=== PATIENT | female | born 1995 | race Caucasian/White ===

== ENCOUNTER 2016-06-08 20:56 | Inpatient (IN) | payer MEDICAID ==
[2016-06-08] MEDS ORDERED: Nalbuphine 20 MG/1 ML Amp IVPUSH PRN (22:03)
[2016-06-08] MEDS ORDERED: Lidocaine 1% 50 ML MDV INJECT ONE (22:03)
[2016-06-08] MEDS ORDERED: Sodium Chloride 0.9% 10 ML Syringe FLUSH PRN (22:03)
[2016-06-08] MEDS ORDERED: Oxytocin/Lactated Ringers 10 UNIT/1,000 ML BAG IV SCH (22:15)
--- NOTE | 2016-06-08 23:19 | PCM.LDHP ---
L&D History of Present Illness - General Date of Service: 06/08/16 Admit Problem/Dx: Patient Status Order with Admit Dx/Problem 06/08/16 22:11 Patient Status [ADT] Routine Admission Diagnosis/Problem Admission Diagnosis/Problem Source of Information: Patient History Limitations: Reports: No limitations - History of Present Illness Introduction:: 21 y/o at 38 0/7 wks who presents with SROM. Occurred around 1999. Has been having some mild cramping, but no balwinder contractions. - Related Data Allergies/Adverse Reactions: Allergies Allergy/AdvReac Type Severity Reaction Status Date / Time red dye AdvReac Headache Verified 01/02/15 16:15 cigarette smoke Allergy Bronchospas Uncoded 07/09/13 19:45 ms mosquitos Allergy Rash Uncoded 07/09/13 19:45 red dye 40 AdvReac Headache Uncoded 05/13/14 13:04 Home Medications: Home Meds Albuterol Inhaler. 1 puff INH ASDIRECTED PRN 07/09/13 [History] Past Medical History [employer] History: Reports: Polycystic Ovaries, , Spontaneous : 2 Para: 0 LMP (Approximate): Neurological History: Reports: Migraines Psychiatric History: Reports: Depression Endocrine/Metabolic History: Reports: Hypothyroidism Hematologic History: Reports: Other (see below) (Factor V Leiden - Heterozygote , no personal history of clot) - Past Surgical History HEENT Surgical History: Reports: Tonsillectomy Musculoskeletal Surgical History: Reports: Arthroscopic knee Social & Family History - Tobacco Use Smoking Status *Q: Never Smoker Second Hand Smoke Exposure: No - Alcohol Use Alcohol Use History: No Days Per Week of Alcohol Use: 0 - Recreational Drug Use Recreational Drug Use: No Drug Use in Last 12 Months: No H&P Review of Systems - Review of Systems: Review Of Systems: See Below General: Reports: no symptoms Pulmonary: Reports: No Symptoms Cardiovascular: Reports: no symptoms Gastrointestinal: Reports: No symptoms Genitourinary: Reports: no symptoms Musculoskeletal: Reports: no symptoms Psychiatric: Reports: no symptoms L&D Exam - Exam Exam: See Below - Vital Signs Weight: 80.739 kg - OB Specific Contraction Intensity: Mild movement: active heart tones: present heart tones per min: 135 Heart Rate (FHR) Variability: Moderate (6-25 bmp) Presentation: Vertex - Velázquez Score Velázquez Score Cervix Position: Midposition Velázquez Score Consistency: Soft Velázquez Score Effacement: 51-70% Velázquez Score Dilation: 3-4 cm Velázquez Score 's Station: -2 Velázquez Score Total: 8 - Exam General: alert, oriented, cooperative Lungs: Clear to auscultation, Normal respiratory effort Cardiovascular: regular rate, regular rhythm Abdomen: soft Genitourinary: Normal external exam Extremities: normal inspection Skin: warm, dry, intact - Patient Data Lab Results last 24 hrs: Laboratory Results - last 24 hr 06/08/16 Range/Units 22:25 WBC 14.75 H (3.98-10.04) K/mm3 RBC 4.31 (3.98-5.22) M/mm3 Hgb 12.7 (11.2-15.7) gm/L Hct 37.4 (34.1-44.9) % MCV 86.8 (79.4-94.8) fl MCH 29.5 (25.6-32.2) pg MCHC 34.0 (32.2-35.5) g/dl RDW Std Deviation 41.0 (36.4-46.3) fL Plt Count 267 (182-369) K/mm3 MPV 9.9 (9.4-12.3) fl Result Diagrams: 06/08/16 22:25 - Problem List (1) 38 weeks gestation of SNOMED Code(s): 46965612 ICD Code: Z3A.38 - 38 WEEKS GESTATION OF Status: Acute Current Visit: Yes (2) Spontaneous rupture of membranes SNOMED Code(s): 892747459 ICD Code: CTI0644 - Status: Acute Current Visit: Yes (3) Heterozygous factor V Leiden affecting in third trimester, antepartum SNOMED Code(s): 840781970 ICD Code: O99.113 - OTH DIS OF BLD/BLD-FORM ORG/IMMUN MECHNSM COMP PREG, 3RD TRI; D68.51 - ACTIVATED PROTEIN C RESISTANCE Status: Acute Current Visit: Yes (4) Hypothyroid SNOMED Code(s): 37517958 ICD Code: E03.9 - HYPOTHYROIDISM, UNSPECIFIED Status: Acute Current Visit : Yes Qualifiers: Hypothyroidism type: acquired Qualified Code(s): E03.9 - Hypothyroidism, unspecified Problem List Initiated/Reviewed/Updated: Yes Orders Last 24hrs: Active Orders 24 hr Category Date Time Status Patient Status [ADT] Routine ADT 06/08/16 22:11 Active Activity as Tolerated [RC] PFP Care 06/08/16 22:11 Active Communication Order [RC] ASDIRECTED Care 06/08/16 22:11 Active Heart Tones [RC] ASDIRECTED Care 06/08/16 22:12 Active Notify Provider [RC] PFP Care 06/08/16 22:11 Active Notify Provider [RC] PRN Care 06/08/16 22:11 Active Peripheral IV Care [RC] . DIRECTED Care 06/08/16 22:12 Active Vital Signs [RC] PER UNIT ROUTINE Care 06/08/16 22:11 Active Clear Liquid Diet [DIET] Diet 06/08/16 Breakfast Active TYPE AND SCREEN [BBK] Stat Lab 06/08/16 22:25 Received Lactated Ringers [Ringers, Lactated] 1,000 ml Med 06/08/16 22:15 Active IV ASDIRECTED Nalbuphine [Nubain] Med 06/08/16 22:03 Active 10 mg IVPUSH Q2H PRN Oxytocin/Lactated Ringers [Pitocin in LR 10 Units/1,000 Med 06/08/16 22:15 Active ML] 10 unit in 1,000 ml IV TITRATE Sodium Chloride 0.9% [Saline Flush] Med 06/08/16 22:03 Active 10 ml FLUSH ASDIRECTED PRN Electronic Heart Tones Ext w TOCO [WOMSER] Oth 06/08/16 22:11 Ordered Routine Electronic Heart Tones Internal [WOMSER] Per Unit Oth 06/08/16 22:11 Ordered Routine Peripheral IV Insertion Adult [OM.PC] Routine Oth 06/08/16 22:11 Ordered Resuscitation Status Routine Resus Stat 06/08/16 22:03 Ordered Medication Orders Lactated Ringer's (Ringers, Lactated) 1,000 mls @ 100 mls/hr IV ASDIRECTED LUCAS Oxytocin/Lactated Ringer's (Pitocin In Lr 10 Units/1,000 Ml) 10 unit in 1,000 mls @ 500 mls/hr IV TITRATE LUCAS PRN Reason: Protocol Nalbuphine HCl (Nubain) 10 mg IVPUSH Q2H PRN PRN Reason: Pain (moderate 4-6) Sodium Chloride (Saline Flush) 10 ml FLUSH ASDIRECTED PRN PRN Reason: Keep Vein Open Assessment/Plan Comment:: 21 y/o at 38 0/7 wks who presents with SROM * CBC and T&S * GBS negative, no need for antibiotics * Start pitocin in ~2 hours if no increase in contractions * Pain management per patient preference * Continue home Synthroid * Heterozygote Factor V - Not on anti-coagulation. May need to start depending upon method/circumstances of delivery.
[2016-06-09] MEDS ORDERED: fentaNYL 100 MCG/2 ML SDV EPIDUR PRN (00:49)
[2016-06-09] MEDS ORDERED: Ondansetron 4 MG/2 ML SDV IVPUSH PRN (00:49)
--- NOTE | 2016-06-09 00:55 | PCM.PREANE ---
Preanesthetic Assessment - Anesthesia/Transfusion/Family Hx Anesthesia History: Prior Anesthesia Without Reaction Family History of Anesthesia Reaction: No Transfusion History: No Prior Transfusion(s) Intubation History: Unknown - Review of Systems General: No Symptoms Pulmonary: No Symptoms (exercise induced asthma- last used rescue inhaler 1 year ago.) Cardiovascular: No Symptoms Gastrointestinal: No symptoms Neurological: No Symptoms Other: Reports: Thyroid Problems (hypothyroid) - Physical Assessment NPO Status Date: 06/08/16 NPO Status Time: 19:30 Pulse: 105 O2 Sat by Pulse Oximetry: 97 Respiratory Rate: 16 Blood Pressure: 115/72 Temperature: 37.1 C Height: 1.6 m Weight: 80.739 kg ASA Class: 2 Mental Status: Alert & Oriented x3 Airway Class: Mallampati = 2 Dentition: Reports: Normal Dentition, Caries Thyro-Mental Finger Breadths: 3 Mouth Opening Finger Breadths: 3 ROM/Head Extension: Full Lungs: Clear to auscultation, Normal respiratory effort Cardiovascular: Regular Rate, Regular Rhythm - Lab Values: Laboratory Last Values WBC 14.75 K/mm3 (3.98-10.04) H 06/08/16 22:25 RBC 4.31 M/mm3 (3.98-5.22) 06/08/16 22:25 Hgb 12.7 gm/L (11.2-15.7) 06/08/16 22:25 Hct 37.4 % (34.1-44.9) 06/08/16 22:25 MCV 86.8 fl (79.4-94.8) 06/08/16 22:25 MCH 29.5 pg (25.6-32.2) 06/08/16 22:25 MCHC 34.0 g/dl (32.2-35.5) 06/08/16 22:25 RDW Std Deviation 41.0 fL (36.4-46.3) 06/08/16 22:25 Plt Count 267 K/mm3 (182-369) 06/08/16 22:25 MPV 9.9 fl (9.4-12.3) 06/08/16 22:25 Blood Type AB POSITIVE 06/08/16 22:25 Gel Antibody Screen Negative 06/08/16 22:25 Above lab values reviewed and noted. - Allergies Allergies/Adverse Reactions: Allergies Allergy/AdvReac Type Severity Reaction Status Date / Time red dye AdvReac Headache Verified 01/02/15 16:15 cigarette smoke Allergy Bronchospas Uncoded 07/09/13 19:45 ms mosquitos Allergy Rash Uncoded 07/09/13 19:45 red dye 40 AdvReac Headache Uncoded 05/13/14 13:04 - Anesthesia Plan Pre-Op Medication Ordered: None - Acknowledgements Anesthesia Type Planned: Epidural Pt an Appropriate Candidate for the Planned Anesthesia: Yes Alternatives and Risks of Anesthesia Discussed w Pt/Guardian: Yes Pt/Guardian Understands and Agrees with Anesthesia Plan: Yes PreAnesthesia Questionnaire - SUBSTANCE USE Smoking Status *Q: Never Smoker Second Hand Smoke Exposure: No Days Per Week of Alcohol Use: 0 Recreational Drug Use History: No - HOME MEDS Home Medications: Home Meds Albuterol Inhaler. 1 puff INH ASDIRECTED PRN 07/09/13 [History] Topiramate [Topamax] 100 mg PO BEDTIME 01/02/15 [History] Hydrocodone/Acetaminophen [[place] 5-325] 1 - 2 tab PO Q4H PRN #30 tablet [Rx] - CURRENT (IN HOUSE) MEDS Current Meds: Current Medications Ephedrine Sulfate (Ephedrine Sulfate) 5 mg IVPUSH ASDIRECTED PRN PRN Reason: Hypotension Fentanyl (Sublimaze) 100 mcg EPIDUR Q3H PRN PRN Reason: Pain Fentanyl/Bupivacaine HCl (Fentanyl/Bupivacaine/Ns 2 Mcg-0.125% 100 Ml) 100 ml EPIDUR ASDIRECTED LUCAS Lactated Ringer's (Ringers, Lactated) 1,000 mls @ 100 mls/hr IV ASDIRECTED LUCAS Oxytocin/Lactated Ringer's (Pitocin In Lr 10 Units/1,000 Ml) 10 unit in 1,000 mls @ 500 mls/hr IV TITRATE LUCAS PRN Reason: Protocol Nalbuphine HCl (Nubain) 10 mg IVPUSH Q2H PRN PRN Reason: Pain (moderate 4-6) Ondansetron HCl (Zofran) 4 mg IVPUSH ONETIME PRN PRN Reason: Nausea/Vomiting Sodium Chloride (Saline Flush) 10 ml FLUSH ASDIRECTED PRN PRN Reason: Keep Vein Open Discontinued Medications Lidocaine HCl (Xylocaine 1%) 50 ml INJECT ONETIME ONE Stop: 06/08/16 22:04
[2016-06-09] MEDS ORDERED: Bupivacaine/fentaNYL/NS 100 ML Bag EPIDUR SCH (01:00)
[2016-06-09] MEDS ORDERED: Oxytocin/Lactated Ringers 10 UNIT/1,000 ML BAG IV SCH (02:00)
[2016-06-09] MEDS: Lactated Ringers 1,000 ML IV SCH ×3 (02:52→06:10)
[2016-06-09] MEDS: ePHEDrine 50 MG/ML SDV IVPUSH PRN ×2 (04:24→04:36)
--- NOTE | 2016-06-09 08:03 | PCM.DEL ---
L & D Note - Delivery Note Labor: augmented by oxytocin Delivery Outcome: Livebirth Delivery Method: Spontaneous Vaginal Delivery Delivery Mode: Spontaneous Presentation: Right Occiput Anterior (JENNY) Nuchal cord: none Anesthesia Type: Epidural Amniotic Fluid Description: Clear Episiotomy Type: None Laceration: 2nd degree, labial, perineal Suture type: vicryl Suture size: 2-0 Placenta: intact, spontaneous Cord: 3 vessels Estimated blood loss: 300 Resuscitation needed: Yes : bulb syringe, stimulated, warmed, blanket used, warmer used Score 1 min: 8 Score 5 min: 9 Delivery Comments (Free Text/Narrative):: Patient found to be complete and began pushing. With maternal pushing effort head delivered from an JENNY presentation. No nuchal cord present. With gentle downward traction the shoulders and body delivered. placed on maternal abdomen. Cord clamped and cut. Cord blood obtained. Placenta allowed time to separate and spontaneously expelled. Inspection of the perineum showed a second-degree laceration which did extend up to the left labia. This was repaired with a running 2-0 Vicryl in the typical fashion. - Patient Data Vitals - most recent: Last Vital Signs Temp 37.1 C 06/09/16 01:05 Pulse 105 H 06/09/16 01:05 Resp 16 06/09/16 01:05 BP 115/72 06/09/16 01:05 Pulse Ox 97 06/09/16 01:05 Weight - most recent: 80.739 kg I&O - last 24 hours: Intake & Output 06/08/16 06/09/16 06/09/16 22:59 06:59 14:59 Intake Total 1999 Balance 1999 Lab Results last 24 hrs: Laboratory Results - last 24 hr 06/08/16 06/08/16 Range/Units 22:25 22:25 WBC 14.75 H (3.98-10.04) K/mm3 RBC 4.31 (3.98-5.22) M/mm3 Hgb 12.7 (11.2-15.7) gm/L Hct 37.4 (34.1-44.9) % MCV 86.8 (79.4-94.8) fl MCH 29.5 (25.6-32.2) pg MCHC 34.0 (32.2-35.5) g/dl RDW Std Deviation 41.0 (36.4-46.3) fL Plt Count 267 (182-369) K/mm3 MPV 9.9 (9.4-12.3) fl Blood Type AB POSITIVE Gel Antibody Screen Negative Med Orders - Current: Current Medications Ephedrine Sulfate (Ephedrine Sulfate) 5 mg IVPUSH ASDIRECTED PRN PRN Reason: Hypotension Last Admin: 06/09/16 04:36 Dose: 5 mg Fentanyl (Sublimaze) 100 mcg EPIDUR Q3H PRN PRN Reason: Pain Last Admin: 06/09/16 03:20 Dose: 100 mcg Fentanyl/Bupivacaine HCl (Fentanyl/Bupivacaine/Ns 2 Mcg-0.125% 100 Ml) 100 ml EPIDUR ASDIRECTED LUCAS Last Admin: 06/09/16 03:20 Dose: 100 ml Lactated Ringer's (Ringers, Lactated) 1,000 mls @ 100 mls/hr IV ASDIRECTED LUCAS Last Admin: 06/09/16 06:10 Dose: 100 mls/hr Oxytocin/Lactated Ringer's (Pitocin In Lr 10 Units/1,000 Ml) 10 unit in 1,000 mls @ 500 mls/hr IV TITRATE LUCAS PRN Reason: Protocol Oxytocin/Lactated Ringer's (Pitocin In Lr 10 Units/1,000 Ml) 10 unit in 1,000 mls @ 12 mls/hr IV TITRATE LUCAS; 2 MUNITS/MIN PRN Reason: Protocol Last Admin: 06/09/16 03:50 Dose: 2 munits/min, 12 mls/hr Nalbuphine HCl (Nubain) 10 mg IVPUSH Q2H PRN PRN Reason: Pain (moderate 4-6) Last Admin: 06/09/16 02:21 Dose: 10 mg Ondansetron HCl (Zofran) 4 mg IVPUSH ONETIME PRN PRN Reason: Nausea/Vomiting Stop: 06/10/16 00:50 Sodium Chloride (Saline Flush) 10 ml FLUSH ASDIRECTED PRN PRN Reason: Keep Vein Open Discontinued Medications Lidocaine HCl (Xylocaine 1%) 50 ml INJECT ONETIME ONE Stop: 06/08/16 22:04 - Problem List & Annotations (1) 38 weeks gestation of SNOMED Code(s): 47322483 Code(s): Z3A.38 - 38 WEEKS GESTATION OF Status: Acute Current Visit: Yes (2) Spontaneous rupture of membranes SNOMED Code(s): 549857383 Code(s): TTC6811 - Status: Acute Current Visit: Yes (3) Heterozygous factor V Leiden affecting in third trimester, antepartum SNOMED Code(s): 817308158 Code(s): O99.113 - OTH DIS OF BLD/BLD-FORM ORG/IMMUN MECHNSM COMP PREG, 3RD TRI; D68.51 - ACTIVATED PROTEIN C RESISTANCE Status: Acute Current Visit: Yes (4) Hypothyroid SNOMED Code(s): 42666516 Code(s): E03.9 - HYPOTHYROIDISM, UNSPECIFIED Status: Acute Current Visit : Yes Qualifiers: Hypothyroidism type: acquired Qualified Code(s): E03.9 - Hypothyroidism, unspecified (5) Vaginal delivery SNOMED Code(s): 907359918 Code(s): O80 - ENCOUNTER FOR FULL-TERM UNCOMPLICATED DELIVERY Status: Acute Current Visit: Yes - Problem List Review Problem List Initiated/Reviewed/Updated: Yes - My Orders Last 24 Hours: My Active Orders 06/08/16 22:03 Nalbuphine [Nubain] 10 mg IVPUSH Q2H PRN Sodium Chloride 0.9% [Saline Flush] 10 ml FLUSH ASDIRECTED PRN Resuscitation Status Routine 06/08/16 22:11 Patient Status [ADT] Routine Activity as Tolerated [RC] PFP Communication Order [RC] ASDIRECTED Notify Provider [RC] PFP Notify Provider [RC] PRN Vital Signs [RC] PER UNIT ROUTINE Electronic Heart Tones Ext w TOCO [WOMSER] Routine Electronic Heart Tones Internal [WOMSER] Per Unit Routine Peripheral IV Insertion Adult [OM.PC] Routine 06/08/16 22:12 Heart Tones [RC] ASDIRECTED Peripheral IV Care [RC] . DIRECTED 06/08/16 22:15 Lactated Ringers [Ringers, Lactated] 1,000 ml IV ASDIRECTED Oxytocin/Lactated Ringers [Pitocin in LR 10 Units/1,000 ML] 10 unit in 1,000 ml IV TITRATE 06/08/16 22:25 PATIENT RETYPE [BBK] Stat TYPE AND SCREEN [BBK] Stat 04/19/17 02:00 Oxytocin/Lactated Ringers [Pitocin in LR 10 Units/1,000 ML] 10 unit in 1,000 ml IV TITRATE - Assessment Assessment:: 21 y/o G2 now P1011 PPD#0 from at 38 0/7 wks - Plan Plan:: * Routine cares * Encourage breast-feeding * Discharged home in 1-2 days pending patient preference Hypothyroidism * Continue home Synthroid * TSH at check Heterozygote Factor V * No personal history of clot. Has not been on anticoagulation this . Given delivery was uncomplicated and she was only with an epidural for about 6 hours I do think it's reasonable to continue without anticoagulation. Will monitor, however, closely for any signs of DVT
[2016-06-09] MEDS ORDERED: Docusate Sodium 100 MG Cap PO PRN (08:30)
[2016-06-09] MEDS ORDERED: Benzocaine/Menthol 20%-0.5% Spray 56 GM Canister TOP PRN (08:30)
[2016-06-09] MEDS ORDERED: Witch Hazel Medicated Pads 100/Jar TOP PRN (08:30)
[2016-06-09] MEDS ORDERED: Bupivacaine 0.25% 10 ML SDV ONE (08:30)
[2016-06-09] MEDS ORDERED: Acetaminophen 325 MG Tab PO PRN (08:30)
[2016-06-09] MEDS ORDERED: Lanolin 100% Cream 7 GM Tube TOP PRN (08:30)
[2016-06-09] MEDS: Ibuprofen 600 MG Tab PO PRN ×3 (09:57→23:16)
--- NOTE | 2016-06-09 15:16 | PCM48HPAN ---
Post Anesthesia Note - EVALUATION WITHIN 48HRS OF ANESTHETIC Vital Signs in Normal Range: Yes Patient Participated in Evaluation: Yes Respiratory Function Stable: Yes Airway Patent: Yes Cardiovascular Function Stable: Yes Hydration Status Stable: Yes Pain Control Satisfactory: Yes Nausea and Vomiting Control Satisfactory: Yes Mental Status Recovered: Yes
[2016-06-10] MEDS ORDERED: Levothyroxine 25 MCG Tab PO SCH (06:00)
--- NOTE | 2016-06-10 07:02 | PCM.DCSUM1 ---
Discharge Summary - Discharge Data Discharge Date: 06/10/16 Discharge Disposition: Home, Self-Care 01 Condition: Good - Discharge Diagnosis/Problem(s) (1) 38 weeks gestation of SNOMED Code(s): 63998541 ICD Code: Z3A.38 - 38 WEEKS GESTATION OF Status: Acute (2) Spontaneous rupture of membranes SNOMED Code(s): 292949541 ICD Code: MXG7641 - Status: Acute (3) Heterozygous factor V Leiden affecting in third trimester, antepartum SNOMED Code(s): 994267687 ICD Code: O99.113 - OTH DIS OF BLD/BLD-FORM ORG/IMMUN MECHNSM COMP PREG, 3RD TRI; D68.51 - ACTIVATED PROTEIN C RESISTANCE Status: Acute (4) Hypothyroid SNOMED Code(s): 02765992 ICD Code: E03.9 - HYPOTHYROIDISM, UNSPECIFIED Status: Acute Qualifiers: Hypothyroidism type: acquired Qualified Code(s): E03.9 - Hypothyroidism, unspecified (5) Vaginal delivery SNOMED Code(s): 736255181 ICD Code: O80 - ENCOUNTER FOR FULL-TERM UNCOMPLICATED DELIVERY Status: Acute - Patient Summary/Data Complications: None Consults: None Recommended Follow-up Testing/Procedures: Follow up in 5-6 weeks for check Hospital Course: 21 y/o admitted at 37 6/7 wks with SROM. Pitocin was eventually started for augmentation. She progressed well and underwent an uncomplicated . See delivery note. she did well and was discharged home on PPD #1. - Patient Instructions Diet: Regular Diet as Tolerated Activity: As Tolerated Activity, Other: Pelvic Rest for 6 weeks Driving: May Drive Today Showering/Bathing: May Shower Showering/Bathing, Other: May Bathe Notify Provider of: Fever, Increased Pain, Swelling and Redness, Drainage, Nausea and/or Vomiting - Discharge Plan Home Medications: Home Meds Albuterol Inhaler. 1 puff INH ASDIRECTED PRN 07/09/13 [History] Docusate Sodium [Colace] 100 mg PO BID PRN #0 cap 06/09/16 [Rx] Ibuprofen [IJD: Ibuprofen] 600 mg PO Q6H PRN #0 tablet 06/09/16 [Rx] Levothyroxine 25 mcg PO ACBREAKFAST tablet 06/09/16 [Rx] Patient Handouts: , Home Care Instructions for Mom Referrals: Amina Mustafa MD [Physician] - (5-6 weeks for check ) - Discharge Summary/Plan Comment DC Time >30 min.: No - Patient Data Vitals - Most Recent: Last Vital Signs Temp 36.8 C 06/10/16 04:11 Pulse 64 06/10/16 04:11 Resp 17 06/10/16 04:11 BP 110/65 06/10/16 04:11 Pulse Ox 97 06/10/16 04:11 Weight - Most Recent: 80.739 kg I&O - Last 24 hours: Intake & Output 06/09/16 06/10/16 06/10/16 22:59 06:59 14:59 Intake Total 240 Balance 240 Lab Results - Last 24 hrs: Laboratory Results - last 24 hr 06/08/16 Range/Units 22:25 Blood Type AB POSITIVE Gel Antibody Screen Negative Med Orders - Current: Current Medications Acetaminophen (Tylenol) 650 mg PO Q4H PRN PRN Reason: mild pain or fever Benzocaine/Menthol (Dermoplast Pain Relief [place]) 0 gm TOP ASDIRECTED PRN PRN Reason: Perineal Comfort Measure Last Admin: 06/09/16 09:19 Dose: 1 spray Docusate Sodium (Colace) 100 mg PO BID PRN PRN Reason: Constipation Emollient Ointment (Lansinoh Hpa) 0 gm TOP ASDIRECTED PRN PRN Reason: Sore Nipples Ibuprofen (Motrin) 600 mg PO Q6H PRN PRN Reason: Mild pain or fever Last Admin: 06/09/16 23:16 Dose: 600 mg Levothyroxine Sodium (Levothyroxine) 25 mcg PO ACBREAKFAST [facility] (Tucks) 1 pad TOP ASDIRECTED PRN PRN Reason: Hemorrhoid pain Last Admin: 06/09/16 09:19 Dose: 1 pad Discontinued Medications Ephedrine Sulfate (Ephedrine Sulfate) 5 mg IVPUSH ASDIRECTED PRN PRN Reason: Hypotension Last Admin: 06/09/16 04:36 Dose: 5 mg Fentanyl (Sublimaze) 100 mcg EPIDUR Q3H PRN PRN Reason: Pain Last Admin: 06/09/16 03:20 Dose: 100 mcg Fentanyl/Bupivacaine HCl (Fentanyl/Bupivacaine/Ns 2 Mcg-0.125% 100 Ml) 100 ml EPIDUR ASDIRECTED LUCAS Last Admin: 06/09/16 03:20 Dose: 100 ml Lactated Ringer's (Ringers, Lactated) 1,000 mls @ 100 mls/hr IV ASDIRECTED LUCAS Last Admin: 06/09/16 06:10 Dose: 100 mls/hr Oxytocin/Lactated Ringer's (Pitocin In Lr 10 Units/1,000 Ml) 10 unit in 1,000 mls @ 500 mls/hr IV TITRATE LUCAS PRN Reason: Protocol Oxytocin/Lactated Ringer's (Pitocin In Lr 10 Units/1,000 Ml) 10 unit in 1,000 mls @ 12 mls/hr IV TITRATE LUCAS; 2 MUNITS/MIN PRN Reason: Protocol Last Admin: 06/09/16 03:50 Dose: 2 munits/min, 12 mls/hr Lidocaine HCl (Xylocaine 1%) 50 ml INJECT ONETIME ONE Stop: 06/08/16 22:04 Nalbuphine HCl (Nubain) 10 mg IVPUSH Q2H PRN PRN Reason: Pain (moderate 4-6) Last Admin: 06/09/16 02:21 Dose: 10 mg Ondansetron HCl (Zofran) 4 mg IVPUSH ONETIME PRN PRN Reason: Nausea/Vomiting Stop: 06/10/16 00:50 Sodium Chloride (Saline Flush) 10 ml FLUSH ASDIRECTED PRN PRN Reason: Keep Vein Open *Q Meaningful Use (DIS) - VTE *Q VTE Criteria *Q: - Stroke *Q Stroke Criteria *Q: - AMI *Q AMI Criteria *Q:
--- NOTE | 2016-06-10 07:02 | PCM.PNPP ---
- General Info Date of Service: 06/10/16 Functional Status: Reports: pain controlled, tolerating diet, ambulating, urinating - Review of Systems General: Reports: No Symptoms Pulmonary: Reports: no symptoms Cardiovascular: Reports: No Symptoms Gastrointestinal: Reports: No symptoms Genitourinary: Reports: no symptoms Musculoskeletal: Reports: no symptoms - Patient Data Vital Signs - most recent: Last Vital Signs Temp 36.8 C 06/10/16 04:11 Pulse 64 06/10/16 04:11 Resp 17 06/10/16 04:11 BP 110/65 06/10/16 04:11 Pulse Ox 97 06/10/16 04:11 Weight - most recent: 80.739 kg I&O - last 24 hours: Intake & Output 06/09/16 06/10/16 06/10/16 22:59 06:59 14:59 Intake Total 240 Balance 240 Lab Results - last 24 hrs: Laboratory Results - last 24 hr 06/08/16 Range/Units 22:25 Blood Type AB POSITIVE Gel Antibody Screen Negative Med Orders - Current: Current Medications Acetaminophen (Tylenol) 650 mg PO Q4H PRN PRN Reason: mild pain or fever Benzocaine/Menthol (Dermoplast Pain Relief [place]) 0 gm TOP ASDIRECTED PRN PRN Reason: Perineal Comfort Measure Last Admin: 06/09/16 09:19 Dose: 1 spray Docusate Sodium (Colace) 100 mg PO BID PRN PRN Reason: Constipation Emollient Ointment (Lansinoh Hpa) 0 gm TOP ASDIRECTED PRN PRN Reason: Sore Nipples Ibuprofen (Motrin) 600 mg PO Q6H PRN PRN Reason: Mild pain or fever Last Admin: 06/09/16 23:16 Dose: 600 mg Levothyroxine Sodium (Levothyroxine) 25 mcg PO ACBREAKFAST [facility] (Tucks) 1 pad TOP ASDIRECTED PRN PRN Reason: Hemorrhoid pain Last Admin: 06/09/16 09:19 Dose: 1 pad Discontinued Medications Ephedrine Sulfate (Ephedrine Sulfate) 5 mg IVPUSH ASDIRECTED PRN PRN Reason: Hypotension Last Admin: 06/09/16 04:36 Dose: 5 mg Fentanyl (Sublimaze) 100 mcg EPIDUR Q3H PRN PRN Reason: Pain Last Admin: 06/09/16 03:20 Dose: 100 mcg Fentanyl/Bupivacaine HCl (Fentanyl/Bupivacaine/Ns 2 Mcg-0.125% 100 Ml) 100 ml EPIDUR ASDIRECTED LUCAS Last Admin: 06/09/16 03:20 Dose: 100 ml Lactated Ringer's (Ringers, Lactated) 1,000 mls @ 100 mls/hr IV ASDIRECTED LUCAS Last Admin: 06/09/16 06:10 Dose: 100 mls/hr Oxytocin/Lactated Ringer's (Pitocin In Lr 10 Units/1,000 Ml) 10 unit in 1,000 mls @ 500 mls/hr IV TITRATE LUCAS PRN Reason: Protocol Oxytocin/Lactated Ringer's (Pitocin In Lr 10 Units/1,000 Ml) 10 unit in 1,000 mls @ 12 mls/hr IV TITRATE LUCAS; 2 MUNITS/MIN PRN Reason: Protocol Last Admin: 06/09/16 03:50 Dose: 2 munits/min, 12 mls/hr Lidocaine HCl (Xylocaine 1%) 50 ml INJECT ONETIME ONE Stop: 06/08/16 22:04 Nalbuphine HCl (Nubain) 10 mg IVPUSH Q2H PRN PRN Reason: Pain (moderate 4-6) Last Admin: 06/09/16 02:21 Dose: 10 mg Ondansetron HCl (Zofran) 4 mg IVPUSH ONETIME PRN PRN Reason: Nausea/Vomiting Stop: 06/10/16 00:50 Sodium Chloride (Saline Flush) 10 ml FLUSH ASDIRECTED PRN PRN Reason: Keep Vein Open - Interaction Infant Disposition, : [place] in Room with Family Infant Interaction: Holding Infant Feeding: Breastfed Infant; Nursed Well Support Person: Mother, Sister, Significant Other - Recovery Exam Fundal Tone: Firm Fundal Level: 1 Fingerbreadths Below Umbilicus Fundal Placement: Midline Lochia Amount: Scant Lochia Color: Serosa/Auberry Episiotomy/Laceration: Approximated Bladder Status: Voiding - Exam General: alert, oriented, cooperative Abdomen: soft, no tenderness Extremities: no edema Skin: warm, dry, intact - Problem List & Annotations (1) 38 weeks gestation of SNOMED Code(s): 64732784 Code(s): Z3A.38 - 38 WEEKS GESTATION OF Status: Acute Current Visit: Yes (2) Spontaneous rupture of membranes SNOMED Code(s): 701979996 Code(s): FTM9769 - Status: Acute Current Visit: Yes (3) Heterozygous factor V Leiden affecting in third trimester, antepartum SNOMED Code(s): 031904943 Code(s): O99.113 - OTH DIS OF BLD/BLD-FORM ORG/IMMUN MECHNSM COMP PREG, 3RD TRI; D68.51 - ACTIVATED PROTEIN C RESISTANCE Status: Acute Current Visit: Yes (4) Hypothyroid SNOMED Code(s): 95830049 Code(s): E03.9 - HYPOTHYROIDISM, UNSPECIFIED Status: Acute Current Visit : Yes Qualifiers: Hypothyroidism type: acquired Qualified Code(s): E03.9 - Hypothyroidism, unspecified (5) Vaginal delivery SNOMED Code(s): 862118789 Code(s): O80 - ENCOUNTER FOR FULL-TERM UNCOMPLICATED DELIVERY Status: Acute Current Visit: Yes - Problem List Review Problem List Initiated/Reviewed/Updated: Yes - My Orders Last 24 Hours: My Active Orders 06/09/16 08:30 Activity as Tolerated [RC] PER UNIT ROUTINE Vital Signs [RC] 04,12,20 Acetaminophen [Tylenol] 650 mg PO Q4H PRN Benzocaine/Menthol [Dermoplast Pain Relief [place]] See Dose Instructions TOP ASDIRECTED PRN Docusate Sodium [Colace] 100 mg PO BID PRN Ibuprofen [Motrin] 600 mg PO Q6H PRN Lanolin [Lansinoh HPA] See Dose Instructions TOP ASDIRECTED PRN [place] [Tucks] 1 pad TOP ASDIRECTED PRN Assess Lochia [WOMSER] Per Unit Routine Assess Uterine Involution [WOMSER] Per Unit Routine Breast Pump [WOMSER] Per Unit Routine Heat Therapy [OM.PC] PRN Ice Therapy [OM.PC] Per Unit Routine Perineal Care [OM.PC] Per Unit Routine Peripheral IV Discontinue [OM.PC] Routine Sitz Bath [OM.PC] Per Unit Routine 06/10/16 06:00 Levothyroxine 25 mcg PO ACBREAKFAST - Assessment Assessment:: 21 y/o G2 now P1011 PPD#1 from at 38 0/7 wks - Plan Plan:: * Routine cares * Encourage breast-feeding * Discharged home likely later today Hypothyroidism * Continue home Synthroid * TSH at check Heterozygote Factor V * No personal history of clot. Has not been on anticoagulation this . Given delivery was uncomplicated it's reasonable to continue without anticoagulation. Will monitor, however, closely for any signs of DVT
[2016-06-10 12:30] VITALS: BP 127/80
== END 2016-06-10 17:30 | disposition home or self-care (01) | DRG 775 ==
LOC: JD.OBCHECK 20:56 → JD.OB 20:57 → JD.OBCHECK 22:11 → OBSVTOIN 06-09 07:34 → JD.OB 06-09 07:34 → UNDODISIN 06-09 16:15
PROVIDERS: ADMIT Obstetrics & Gynecology; ATTEND Obstetrics & Gynecology
PROC: 10E0XZZ Delivery of Products of Conception, External Approach (ICD-10-PCS; principal; 2016-06-09)
PROC: 0KQM0ZZ Repair Perineum Muscle, Open Approach (ICD-10-PCS; 2016-06-09)
PROC: 00HU33Z Insertion of Infusion Device into Spinal Canal, Percutaneous Approach (ICD-10-PCS; 2016-06-09)
PROC: 3E0R3CZ (ICD-10-PCS; 2016-06-09)
DX: O42.92 Full-term premature rupture of membranes, unspecified as to length of time between rupture and onset of labor (principal); O99.113 Other diseases of the blood and blood-forming organs and certain disorders involving the immune mechanism complicating pregnancy, third trimester; O99.284 Endocrine, nutritional and metabolic diseases complicating childbirth; E03.9 Hypothyroidism, unspecified; O70.1 Second degree perineal laceration during delivery; Z3A.38 38 weeks gestation of pregnancy; Z37.0 Single live birth; Z79.899 Other long term (current) drug therapy; Z91.038 Other insect allergy status; Z91.02 Food additives allergy status; Z91.048 Other nonmedicinal substance allergy status
CPT/HCPCS: 36415; 85027; 86850; 86900; 86901; A9270-GY; J2300; J2590; J3010; J7120

== ENCOUNTER 2017-04-09 20:09 | Emergency (ER) | payer MEDICAID, OTHER ==
[2017-04-09 20:21] VITALS: BP 133/82
[2017-04-09] MEDS ORDERED: HYDROmorphone 0.5 MG/0.5 ML SYRINGE IVPUSH ONE (20:43)
[2017-04-09] MEDS ORDERED: Ondansetron 4 MG/2 ML SDV IVPUSH ONE (20:43)
[2017-04-09] MEDS ORDERED: Sodium Chloride 0.9% 1,000 ML IV SCH ×2 (20:45→22:30)
--- NOTE | 2017-04-09 20:49 | EDM.PDOC ---
ED HPI GENERAL MEDICAL PROBLEM - General Chief Complaint: Abdominal Pain Stated Complaint: ABDOMINAL AND BACK PAIN Time Seen by Provider: 04/09/17 20:24 Source of Information: Reports: Patient, Family (Sister) History Limitations: Reports: No Limitations - History of Present Illness INITIAL COMMENTS - FREE TEXT/NARRATIVE: The patient states that she developed crampy right lower quadrant abdominal pain and stabbing low back pain around 14:00 this afternoon. The pain has been constant and progressively getting worse. She finds that it is worse if she walks. She has had nausea, but no emesis. She had watery diarrhea this morning. She states that she had a fever up to 101 at 18:00 this evening, as measured by an electronic ear thermometer. She reports that she had dysuria since this morning, but no frequency or urgency. She states that she took Aleve around 17: 00 this afternoon, without relief. The patient reports that she had low back pain about 2 weeks ago, and was diagnosed with influenza (?). The patient's PCP is Miriam Gill. Back Pain Score (Numeric/FACES): 9 - Related Data Allergies Allergy/AdvReac Type Severity Reaction Status Date / Time red dye AdvReac Headache Verified 01/02/15 16:15 cigarette smoke Allergy Bronchospas Uncoded 07/09/13 19:45 ms mosquitos Allergy Rash Uncoded 07/09/13 19:45 red dye 40 AdvReac Headache Uncoded 05/13/14 13:04 Home Meds: Home Meds Albuterol Inhaler. 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: Reports: Polycystic Ovaries, , Spontaneous Psychiatric History: Reports: Depression Endocrine/Metabolic History: Reports: Hypothyroidism, Obesity/BMI 30+ Hematologic History: 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 (Factor V Leiden) - Past Surgical History HEENT Surgical History: Reports: Oral Surgery ([place] teeth extraction), Tonsillectomy Musculoskeletal Surgical History: Reports: Arthroscopic Knee (left) Social & Family History - Tobacco Use Smoking Status *Q: Never Smoker Second Hand Smoke Exposure: No - Caffeine Use Caffeine Use: Reports: Coffee, Energy Drinks, Soda Caffeine Use Comment: once per week - Alcohol Use Alcohol Use History: Yes Days Per Week of Alcohol Use: 0 Alcohol Use Frequency: Rarely - Recreational Drug Use Recreational Drug Use: No - Living Situation & Occupation Living situation: Reports: , with Spouse, with Family (1 son) Occupation: Unemployed ED ROS GENERAL - Review of Systems Review Of Systems: ROS reveals no pertinent complaints other than HPI. ED EXAM, RENAL/ - Physical Exam Exam: See Below Exam Limited By: No Limitations General Appearance: Alert, WD/WN, Mild Distress (Appears uncomfortable. Arches her back frequently.) Eye Exam: Bilateral Eye: Normal Inspection Ears: Normal External Exam, Hearing Grossly Normal Nose: Normal Inspection, No Blood Throat/Mouth: Normal Inspection, Normal Lips, Normal Voice, No Airway Compromise Head: Atraumatic, Normocephalic Neck: Normal Inspection, Full Range of Motion Respiratory/Chest: No Respiratory Distress, Lungs Clear, Normal Breath Sounds, No Accessory Muscle Use Cardiovascular: Normal Peripheral Pulses, Regular Rate, Rhythm, No Gallop, No JVD, No Murmur, No Rub GI/Abdominal: Normal Bowel Sounds, Soft, No Organomegaly, No Distention, No Abnormal Bruit, No Mass, Tender (Right lower quadrant only. Nontender elsewhere. Rovsing sign absent. Obtutator sign negative. Psoas sign positive. Heel drop sign positive.), Other (Obese) (Female) Exam: Deferred Rectal (Female) Exam: Deferred Back Exam: Normal Inspection, Full Range of Motion, CVA Tenderness (R) (but the tenderness also to palpation of the right flank, without percussion). No: CVA Tenderness (L) Extremities: Normal Inspection, Normal Range of Motion, No Pedal Edema, Normal Capillary Refill Neurological: Alert, Oriented, Normal Cognition, No Motor/Sensory Deficits Psychiatric: Normal Affect Skin Exam: Warm, Dry, Intact, Normal Color, No Rash, Other (Numerous trans- axial scars to the left forearm) Course - Vital Signs Last Recorded V/S: Last Vital Signs Temp 36.8 C 04/09/17 20:20 Pulse 109 H 04/09/17 20:20 Resp 20 04/09/17 20:20 BP 133/82 04/09/17 20:20 Pulse Ox 97 04/09/17 20:20 - Orders/Labs/Meds Orders: Active Orders 24 hr Category Date Time Status Abdomen Pelvis w Cont [CT] Stat Exams 02/17/18 22:25 Taken Labs: Laboratory Tests 04/09/17 04/09/17 04/09/17 Range/Units 21:05 21:05 21:05 WBC 9.36 (3.98-10.04) K/mm3 RBC 5.35 H (3.98-5.22) M/mm3 Hgb 15.1 (11.2-15.7) gm/L Hct 43.8 (34.1-44.9) % MCV 81.9 (79.4-94.8) fl MCH 28.2 (25.6-32.2) pg MCHC 34.5 (32.2-35.5) g/dl RDW Std Deviation 37.8 (36.4-46.3) fL Plt Count 294 (182-369) K/mm3 MPV 9.7 (9.4-12.3) fl Neutrophils % (Manual) 81 H (40-60) % Band Neutrophils % 0 (0-10) % Lymphocytes % (Manual) 15 L (20-40) % Atypical Lymphs % 0 % Monocytes % (Manual) 2 (2-10) % Eosinophils % (Manual) 2 (0.7-5.8) % Basophils % (Manual) 0 L (0.1-1.2) Platelet Estimate Adequate RBC Morph Comment Normal Sodium (136-145) mEq/L Potassium (3.5-5.1) mEq/L Chloride (98-107) mEq/L Carbon Dioxide (21-32) mEq/L Anion Gap (5-15) BUN (7-18) mg/dL Creatinine (0.55-1.02) mg/dL Est Cr Clr Drug Dosing mL/min Estimated GFR (MDRD) (>60) mL/min BUN/Creatinine Ratio (14-18) Glucose (74-106) mg/dL Calcium (8.5-10.1) mg/dL Total Bilirubin (0.2-1.0) mg/dL AST (15-37) U/L ALT (14-59) U/L Alkaline Phosphatase (46-116) U/L Total Protein (6.4-8.2) g/dl Albumin (3.4-5.0) g/dl Globulin gm/dL Albumin/Globulin Ratio (1-2) Lipase (73-393) U/L Urine Color Yellow (Yellow) Urine Appearance Clear (Clear) Urine pH 7.5 (5.0-8.0) Ur Specific [place] 1.025 (1.005-1.030) Urine Protein 1+ H (Negative) Urine Glucose (UA) Negative (Negative) Urine Ketones Negative (Negative) Urine Occult Blood Trace-intact H (Negative) Urine Nitrite Negative (Negative) Urine Bilirubin Negative (Negative) Urine Urobilinogen 1.0 (0.2-1.0) Ur Leukocyte Esterase Negative (Negative) Urine RBC 0-5 (0-5) /hpf Urine WBC 0-5 (0-5) /hpf Ur Epithelial Cells 5-10 H (0-5) /hpf Urine Bacteria Few (FEW) /hpf Urine Mucus Not seen (FEW) /hpf Urine HCG, Qual Negative (NEGATIVE) 04/09/17 Range/Units 21:05 WBC (3.98-10.04) K/mm3 RBC (3.98-5.22) M/mm3 Hgb (11.2-15.7) gm/L Hct (34.1-44.9) % MCV (79.4-94.8) fl MCH (25.6-32.2) pg MCHC (32.2-35.5) g/dl RDW Std Deviation (36.4-46.3) fL Plt Count (182-369) K/mm3 MPV (9.4-12.3) fl Neutrophils % (Manual) (40-60) % Band Neutrophils % (0-10) % Lymphocytes % (Manual) (20-40) % Atypical Lymphs % % Monocytes % (Manual) (2-10) % Eosinophils % (Manual) (0.7-5.8) % Basophils % (Manual) (0.1-1.2) Platelet Estimate RBC Morph Comment Sodium 141 (136-145) mEq/L Potassium 3.7 (3.5-5.1) mEq/L Chloride 106 (98-107) mEq/L Carbon Dioxide 25 (21-32) mEq/L Anion Gap 13.7 (5-15) BUN 13 (7-18) mg/dL Creatinine 0.9 (0.55-1.02) mg/dL Est Cr Clr Drug Dosing 85.38 mL/min Estimated GFR (MDRD) > 60 (>60) mL/min BUN/Creatinine Ratio 14.4 (14-18) Glucose 99 (74-106) mg/dL Calcium 8.3 L (8.5-10.1) mg/dL Total Bilirubin 1.4 H (0.2-1.0) mg/dL AST 18 (15-37) U/L ALT 25 (14-59) U/L Alkaline Phosphatase 75 (46-116) U/L Total Protein 6.9 (6.4-8.2) g/dl Albumin 4.0 (3.4-5.0) g/dl Globulin 2.9 gm/dL Albumin/Globulin Ratio 1.4 (1-2) Lipase 103 (73-393) U/L Urine Color (Yellow) Urine Appearance (Clear) Urine pH (5.0-8.0) Ur Specific [place] (1.005-1.030) Urine Protein (Negative) Urine Glucose (UA) (Negative) Urine Ketones (Negative) Urine Occult Blood (Negative) Urine Nitrite (Negative) Urine Bilirubin (Negative) Urine Urobilinogen (0.2-1.0) Ur Leukocyte Esterase (Negative) Urine RBC (0-5) /hpf Urine WBC (0-5) /hpf Ur Epithelial Cells (0-5) /hpf Urine Bacteria (FEW) /hpf Urine Mucus (FEW) /hpf Urine HCG, Qual (NEGATIVE) Meds: Medications Discontinued Medications Generic Name Dose Route Start Last Admin Trade Name Freq PRN Reason Stop Dose Admin Diatrizoate Meglum/Diatrizoate Sod 90 ml 04/09/17 23:26 04/09/17 23:56 Gastrografin 37% PO 04/09/17 23:27 90 ml ONETIME ONE Administration Hydromorphone HCl 0.5 mg 04/09/17 20:43 04/09/17 21:05 Dilaudid IVPUSH 04/09/17 20:44 0.5 mg ONETIME ONE Administration Hydromorphone HCl 0.5 mg 04/09/17 23:23 04/09/17 23:27 Dilaudid IVPUSH 04/09/17 23:24 0.5 mg ONETIME STA Administration Sodium Chloride 1,000 mls @ 150 mls/hr 04/09/17 20:45 04/09/17 21:02 Normal Saline IV 150 mls/hr ASDIRECTED LUCAS Administration Sodium Chloride 1,000 mls @ 150 mls/hr 04/09/17 22:30 Normal Saline IV ASDIRECTED LUCAS Iopamidol 125 ml 04/09/17 23:26 04/09/17 23:56 Isovue-300 (61%) IVPUSH 04/09/17 23:27 125 ml ONETIME ONE Administration Ondansetron HCl 4 mg 04/09/17 20:43 04/09/17 21:03 Zofran IVPUSH 04/09/17 20:44 4 mg ONETIME ONE Administration Ondansetron HCl 4 mg 04/10/17 01:40 04/10/17 01:43 Zofran IVPUSH 04/10/17 01:41 4 mg ONETIME ONE Administration Sodium Chloride 10 ml 04/09/17 23:26 04/09/17 23:56 Saline Flush FLUSH 10 ml ONETIME PRN Administration IV FLUSH - Re-Assessments/Exams Free Text/Narrative Re-Assessment/Exam: 04/09/17 20:46 Clinically, the patient is suffering from a UTI. She believes she can provide us an adequate clean catch urine sample, the results of which will direct our workup. In the meantime, I have ordered Dilaudid, Zofran, and IV fluid. 04/10/17 01:32 CT of the abdomen and pelvis with oral and IV contrast is read by virtual radiology as: 1. No acute finding. 2. No CT findings of acute appendicitis. 3. Possible mesenteric adenitis. 04/10/17 02:07 Test results discussed with the patient and her . Yobani's workup is unremarkable and does not swing the cause of her pain, although with the possibility of mesenteric adenitis as seen on the CT scan, the patient may have a viral intestinal illness. I'm recommending [id number] ibuprofen as needed. I offered a prescription for Zofran, which the patient declined. I recommended that if her symptoms persist, that she follow-up with her PCP, Miriam Gill, this coming week. 04/10/17 02:44 As Yumi JUAREZ was discharging the patient, the patient told her that she changed her mind, and would like an [facility] prescription for Zofran. Departure - Departure Time of Disposition: 02:08 Disposition: Home, Self-Care 01 Condition: Good Clinical Impression: Viral enteritis - Discharge Information Instructions: Abdominal Pain, Adult, [id number] Referrals: Kristina Gill, [employer] [facility] [Primary Care Provider] - Forms: ED Department Discharge Additional Instructions: You were seen in the emergency room for lower right abdominal pain and low back pain, with nausea and diarrhea. Workup in the ER included blood work, a urinalysis, a urine test, and a CT scan of your abdomen and pelvis. Your entire workup was unremarkable, although the CT scan suggested that you may have a viral illness of your intestines. This may be the cause of your nausea and diarrhea. Unfortunately, there are no medicines to get rid of an intestinal virus - it will have to run its course. A prescription for antinausea medicine was offered, but declined. We recommend you take [id number] ibuprofen as needed for discomfort. If your symptoms persist, please follow-up with your PCP, Miriam Gill, this coming week. If any other problems, please do not hesitate to return to the ER. - My Orders Last 24 Hours: My Active Orders 04/09/17 22:25 Abdomen Pelvis w Cont [CT] Stat - Assessment/Plan Last 24 Hours: My Active Orders 04/09/17 22:25 Abdomen Pelvis w Cont [CT] Stat
[2017-04-09] MEDS ORDERED: HYDROmorphone 0.5 MG/0.5 ML SYRINGE IVPUSH STA (23:23)
[2017-04-09] MEDS ORDERED: Iopamidol 612 MG/ML 150 ML Bottle IVPUSH ONE (23:26)
[2017-04-09] MEDS ORDERED: Diatrizoate Meglumine/Diatrizoate Sodium 37% 120 ML Bottle PO ONE (23:26)
[2017-04-09] MEDS ORDERED: Sodium Chloride 0.9% 10 ML Syringe FLUSH PRN (23:26)
[2017-04-10] MEDS ORDERED: Ondansetron 4 MG/2 ML SDV IVPUSH ONE (01:40)
--- NOTE | 2017-04-10 13:01 | CT ---
CT abdomen and pelvis Technique: Multiple axial sections were obtained from above the dome of the diaphragm inferiorly through the pubic symphysis. Intravenous and oral contrast was utilized. Comparison: Prior CT abdomen and pelvis exam of 08/17/13. Findings: Visualized lung bases shows nothing acute. Liver shows no focal parenchymal abnormality. Spleen appears within normal limits. Calcification is noted within both adrenal glands. This is stable from previous exam. Pancreas is within normal limits. Kidneys show symmetric contrast enhancement without hydronephrosis or mass. Gallbladder contains no calcified gallstones. Aorta shows no aneurysmal dilatation. No retroperitoneal adenopathy or mesenteric abnormalities are seen. No pelvic mass or adenopathy is identified. Appendix is not well identified. Scattered small mesenteric lymph nodes are seen believed to be within normal limits. No free fluid or inflammatory change is seen. No pelvic abnormalities are identified. Bone window settings were reviewed which appear within normal limits for the patient's age. Impression: 1. Stable calcification within both adrenal glands. 2. Nothing acute is appreciated on CT study of the abdomen and pelvis. No appreciable change is seen from previous CT exam. Diagnostic code #2 I agree with preliminary report issued by [employer] ([employer] preliminary report dictated on 04/10/17, 2:03 AM Central Time)
== END 2017-04-10 02:47 | disposition home or self-care (01) ==
LOC: JD.ED 20:09
DX: A08.4 Viral intestinal infection, unspecified (principal); E03.9 Hypothyroidism, unspecified; J45.909 Unspecified asthma, uncomplicated; D68.2 Hereditary deficiency of other clotting factors; Z91.02 Food additives allergy status; Z79.899 Other long term (current) drug therapy
CPT/HCPCS: 36415; 74177; 80053; 81001; 81025; 83690; 85025; 96361; 96374; 96375; 96376; 99284; J1170; J2405; J7040; J7050; Q9963; Q9967

== ENCOUNTER 2017-08-31 16:33 | Emergency (ER) | payer OTHER ==
[2017-08-31 16:49] VITALS: BP 122/66
[2017-08-31] MEDS ORDERED: Sodium Chloride 0.9% 10 ML Syringe FLUSH PRN (17:22)
[2017-08-31] MEDS ORDERED: diphenhydrAMINE 50 MG/ML SDV IVPUSH ONE (17:25)
[2017-08-31] MEDS ORDERED: Ketorolac 30 MG/ML SDV IVPUSH ONE (17:25)
[2017-08-31] MEDS ORDERED: Metoclopramide 10 MG/2 ML SDV IVPUSH ONE (17:25)
[2017-08-31] MEDS ORDERED: Sodium Chloride 0.9% 1,000 ML IV SCH (17:30)
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
== END 2017-08-31 19:38 | disposition home or self-care (01) ==
LOC: JD.ED 16:33
DX: O99.281 Endocrine, nutritional and metabolic diseases complicating pregnancy, first trimester (principal); E86.0 Dehydration; O99.351 Diseases of the nervous system complicating pregnancy, first trimester; G43.809 Other migraine, not intractable, without status migrainosus; Z3A.11 11 weeks gestation of pregnancy; Z91.09 Other allergy status, other than to drugs and biological substances; Z91.041 Radiographic dye allergy status
CPT/HCPCS: 36415; 80053; 85025; 96361; 96374; 96375; 99284; J1200; J1885; J2765; J7040; J7050

== ENCOUNTER 2018-03-09 16:54 | Inpatient (IN) | payer OTHER ==
[2018-03-09] MEDS ORDERED: Sodium Chloride 0.9% 10 ML Syringe FLUSH PRN (19:24)
[2018-03-09] MEDS ORDERED: Ondansetron 4 MG/2 ML SDV IVPUSH PRN ×2 (19:24→20:17)
[2018-03-09] MEDS ORDERED: Nalbuphine 20 MG/ML 1 ML Syringe IVPUSH PRN (19:24)
--- NOTE | 2018-03-09 19:25 | PCM.LDHP ---
L&D History of Present Illness - General Date of Service: 03/09/18 Admit Problem/Dx: Patient Status Order with Admit Dx/Problem 03/09/18 17:00 Patient Status [ADT] Routine Admission Diagnosis/Problem Admission Diagnosis/Problem Source of Information: Patient History Limitations: Reports: No Limitations - History of Present Illness Introduction:: Patient is a 23 y/o at 37 5/7 wks who presents for concerns of labor / contractions. These started this afternoon. No bleeding or LOF. - Related Data Allergies/Adverse Reactions: Allergies Allergy/AdvReac Type Severity Reaction Status Date / Time red dye AdvReac Headache Verified 08/31/17 16:45 cigarette smoke Allergy Bronchospas Uncoded 08/31/17 16:45 ms mosquitos Allergy Rash Uncoded 08/31/17 16:45 red dye 40 AdvReac Headache Uncoded 08/31/17 16:45 Home Medications: Home Meds Albuterol Inhaler. 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 : 4 Para: 1 LMP (Approximate): Neurological History: Reports: Migraines Psychiatric History: Reports: Depression Endocrine/Metabolic History: Reports: Hypothyroidism, Obesity/BMI 30+ Hematologic History: 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 Other Hematologic History: Factor V Leiden heterozygote - Past Surgical History HEENT Surgical History: Reports: Oral Surgery, Tonsillectomy Female Surgical History: Reports: D&C Musculoskeletal Surgical History: Reports: Arthroscopic Knee Social & Family History - Tobacco Use Smoking Status *Q: Never Smoker - Caffeine Use Caffeine Use: Reports: Coffee, Energy Drinks, Soda Caffeine Use Comment: once per week - Alcohol Use Alcohol Use History: No - Recreational Drug Use Recreational Drug Use: No - Living Situation & Occupation Living situation: Reports: , with Spouse, with Family (1 son) Occupation: Unemployed H&P Review of Systems - Review of Systems: Review Of Systems: See Below General: Reports: No Symptoms Pulmonary: Reports: No Symptoms Cardiovascular: Reports: No Symptoms Gastrointestinal: Reports: Abdominal Pain (contractions) Genitourinary: Reports: No Symptoms Musculoskeletal: Reports: No Symptoms Psychiatric: Reports: No Symptoms Neurological: Reports: No Symptoms L&D Exam - Exam Exam: See Below - Vital Signs Vital Signs: Last Vital Signs Temp 36.8 C 03/09/18 17:30 Pulse 97 03/09/18 17:30 Resp 16 03/09/18 17:30 BP 110/64 03/09/18 17:30 Pulse Ox Weight: 93.44 kg - OB Specific Contraction Intensity: Moderate Movement: Active Heart Tones: Present Heart Tones per Min: 135 Heart Rate (FHR) Variability: Moderate (6-25 bmp) Presentation: Vertex - Velázquez Score Velázquez Score Cervix Position: Posterior Velázquez Score Consistency: Soft Velázquez Score Effacement: >80% Velázquez Score Dilation: > 5 cm Velázquez Score 's Station: -1 ,0 Velázquez Score Total: 10 - Exam General: Alert, Oriented, Cooperative Lungs: Clear to Auscultation, Normal Respiratory Effort Cardiovascular: Regular Rate, Regular Rhythm GI/Abdominal Exam: Soft, Non-Tender Genitourinary: Normal external exam Extremities: Normal Inspection Skin: Warm, Dry, Intact - Problem List (1) 37 weeks gestation of SNOMED Code(s): 54171715 ICD Code: Z3A.37 - 37 WEEKS GESTATION OF Status: Acute Current Visit: Yes (2) Pyelectasis of fetus on ultrasound SNOMED Code(s): 122493230 ICD Code: O35.8XX0 - MATERNAL CARE FOR OTH ABNORMALITY AND DAMAGE, UNSP Status: Acute Current Visit: Yes (3) Heterozygous factor V Leiden affecting in third trimester, antepartum SNOMED Code(s): 900785682 ICD Code: O99.113 - OTH DIS OF BLD/BLD-FORM ORG/IMMUN MECHNSM COMP PREG, 3RD TRI; D68.51 - ACTIVATED PROTEIN C RESISTANCE Status: Acute Current Visit: No (4) Hypothyroid SNOMED Code(s): 65052464 ICD Code: E03.9 - HYPOTHYROIDISM, UNSPECIFIED Status: Acute Current Visit : No Qualifiers: Hypothyroidism type: acquired Qualified Code(s): E03.9 - Hypothyroidism, unspecified Problem List Initiated/Reviewed/Updated: Yes Orders Last 24hrs: Active Orders 24 hr Category Date Time Status Patient Status [ADT] Routine ADT 03/09/18 17:00 Active Activity as Tolerated [RC] PFP Care 03/09/18 19:24 Ordered Communication Order [RC] ASDIRECTED Care 03/09/18 19:24 Ordered Heart Tones [RC] ASDIRECTED Care 03/09/18 19:24 Ordered Non Stress Test [RC] PER UNIT ROUTINE Care 03/09/18 18:28 Active Non Stress Test [RC] PER UNIT ROUTINE Care 03/09/18 19:24 Ordered Notify Provider [RC] PFP Care 03/09/18 19:24 Ordered Notify Provider [RC] PRN Care 03/09/18 19:24 Ordered Peripheral IV Care [RC] . DIRECTED Care 03/09/18 19:24 Ordered Up ad Marcelina [RC] ASDIRECTED Care 03/09/18 18:29 Active Vital Signs [RC] PER UNIT ROUTINE Care 03/09/18 18:28 Active Vital Signs [RC] PER UNIT ROUTINE Care 03/09/18 19:24 Ordered Regular Diet [DIET] Diet 03/09/18 Dinner Active CBC W/O DIFF,HEMOGRAM [HEME] Routine Lab 03/09/18 19:24 Ordered RAPID PLASMA REAGIN,RPR [CHEM] Routine Lab 03/09/18 19:24 Ordered TYPE AND SCREEN [BBK] Routine Lab 03/09/18 19:24 Ordered Lactated Ringers [Ringers, Lactated] 1,000 ml Med 03/09/18 19:30 Ordered IV ASDIRECTED Nalbuphine [Nubain] Med 03/09/18 19:24 Ordered 10 mg IVPUSH Q2H PRN Ondansetron [Zofran] Med 03/09/18 19:24 Ordered 4 mg IVPUSH Q4H PRN Oxytocin/Lactated Ringers [Pitocin in LR 10 Units/1,000 Med 03/09/18 19:30 Ordered ML] 10 unit in 1,000 ml IV .CONTINUOUS Sodium Chloride 0.9% [Saline Flush] Med 03/09/18 19:24 Ordered 10 ml FLUSH ASDIRECTED PRN Electronic Heart Tones Ext w TOCO [WOMSER] Oth 03/09/18 19:24 Ordered Routine Electronic Heart Tones Internal [WOMSER] Per Unit Oth 03/09/18 19:24 Ordered Routine Peripheral IV Insertion Adult [OM.PC] Routine Oth 03/09/18 19:24 Ordered Resuscitation Status Routine Resus Stat 03/09/18 18:28 Ordered Assessment/Plan Comment:: 23 y/o at 37 5/7 wks who presents in labor * Labs on admission * GBS negative, no need for antibiotics * Pain management per patient preference * Anticipate * Patient is heterozygote for Factor V Leiden. Will consider anti- coagulation depending upon circumstances of delivery * * Will notify peds team of pyelectasis and recommendations for post delivery ultrasound around day 2-7 of life * * Continue home Zoloft and Synthroid
[2018-03-09] MEDS ORDERED: Oxytocin/Lactated Ringers 10 UNIT/1,000 ML BAG IV SCH (19:30)
[2018-03-09] MEDS ORDERED: fentaNYL 100 MCG/2 ML SDV EPIDUR PRN (20:17)
[2018-03-09] MEDS ORDERED: diphenhydrAMINE 50 MG/ML SDV IVPUSH PRN (20:17)
[2018-03-09] MEDS: Lactated Ringers 1,000 ML IV SCH ×3 (20:25→22:14)
[2018-03-09] MEDS ORDERED: Bupivacaine/fentaNYL/NS 100 ML Bag EPIDUR SCH (20:30)
--- NOTE | 2018-03-09 20:38 | PCM.PREANE ---
Preanesthetic Assessment - Anesthesia/Transfusion/Family Hx Anesthesia History: Prior Anesthesia Without Reaction Family History of Anesthesia Reaction: No Transfusion History: No Prior Transfusion(s) Intubation History: Unknown - Review of Systems General: No Symptoms Pulmonary: Other (Asthma, exercise and cigarette smoke induced. No recent use of her inhaler.) Cardiovascular: No Symptoms Gastrointestinal: No Symptoms Neurological: Headache (Migraines) Other: Reports: None (Factor V leiden), Thyroid Problems, Depression, Anxiety - Physical Assessment O2 Sat by Pulse Oximetry: 98 Respiratory Rate: 16 Vital Signs: Last Vital Signs Temp 36.8 C 03/09/18 17:30 Pulse 97 03/09/18 17:30 Resp 16 03/09/18 17:30 BP 110/64 03/09/18 17:30 Pulse Ox Height: 1.63 m Weight: 93.44 kg ASA Class: 2 Mental Status: Alert & Oriented x3 Airway Class: Mallampati = 2 Dentition: Reports: Normal Dentition Thyro-Mental Finger Breadths: 2 Mouth Opening Finger Breadths: 2 ROM/Head Extension: Full Lungs: Clear to Auscultation, Normal Respiratory Effort Cardiovascular: Regular Rate, Regular Rhythm - Allergies Allergies/Adverse Reactions: Allergies Allergy/AdvReac Type Severity Reaction Status Date / Time red dye AdvReac Headache Verified 08/31/17 16:45 cigarette smoke Allergy Bronchospas Uncoded 08/31/17 16:45 ms mosquitos Allergy Rash Uncoded 08/31/17 16:45 red dye 40 AdvReac Headache Uncoded 08/31/17 16:45 - Acknowledgements Anesthesia Type Planned: Epidural Pt an Appropriate Candidate for the Planned Anesthesia: Yes Alternatives and Risks of Anesthesia Discussed w Pt/Guardian: Yes Pt/Guardian Understands and Agrees with Anesthesia Plan: Yes PreAnesthesia Questionnaire Respiratory History: Reports: Asthma Other Respiratory History: exercise induced, states her throat closes around smoke 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 1 puff INH ASDIRECTED PRN 05/19/14 [History] Levothyroxine 75 mcg PO ACBREAKFAST 04/09/17 [History] - CURRENT (IN HOUSE) MEDS Current Meds: Current Medications Diphenhydramine HCl (Benadryl) 25 mg IVPUSH Q6H PRN PRN Reason: Pruritis Ephedrine Sulfate (Ephedrine Sulfate) 5 mg IVPUSH ASDIRECTED PRN PRN Reason: Hypotension Fentanyl (Sublimaze) 100 mcg EPIDUR ONETIME PRN PRN Reason: Pain Fentanyl/Bupivacaine HCl (Fentanyl/Bupivacaine/Ns 2 Mcg-0.125% 100 Ml) 100 ml EPIDUR ASDIRECTED [facility] Lactated Ringer's (Ringers, Lactated) 1,000 mls @ 100 mls/hr IV ASDIRECTED LUCAS Last Admin: 03/09/18 20:25 Dose: 100 mls/hr Oxytocin/Lactated Ringer's (Pitocin In Lr 10 Units/1,000 Ml) 10 unit in 1,000 mls @ 500 mls/hr IV .CONTINUOUS [facility] Nalbuphine HCl (Nubain) 10 mg IVPUSH Q2H PRN PRN Reason: pain Ondansetron HCl (Zofran) 4 mg IVPUSH Q4H PRN PRN Reason: Nausea/Vomiting Ondansetron HCl (Zofran) 4 mg IVPUSH ONETIME PRN PRN Reason: Nausea/Vomiting Sodium Chloride (Saline Flush) 10 ml FLUSH ASDIRECTED PRN PRN Reason: Keep Vein Open
[2018-03-09] MEDS ORDERED: fentaNYL/Bupivacaine-NS 2 MCG/ML-0.125%/PF 100 ML Bag EP PRN (21:15)
[2018-03-09] MEDS ORDERED: Bupivacaine 0.25% 10 ML SDV ONE (22:00)
[2018-03-09] MEDS ORDERED: Lidocaine 1.5% with EPINEPHrine 1:200,000 5 ML Amp ONE (22:00)
[2018-03-09] MEDS ORDERED: Acetaminophen 325 MG Tab PO PRN (23:44)
[2018-03-09] MEDS ORDERED: Oxytocin/Lactated Ringers 10 UNIT/1,000 ML BAG IV ONE (23:58)
[2018-03-10] MEDS: ePHEDrine 50 MG/ML SDV IVPUSH PRN ×7 (01:01→02:51)
[2018-03-10] MEDS: Sertraline 50 MG Tab PO SCH ×2 (01:09→21:53)
[2018-03-10] MEDS ORDERED: Oxytocin/Lactated Ringers 10 UNIT/1,000 ML BAG IV SCH (01:45)
--- NOTE | 2018-03-10 01:46 | PCM.PNLD ---
Labor Progress Note - VS & Meds Vital Signs: Last Vital Signs Temp 36.8 C 03/09/18 17:30 Pulse 97 03/09/18 17:30 Resp 16 03/09/18 20:38 BP 110/64 03/09/18 17:30 Pulse Ox 98 03/09/18 20:38 Active Medications: Current Medications Acetaminophen (Tylenol) 650 mg PO Q4H PRN PRN Reason: Headache Last Admin: 03/10/18 00:00 Dose: 650 mg Diphenhydramine HCl (Benadryl) 25 mg IVPUSH Q6H PRN PRN Reason: Pruritis Ephedrine Sulfate (Ephedrine Sulfate) 5 mg IVPUSH ASDIRECTED PRN PRN Reason: Hypotension Last Admin: 03/10/18 01:07 Dose: 5 mg Fentanyl (Sublimaze) 100 mcg EPIDUR ONETIME PRN PRN Reason: Pain Last Admin: 03/09/18 21:28 Dose: 100 mcg Fentanyl/Bupivacaine HCl (Xrmrjsod-Fgljd-Fx 2 Mcg/Ml-0.125%) 100 ml EP ASDIRECTED PRN PRN Reason: PAIN Last Admin: 03/09/18 21:29 Dose: 100 ml Lactated Ringer's (Ringers, Lactated) 1,000 mls @ 100 mls/hr IV ASDIRECTED LUCAS Last Admin: 03/09/18 22:14 Dose: 100 mls/hr Oxytocin/Lactated Ringer's (Pitocin In Lr 10 Units/1,000 Ml) 10 unit in 1,000 mls @ 500 mls/hr IV .CONTINUOUS LUCAS Oxytocin/Lactated Ringer's (Pitocin In Lr 10 Units/1,000 Ml) 10 unit in 1,000 mls @ 12 mls/hr IV TITRATE LUCAS; Protocol Levothyroxine Sodium (Levothyroxine) 75 mcg PO ACBREAKFAST LUCAS Nalbuphine HCl (Nubain) 10 mg IVPUSH Q2H PRN PRN Reason: pain Ondansetron HCl (Zofran) 4 mg IVPUSH Q4H PRN PRN Reason: Nausea/Vomiting Ondansetron HCl (Zofran) 4 mg IVPUSH ONETIME PRN PRN Reason: Nausea/Vomiting Sertraline HCl (Zoloft) 50 mg PO BEDTIME LUCAS Last Admin: 03/10/18 01:09 Dose: Not Given Sodium Chloride (Saline Flush) 10 ml FLUSH ASDIRECTED PRN PRN Reason: Keep Vein Open Discontinued Medications Fentanyl/Bupivacaine HCl (Fentanyl/Bupivacaine/Ns 2 Mcg-0.125% 100 Ml) 100 ml EPIDUR ASDIRECTED LUCAS Oxytocin/Lactated Ringer's (Pitocin In Lr 10 Units/1,000 Ml) Confirm Administered Dose 10 unit in 1,000 mls @ as directed IV .STK-MED ONE Stop: 03/09/18 23:59 Last Admin: 03/10/18 01:39 Dose: Not Given - Uterine Contractions Uterine Monitoring Mode: External [place] Contraction Intensity: Moderate to Strong - Monitoring Monitor Mode: External Ultrasound Heart Rate (FHR) Baseline: 135 Heart Rate (FHR) Variability: Moderate (6-25 bmp) Accelerations: Present, 15x15 Decelerations: None - Vaginal Exam Dilation (cm): 7-8 Effacement (Percent): 80 Station: -1 Cervical Position: Midposition - Labor Progress (Free Text) Labor Progress: After patient received her epidural contractions began to space. Pitocin started around 1230. AROM just performed with release of clear fluid. Continue present management
[2018-03-10] MEDS: Lactated Ringers 1,000 ML IV SCH (02:49)
[2018-03-10] MEDS ORDERED: Misoprostol 200 MCG Tab ONE (03:51)
--- NOTE | 2018-03-10 04:18 | PCM.DEL ---
L & D Note - General Info Date of Service: 03/10/18 - Delivery Note Labor: Augmented by ARM Delivery Outcome: Livebirth Delivery Method: Spontaneous Vaginal Delivery-Single Infant Delivery Mode: Spontaneous Presentation: Right Occiput Anterior (JENNY) Nuchal Cord: None Anesthesia Type: Epidural Amniotic Fluid Description: Clear Episiotomy Type: None Laceration: None Placenta: Intact, Spontaneous Cord: 3 Vessels Estimated Blood Loss: 500 Resuscitation Needed: Yes : Bulb Syringe, Stimulated, Warmed, [place] Used, Warmer Used Post Delivery Events: Shoulder Dystocia Delivery Comments (Free Text/Narrative):: Patient found to be complete and began pushing. With two contractions head brought from an 0 station to delivery. Immediately after delivery of head the chin retracted back against the perineum. Gentle downward traction did not provide delivery of anterior shoulder. Patient placed in McRobert's and suprapubic applied which also did not lead to delivery of anterior shoulder. Hand then placed posteriorly and pressure placed on anterior shoulder. With this body/head did rotate and delivery quickly accomplished. Total length of dystocia was less than 30 seconds. Cord clamped and cut. Baby taken immediately to warmer for assessment. Cord blood obtained. Placenta allowed time to separate and expelled intact. Inspection of the perineum showed no laceration. Bleeding initially minimally. About 10 minutes after delivery called by nursing due to large clot/gush of bleeding. Instructed to given 600 mcg of buccal cytotec. By time I arrived back bleeding again scant. - General Info Date of Service: 03/10/18 - Patient Data Vitals - Most Recent: Last Vital Signs Temp 36.8 C 03/09/18 17:30 Pulse 97 03/09/18 17:30 Resp 16 03/09/18 20:38 BP 110/64 03/09/18 17:30 Pulse Ox 98 03/09/18 20:38 Weight - Most Recent: 93.44 kg Lab Results Last 24 Hours: Laboratory Results - last 24 hr 03/09/18 03/09/18 Range/Units 20:20 20:20 WBC 12.13 H (3.98-10.04) K/mm3 RBC 4.33 (3.98-5.22) M/mm3 Hgb 11.8 (11.2-15.7) gm/L Hct 35.5 (34.1-44.9) % MCV 82.0 (79.4-94.8) fl MCH 27.3 (25.6-32.2) pg MCHC 33.2 (32.2-35.5) g/dl RDW Std Deviation 39.0 (36.4-46.3) fL Plt Count 297 (182-369) K/mm3 MPV 9.8 (9.4-12.3) fl Blood Type AB POSITIVE Gel Antibody Screen Negative Med Orders - Current: Current Medications Acetaminophen (Tylenol) 650 mg PO Q4H PRN PRN Reason: Headache Last Admin: 03/10/18 00:00 Dose: 650 mg Diphenhydramine HCl (Benadryl) 25 mg IVPUSH Q6H PRN PRN Reason: Pruritis Ephedrine Sulfate (Ephedrine Sulfate) 5 mg IVPUSH ASDIRECTED PRN PRN Reason: Hypotension Last Admin: 03/10/18 02:51 Dose: 5 mg Fentanyl (Sublimaze) 100 mcg EPIDUR ONETIME PRN PRN Reason: Pain Last Admin: 03/09/18 21:28 Dose: 100 mcg Fentanyl/Bupivacaine HCl (Rllcaycu-Mfsxi-Jz 2 Mcg/Ml-0.125%) 100 ml EP ASDIRECTED PRN PRN Reason: PAIN Last Admin: 03/09/18 21:29 Dose: 100 ml Lactated Ringer's (Ringers, Lactated) 1,000 mls @ 100 mls/hr IV ASDIRECTED [facility]UC[facility] Last Admin: 03/10/18 02:49 Dose: 100 mls/hr Oxytocin/Lactated Ringer's (Pitocin In Lr 10 Units/1,000 Ml) 10 unit in 1,000 mls @ 500 mls/hr IV .CONTINUOUS [facility] Oxytocin/Lactated Ringer's (Pitocin In Lr 10 Units/1,000 Ml) 10 unit in 1,000 mls @ 12 mls/hr IV TITRATE LUC[facility]; Protocol Last Titration: 03/10/18 02:49 Dose: 8 munits/min, 48 mls/hr Levothyroxine Sodium (Levothyroxine) 75 mcg PO ACBREAKFAST [facility] Nalbuphine HCl (Nubain) 10 mg IVPUSH Q2H PRN PRN Reason: pain Ondansetron HCl (Zofran) 4 mg IVPUSH Q4H PRN PRN Reason: Nausea/Vomiting Ondansetron HCl (Zofran) 4 mg IVPUSH ONETIME PRN PRN Reason: Nausea/Vomiting Sertraline HCl (Zoloft) 50 mg PO BEDTIME [facility] Last Admin: 03/10/18 01:09 Dose: Not Given Sodium Chloride (Saline Flush) 10 ml FLUSH ASDIRECTED PRN PRN Reason: Keep Vein Open Discontinued Medications Fentanyl/Bupivacaine HCl (Fentanyl/Bupivacaine/Ns 2 Mcg-0.125% 100 Ml) 100 ml EPIDUR ASDIRECTED [facility] Oxytocin/Lactated Ringer's (Pitocin In Lr 10 Units/1,000 Ml) Confirm Administered Dose 10 unit in 1,000 mls @ as directed IV .[facility] ONE Stop: 03/09/18 23:59 Last Admin: 03/10/18 01:39 Dose: Not Given Misoprostol (Cytotec) Confirm Administered Dose 600 mcg .ROUTE .STK-MED ONE Stop: 03/10/18 03:52 - Problem List & Annotations (1) 37 weeks gestation of SNOMED Code(s): 82918794 Code(s): Z3A.37 - 37 WEEKS GESTATION OF Status: Acute Current Visit: Yes (2) Pyelectasis of fetus on ultrasound SNOMED Code(s): 599873385 Code(s): O35.8XX0 - MATERNAL CARE FOR OTH ABNORMALITY AND DAMAGE, UNSP Status: Acute Current Visit: Yes (3) Heterozygous factor V Leiden affecting in third trimester, antepartum SNOMED Code(s): 909015696 Code(s): O99.113 - OTH DIS OF BLD/BLD-FORM ORG/IMMUN MECHNSM COMP PREG, 3RD TRI; D68.51 - ACTIVATED PROTEIN C RESISTANCE Status: Acute Current Visit: No (4) Hypothyroid SNOMED Code(s): 06880592 Code(s): E03.9 - HYPOTHYROIDISM, UNSPECIFIED Status: Acute Current Visit : No Qualifiers: Hypothyroidism type: acquired Qualified Code(s): E03.9 - Hypothyroidism, unspecified (5) Shoulder dystocia during labor and delivery, delivered SNOMED Code(s): 538073175, 209763203 Code(s): O66.0 - OBSTRUCTED LABOR DUE TO SHOULDER DYSTOCIA Status: Acute Current Visit: Yes (6) Vaginal delivery SNOMED Code(s): 341930236 Code(s): O80 - ENCOUNTER FOR FULL-TERM UNCOMPLICATED DELIVERY Status: Acute Current Visit: No - Problem List Review Problem List Initiated/Reviewed/Updated: Yes - My Orders Last 24 Hours: My Active Orders 03/09/18 18:28 Vital Signs [RC] 21,03,09,15 Resuscitation Status Routine 03/09/18 18:29 Up ad Marcelina [RC] ASDIRECTED 03/09/18 19:24 Patient Status [ADT] Routine Activity as Tolerated [RC] PFP Communication Order [RC] ASDIRECTED Notify Provider [RC] PFP Notify Provider [RC] PRN Peripheral IV Care [RC] Q2HR Nalbuphine [Nubain] 10 mg IVPUSH Q2H PRN Ondansetron [Zofran] 4 mg IVPUSH Q4H PRN Sodium Chloride 0.9% [Saline Flush] 10 ml FLUSH ASDIRECTED PRN Electronic Heart Tones Ext w TOCO [WOMSER] Routine Electronic Heart Tones Internal [WOMSER] Per Unit Routine Peripheral IV Insertion Adult [OM.PC] Routine 03/09/18 19:30 Lactated Ringers [Ringers, Lactated] 1,000 ml IV ASDIRECTED Oxytocin/Lactated Ringers [Pitocin in LR 10 Units/1,000 ML] 10 unit in 1,000 ml IV .CONTINUOUS 03/09/18 20:20 RAPID PLASMA REAGIN,RPR [CHEM] Routine 03/09/18 21:00 Sertraline [Zoloft] 50 mg PO BEDTIME 03/09/18 23:44 Acetaminophen [Tylenol] 650 mg PO Q4H PRN 03/09/18 Dinner Regular Diet [DIET] 03/10/18 01:45 Oxytocin/Lactated Ringers [Pitocin in LR 10 Units/1,000 ML] 10 unit in 1,000 ml IV TITRATE 03/10/18 04:14 Patient Status Manage Transfer [TRANSFER] Routine 03/10/18 06:00 Levothyroxine 75 mcg PO ACBREAKFAST - Assessment Assessment:: 23 y/o G4 now P2022 PPD#0 from at 37 6/7 wks - Plan Plan:: * Routine cares * Encourage breast feeding * Discharge home in 1-2 days * * Patient is heterozygote for Factor V Leiden with no personal history of clot. Delivery uncomplicated. At this time will continue to monitor without anticoagulation * * Peds team to be notified of pyelectasis and recommendations for post delivery ultrasound around day 2-7 of life * * Continue home Zoloft and Synthroid
[2018-03-10] MEDS ORDERED: Witch Hazel Medicated Pads 100/Jar TOP PRN (05:02)
[2018-03-10] MEDS ORDERED: Benzocaine/Menthol 20%-0.5% Spray 56 GM Canister TOP PRN (05:02)
[2018-03-10] MEDS ORDERED: Lanolin 100% Cream 7 GM Tube TOP PRN (05:02)
[2018-03-10] MEDS ORDERED: Acetaminophen 325 MG Tab PO PRN (05:02)
[2018-03-10] MEDS ORDERED: Docusate Sodium 100 MG Cap PO PRN (05:02)
[2018-03-10] MEDS: Ibuprofen 600 MG Tab PO PRN ×2 (05:51→18:20)
[2018-03-10] MEDS: Levothyroxine 75 MCG Tab PO SCH (05:51)
--- NOTE | 2018-03-10 09:39 | PCM48HPAN ---
Post Anesthesia Note - EVALUATION WITHIN 48HRS OF ANESTHETIC Vital Signs in Normal Range: Yes Patient Participated in Evaluation: Yes Respiratory Function Stable: Yes Airway Patent: Yes Cardiovascular Function Stable: Yes Hydration Status Stable: Yes Pain Control Satisfactory: Yes Nausea and Vomiting Control Satisfactory: Yes Mental Status Recovered: Yes - COMMENTS/OBSERVATIONS Free Text/Narrative:: Patient denies any symptoms of PDPH, back pain, and any residual numbness or tingling to LE. Doing well, resting in bed.
[2018-03-11] MEDS: Levothyroxine 75 MCG Tab PO SCH (08:01)
--- NOTE | 2018-03-11 08:27 | PCM.PNPP ---
- General Info Date of Service: 03/11/18 Functional Status: Reports: Pain Controlled, Tolerating Diet, Ambulating, Urinating - Review of Systems General: Reports: No Symptoms Pulmonary: Reports: No Symptoms Cardiovascular: Reports: No Symptoms Gastrointestinal: Reports: No Symptoms Genitourinary: Reports: No Symptoms Musculoskeletal: Reports: No Symptoms Neurological: Reports: No Symptoms - Patient Data Vital Signs - Most Recent: Last Vital Signs Temp 36.7 C 03/11/18 03:00 Pulse 55 L 03/11/18 04:50 Resp 16 03/11/18 04:50 BP 123/59 L 03/11/18 04:50 Pulse Ox 99 03/11/18 04:50 Weight - Most Recent: 93.44 kg Lab Results - Last 24 Hours: Laboratory Results - last 24 hr 03/09/18 Range/Units 20:20 RPR Non-reactive (NONREACTIVE) Med Orders - Current: Current Medications Acetaminophen (Tylenol) 650 mg PO Q4H PRN PRN Reason: mild pain or fever Last Admin: 03/10/18 07:20 Dose: 650 mg Benzocaine/Menthol (Dermoplast Pain Relief [place]) 0 gm TOP ASDIRECTED PRN PRN Reason: Perineal Comfort Measure Last Admin: 03/10/18 05:51 Dose: 1 canister Docusate Sodium (Colace) 100 mg PO BID PRN PRN Reason: Constipation Emollient Ointment (Lansinoh Hpa) 0 gm TOP ASDIRECTED PRN PRN Reason: Sore Nipples Ibuprofen (Motrin) 600 mg PO Q6H PRN PRN Reason: Mild pain or fever Last Admin: 03/10/18 18:20 Dose: 600 mg Levothyroxine Sodium (Levothyroxine) 75 mcg PO ACBREAKFAST [facility] Last Admin: 03/11/18 08:01 Dose: 75 mcg Sertraline HCl (Zoloft) 50 mg PO BEDTIME [facility] Last Admin: 03/10/18 21:53 Dose: 50 mg Witch Karis (Tucks) 1 pad TOP ASDIRECTED PRN PRN Reason: Hemorrhoid pain Last Admin: 03/10/18 05:51 Dose: 1 applic Discontinued Medications Acetaminophen (Tylenol) 650 mg PO Q4H PRN PRN Reason: Headache Last Admin: 03/10/18 00:00 Dose: 650 mg Bupivacaine HCl (Sensorcaine-Mpf 0.25%) 10 ml .ROUTE .STK-MED ONE Stop: 03/09/18 22:01 Diphenhydramine HCl (Benadryl) 25 mg IVPUSH Q6H PRN PRN Reason: Pruritis Ephedrine Sulfate (Ephedrine Sulfate) 5 mg IVPUSH ASDIRECTED PRN PRN Reason: Hypotension Last Admin: 03/10/18 02:51 Dose: 5 mg Fentanyl (Sublimaze) 100 mcg EPIDUR ONETIME PRN PRN Reason: Pain Last Admin: 03/09/18 21:28 Dose: 100 mcg Fentanyl/Bupivacaine HCl (Fentanyl/Bupivacaine/Ns 2 Mcg-0.125% 100 Ml) 100 ml EPIDUR ASDIRECTED [facility]UCAS Fentanyl/Bupivacaine HCl (Kzvqvtmp-Xvcbt-Ba 2 Mcg/Ml-0.125%) 100 ml EP ASDIRECTED PRN PRN Reason: PAIN Last Admin: 03/09/18 21:29 Dose: 100 ml Lactated Ringer's (Ringers, Lactated) 1,000 mls @ 100 mls/hr IV ASDIRECTED LUCAS Last Admin: 03/10/18 02:49 Dose: 100 mls/hr Oxytocin/Lactated Ringer's (Pitocin In Lr 10 Units/1,000 Ml) 10 unit in 1,000 mls @ 500 mls/hr IV .CONTINUOUS [facility] Oxytocin/Lactated Ringer's (Pitocin In Lr 10 Units/1,000 Ml) Confirm Administered Dose 10 unit in 1,000 mls @ as directed IV .STK-MED ONE Stop: 03/09/18 23:59 Last Admin: 03/10/18 01:39 Dose: Not Given Oxytocin/Lactated Ringer's (Pitocin In Lr 10 Units/1,000 Ml) 10 unit in 1,000 mls @ 12 mls/hr IV TITRATE [facility]; Protocol Last Titration: 03/10/18 02:49 Dose: 8 munits/min, 48 mls/hr Lidocaine/Epinephrine (Xylocaine-Mpf 1.5% W/Epinephrine 1:200,000) 5 ml .ROUTE .STK-MED ONE Stop: 03/09/18 22:01 Misoprostol (Cytotec) Confirm Administered Dose 600 mcg .ROUTE .STK-MED ONE Stop: 03/10/18 03:52 Last Admin: 03/10/18 03:35 Dose: 600 mcg Nalbuphine HCl (Nubain) 10 mg IVPUSH Q2H PRN PRN Reason: pain Ondansetron HCl (Zofran) 4 mg IVPUSH Q4H PRN PRN Reason: Nausea/Vomiting Ondansetron HCl (Zofran) 4 mg IVPUSH ONETIME PRN PRN Reason: Nausea/Vomiting Sodium Chloride (Saline Flush) 10 ml FLUSH ASDIRECTED PRN PRN Reason: Keep Vein Open - Interaction Infant Disposition, : [place] in Room with Family Interaction: Holding Infant Infant Feeding: Breastfed ; Nursed Well Support Person: - Recovery Exam Fundal Tone: Firm Fundal Level: 2 Fingerbreadths Below Umbilicus Fundal Placement: Midline Lochia Amount: Small Lochia Color: Rubra/Red Episiotomy/Laceration: None Bladder Status: Voiding Urinary Elimination: Voided - Exam General: Alert, Oriented, Cooperative GI/Abdominal Exam: Soft, Non-Tender Extremities: Normal Inspection Skin: Warm, Dry, Intact - Problem List & Annotations (1) 37 weeks gestation of SNOMED Code(s): 81722447 Code(s): Z3A.37 - 37 WEEKS GESTATION OF Status: Acute Current Visit: Yes (2) Pyelectasis of fetus on ultrasound SNOMED Code(s): 008492031 Code(s): O35.8XX0 - MATERNAL CARE FOR OTH ABNORMALITY AND DAMAGE, UNSP Status: Acute Current Visit: Yes (3) Heterozygous factor V Leiden affecting in third trimester, antepartum SNOMED Code(s): 509345005 Code(s): O99.113 - OTH DIS OF BLD/BLD-FORM ORG/IMMUN MECHNSM COMP PREG, 3RD TRI; D68.51 - ACTIVATED PROTEIN C RESISTANCE Status: Acute Current Visit: No (4) Hypothyroid SNOMED Code(s): 93114455 Code(s): E03.9 - HYPOTHYROIDISM, UNSPECIFIED Status: Acute Current Visit : No Qualifiers: Hypothyroidism type: acquired Qualified Code(s): E03.9 - Hypothyroidism, unspecified (5) Shoulder dystocia during labor and delivery, delivered SNOMED Code(s): 335152590, 538481203 Code(s): O66.0 - OBSTRUCTED LABOR DUE TO SHOULDER DYSTOCIA Status: Acute Current Visit: Yes (6) Vaginal delivery SNOMED Code(s): 195004704 Code(s): O80 - ENCOUNTER FOR FULL-TERM UNCOMPLICATED DELIVERY Status: Acute Current Visit: No - Problem List Review Problem List Initiated/Reviewed/Updated: Yes - My Orders Last 24 Hours: My Active Orders 03/11/18 05:02 Heat Therapy [OM.PC] PRN 03/11/18 08:26 Ready for Discharge [RC] PER UNIT ROUTINE - Assessment Assessment:: 23 y/o G4 now P2022 PPD#1 from at 37 6/7 wks - Plan Plan:: * Routine cares * Encourage breast feeding * Discharge home today per patient preference * * Patient is heterozygote for Factor V Leiden with no personal history of clot. Delivery uncomplicated. At this time will continue to monitor without anticoagulation * * Peds team to be notified of pyelectasis and recommendations for post delivery ultrasound around day 2-7 of life * * Continue home Zoloft and Synthroid
--- NOTE | 2018-03-11 08:28 | PCM.DCSUM1 ---
Discharge Summary - Discharge Data Discharge Date: 03/11/18 Discharge Disposition: Home, Self-Care 01 Condition: Good - Discharge Diagnosis/Problem(s) (1) 37 weeks gestation of SNOMED Code(s): 90449514 ICD Code: Z3A.37 - 37 WEEKS GESTATION OF Status: Acute Current Visit: Yes (2) Pyelectasis of fetus on ultrasound SNOMED Code(s): 494457177 ICD Code: O35.8XX0 - MATERNAL CARE FOR OTH ABNORMALITY AND DAMAGE, UNSP Status: Acute Current Visit: Yes (3) Heterozygous factor V Leiden affecting in third trimester, antepartum SNOMED Code(s): 759299908 ICD Code: O99.113 - OTH DIS OF BLD/BLD-FORM ORG/IMMUN MECHNSM COMP PREG, 3RD TRI; D68.51 - ACTIVATED PROTEIN C RESISTANCE Status: Acute Current Visit: No (4) Hypothyroid SNOMED Code(s): 47526625 ICD Code: E03.9 - HYPOTHYROIDISM, UNSPECIFIED Status: Acute Current Visit : No Qualifiers: Hypothyroidism type: acquired Qualified Code(s): E03.9 - Hypothyroidism, unspecified (5) Shoulder dystocia during labor and delivery, delivered SNOMED Code(s): 182457795, 822354346 ICD Code: O66.0 - OBSTRUCTED LABOR DUE TO SHOULDER DYSTOCIA Status: Acute Current Visit: Yes (6) Vaginal delivery SNOMED Code(s): 379390113 ICD Code: O80 - ENCOUNTER FOR FULL-TERM UNCOMPLICATED DELIVERY Status: Acute Current Visit: No - Patient Summary/Data Complications: None Consults: None Recommended Follow-up Testing/Procedures: Follow up in 3-6 weeks for check Hospital Course: 23 y/o at 37 5/7 wks who presented in labor. She progressed well. Vaginal delivery was notable for a shoulder dystocia. See delivery note for full details. she did well and was discharged home on PPD#1 per her preference. Given delivery uncomplicated for mom she was not started on prophylactic lovenox. She was advised to monitor for signs/symptoms of DVT and return of office if any concern. - Patient Instructions Diet: Regular Diet as Tolerated Activity: As Tolerated Activity, Other: Pelvic rest for 6 weeks Driving: May Drive Today Showering/Bathing: May Shower Showering/Bathing, Other: May bathe Notify Provider of: Fever, Increased Pain, Swelling and Redness, Drainage, Nausea and/or Vomiting - Discharge Plan *PRESCRIPTION DRUG MONITORING PROGRAM REVIEWED*: Not Applicable *COPY OF PRESCRIPTION DRUG MONITORING REPORT IN PATIENT ROE: Not Applicable Home Medications: Home Meds Albuterol Inhaler. 1 puff INH ASDIRECTED PRN 07/09/13 [History] Levothyroxine 75 mcg PO ACBREAKFAST 04/09/17 [History] Docusate Sodium [Colace] 100 mg PO BID PRN cap 03/10/18 [Rx] Ibuprofen [Motrin] 600 mg PO Q6H PRN tablet 03/10/18 [Rx] Sertraline [Zoloft] 50 mg PO BEDTIME tablet 03/10/18 [Rx] Referrals: Amina Mustafa MD [Primary Care Provider] - (3-6 weeks for check ) - Discharge Summary/Plan Comment DC Time >30 min.: No - Patient Data Vitals - Most Recent: Last Vital Signs Temp 36.7 C 03/11/18 03:00 Pulse 55 L 03/11/18 04:50 Resp 16 03/11/18 04:50 BP 123/59 L 03/11/18 04:50 Pulse Ox 99 03/11/18 04:50 Weight - Most Recent: 93.44 kg Lab Results - Last 24 hrs: Laboratory Results - last 24 hr 03/09/18 Range/Units 20:20 RPR Non-reactive (NONREACTIVE) Med Orders - Current: Current Medications Acetaminophen (Tylenol) 650 mg PO Q4H PRN PRN Reason: mild pain or fever Last Admin: 03/10/18 07:20 Dose: 650 mg Benzocaine/Menthol (Dermoplast Pain Relief [place]) 0 gm TOP ASDIRECTED PRN PRN Reason: Perineal Comfort Measure Last Admin: 03/10/18 05:51 Dose: 1 canister Docusate Sodium (Colace) 100 mg PO BID PRN PRN Reason: Constipation Emollient Ointment (Lansinoh Hpa) 0 gm TOP ASDIRECTED PRN PRN Reason: Sore Nipples Ibuprofen (Motrin) 600 mg PO Q6H PRN PRN Reason: Mild pain or fever Last Admin: 03/10/18 18:20 Dose: 600 mg Levothyroxine Sodium (Levothyroxine) 75 mcg PO ACBREAKFAST [facility] Last Admin: 03/11/18 08:01 Dose: 75 mcg Sertraline HCl (Zoloft) 50 mg PO BEDTIME [facility] Last Admin: 03/10/18 21:53 Dose: 50 mg Witch Karis (Tucks) 1 pad TOP ASDIRECTED PRN PRN Reason: Hemorrhoid pain Last Admin: 03/10/18 05:51 Dose: 1 applic Discontinued Medications Acetaminophen (Tylenol) 650 mg PO Q4H PRN PRN Reason: Headache Last Admin: 03/10/18 00:00 Dose: 650 mg Bupivacaine HCl (Sensorcaine-Mpf 0.25%) 10 ml .ROUTE .STK-MED ONE Stop: 03/09/18 22:01 Diphenhydramine HCl (Benadryl) 25 mg IVPUSH Q6H PRN PRN Reason: Pruritis Ephedrine Sulfate (Ephedrine Sulfate) 5 mg IVPUSH ASDIRECTED PRN PRN Reason: Hypotension Last Admin: 03/10/18 02:51 Dose: 5 mg Fentanyl (Sublimaze) 100 mcg EPIDUR ONETIME PRN PRN Reason: Pain Last Admin: 03/09/18 21:28 Dose: 100 mcg Fentanyl/Bupivacaine HCl (Fentanyl/Bupivacaine/Ns 2 Mcg-0.125% 100 Ml) 100 ml EPIDUR ASDIRECTED [facility] Fentanyl/Bupivacaine HCl (Dhcjvyfa-Jeacj-Ec 2 Mcg/Ml-0.125%) 100 ml EP ASDIRECTED PRN PRN Reason: PAIN Last Admin: 03/09/18 21:29 Dose: 100 ml Lactated Ringer's (Ringers, Lactated) 1,000 mls @ 100 mls/hr IV ASDIRECTED [facility] Last Admin: 03/10/18 02:49 Dose: 100 mls/hr Oxytocin/Lactated Ringer's (Pitocin In Lr 10 Units/1,000 Ml) 10 unit in 1,000 mls @ 500 mls/hr IV .CONTINUOUS [facility] Oxytocin/Lactated Ringer's (Pitocin In Lr 10 Units/1,000 Ml) Confirm Administered Dose 10 unit in 1,000 mls @ as directed IV .STK-MED ONE Stop: 03/09/18 23:59 Last Admin: 03/10/18 01:39 Dose: Not Given Oxytocin/Lactated Ringer's (Pitocin In Lr 10 Units/1,000 Ml) 10 unit in 1,000 mls @ 12 mls/hr IV TITRATE [facility]; Protocol Last Titration: 03/10/18 02:49 Dose: 8 munits/min, 48 mls/hr Lidocaine/Epinephrine (Xylocaine-Mpf 1.5% W/Epinephrine 1:200,000) 5 ml .ROUTE .[employer] ONE Stop: 03/09/18 22:01 Misoprostol (Cytotec) Confirm Administered Dose 600 mcg .ROUTE .[employer] ONE Stop: 03/10/18 03:52 Last Admin: 03/10/18 03:35 Dose: 600 mcg Nalbuphine HCl (Nubain) 10 mg IVPUSH Q2H PRN PRN Reason: pain Ondansetron HCl (Zofran) 4 mg IVPUSH Q4H PRN PRN Reason: Nausea/Vomiting Ondansetron HCl (Zofran) 4 mg IVPUSH ONETIME PRN PRN Reason: Nausea/Vomiting Sodium Chloride (Saline Flush) 10 ml FLUSH ASDIRECTED PRN PRN Reason: Keep Vein Open
[2018-03-11 15:26] VITALS: BP 106/77
== END 2018-03-11 15:00 | disposition home or self-care (01) | DRG 806 ==
LOC: JD.OB 16:54 → JD.OBCHECK 16:54 → JD.OB 19:24 → OBSVTOIN 03-10 03:35
PROVIDERS: ADMIT Obstetrics & Gynecology; ATTEND Obstetrics & Gynecology
PROC: 00HU33Z Insertion of Infusion Device into Spinal Canal, Percutaneous Approach (ICD-10-PCS; 2018-03-09)
PROC: 3E0R3BZ Introduction of Anesthetic Agent into Spinal Canal, Percutaneous Approach (ICD-10-PCS; 2018-03-09)
PROC: 10907ZC Drainage of Amniotic Fluid, Therapeutic from Products of Conception, Via Natural or Artificial Opening (ICD-10-PCS; principal; 2018-03-10)
PROC: 6A550ZT Pheresis of Cord Blood Stem Cells, Single (ICD-10-PCS; principal; 2018-03-10)
PROC: 10E0XZZ Delivery of Products of Conception, External Approach (ICD-10-PCS; principal; 2018-03-10)
DX: O99.12 Other diseases of the blood and blood-forming organs and certain disorders involving the immune mechanism complicating childbirth (principal); D68.51 Activated protein C resistance; Z37.0 Single live birth; O99.354 Diseases of the nervous system complicating childbirth; G43.909 Migraine, unspecified, not intractable, without status migrainosus; Z3A.37 37 weeks gestation of pregnancy; O69.81X0 Labor and delivery complicated by cord around neck, without compression, not applicable or unspecified; O66.0 Obstructed labor due to shoulder dystocia; O35.8XX0 Maternal care for other (suspected) fetal abnormality and damage, not applicable or unspecified; O99.284 Endocrine, nutritional and metabolic diseases complicating childbirth; E03.9 Hypothyroidism, unspecified; Z79.899 Other long term (current) drug therapy; Z91.048 Other nonmedicinal substance allergy status; O99.52 Diseases of the respiratory system complicating childbirth; J45.909 Unspecified asthma, uncomplicated; O99.214 Obesity complicating childbirth; E66.9 Obesity, unspecified; O99.344 Other mental disorders complicating childbirth; F32.9 Major depressive disorder, single episode, unspecified
CPT/HCPCS: 01967; 36415; 51702; 59025; 59409; 85027; 86592; 86850; 86900; 86901; A9270-GY; J2590; J3010; J3490; J7120

== ENCOUNTER 2018-05-20 19:18 | Emergency (ER) | payer OTHER ==
[2018-05-20] MEDS ORDERED: methylPREDNISolone Sodium Succinate 125 MG/2 ML SDV IVPUSH ONE (19:27)
[2018-05-20 19:31] VITALS: BP 135/90
[2018-05-20] MEDS: Albuterol/Ipratropium 3.0-0.5 MG/3 ML Neb Soln NEB PRN ×2 (19:34→20:31)
--- NOTE | 2018-05-20 19:54 | EDM.PDOC ---
ED HPI GENERAL MEDICAL PROBLEM - General Chief Complaint: Asthma Stated Complaint: SHORT OF BREATH Time Seen by Provider: 05/20/18 19:46 Source of Information: Reports: Patient History Limitations: Reports: Respiratory Distress - History of Present Illness INITIAL COMMENTS - FREE TEXT/NARRATIVE: 23 yo F comes in today with significant other respiratory distress. She is having a hard time breathing, is wheezing and cannot hold a conversation. Symptoms started yesterday, she c/o sore throat, runny nose, congestion, productive cough w/ greenish sputum, R ear pain. She denies F/C, N/V/D, abdominal pain She does have a history of asthma, was diagnosed 12 years ago, but states she has never had an episode like this before. She tried both albuterol and nebulizer at home without improvement. She denies any seasonal or environmental allergies. She denies smoking and states she's "allergic to the smoke". She does have 2 dogs at home, but has had them for 3.5 years without issue. She does have a sick contact at home with similar symptoms, her step mom , but was never diagnosed with anything. Currently she does not have a PCP, she was seeing Miriam Gill, would like to be referred to someone at [place]. Treatments CRISIS MENTAL HEALTH THERAPIST: Reports: Other (see below) Other Treatments CRISIS MENTAL HEALTH THERAPIST: inhaler and nebs Right Ear Pain Score (Numeric/FACES): 10 - Related Data Allergies Allergy/AdvReac Type Severity Reaction Status Date / Time red dye AdvReac Headache Verified 08/31/17 16:45 cigarette smoke Allergy Bronchospas Uncoded 08/31/17 16:45 ms mosquitos Allergy Rash Uncoded 08/31/17 16:45 red dye 40 AdvReac Headache Uncoded 08/31/17 16:45 Home Meds: Home Meds Levothyroxine 75 mcg PO ACBREAKFAST 04/09/17 [History] Ibuprofen [Motrin] 600 mg PO Q6H PRN tablet 03/10/18 [Rx] Sertraline [Zoloft] 50 mg PO BEDTIME tablet 03/10/18 [Rx] Albuterol Sulfate 1 applic INH ASDIRECTED 05/20/18 [History] Albuterol Sulfate [Albuterol Sulfate Hfa] 1 puff INH ASDIRECTED 05/20/18 [ History] predniSONE [Prednisone] 20 mg PO DAILY #4 tablet 05/20/18 [Rx] Past Medical History - Past Health History Medical/Surgical History: Denies Medical/Surgical History Cardiovascular History: Reports: Other (See Below) Respiratory History: Reports: Asthma Other Respiratory History: exercise induced 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: Reports: Polycystic Ovaries, , Spontaneous Neurological History: Reports: Migraines Psychiatric History: Reports: Depression Endocrine/Metabolic History: Reports: Hypothyroidism, Obesity/BMI 30+ Hematologic History: 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 Other Hematologic History: Factor V Leiden heterozygote - Past Surgical History HEENT Surgical History: Reports: Oral Surgery, Tonsillectomy Female Surgical History: Reports: D&C Musculoskeletal Surgical History: Reports: Arthroscopic Knee Social & Family History - Family History Family Medical History: Noncontributory - Tobacco Use Smoking Status *Q: Never Smoker - Caffeine Use Caffeine Use: Reports: Coffee, Energy Drinks, Soda Caffeine Use Comment: once per week - Recreational Drug Use Recreational Drug Use: No - Living Situation & Occupation Living situation: Reports: , with Spouse, with Family (1 son) Occupation: Unemployed ED ROS GENERAL - Review of Systems Review Of Systems: ROS reveals no pertinent complaints other than HPI. ED EXAM, GENERAL - Physical Exam Exam: See Below Exam Limited By: Respiratory Distress General Appearance: Alert, WD/WN, Moderate Distress Eye Exam: Bilateral Eye: EOMI, Normal Inspection, PERRL Throat/Mouth: Normal Inspection, Normal Lips, Normal Teeth, Normal Gums, Normal Oropharynx, Normal Voice, No Airway Compromise Neck: Normal Inspection, Supple, Non-Tender, Full Range of Motion Respiratory/Chest: Chest Non-Tender, Wheezing, Accessory Muscle Use Cardiovascular: Normal Peripheral Pulses, Regular Rate, Rhythm, No Edema, No Gallop, No JVD, No Murmur, No Rub GI/Abdominal: Normal Bowel Sounds, Soft, Non-Tender, No Organomegaly, No Distention, No Abnormal Bruit, No Mass Skin Exam: Warm, Dry, Intact, Normal Color, No Rash Course - Vital Signs Last Recorded V/S: Last Vital Signs Temp 98.2 F 05/20/18 19:29 Pulse 129 H 05/20/18 19:29 Resp 44 H 05/20/18 19:29 BP 135/90 05/20/18 19:29 Pulse Ox 98 05/20/18 21:35 - Orders/Labs/Meds Orders: Active Orders 24 hr Category Date Time Status RT Aerosol Therapy [RC] ASDIRECTED Care 05/20/18 19:27 Active RT Aerosol Therapy [RC] ASDIRECTED Care 05/20/18 21:23 Active CXR [Chest 2V] [CR] Stat Exams 05/20/18 20:47 Taken CULTURE STREP A CONFIRMATION [RM] Stat Lab 05/20/18 20:33 Results STREP SCRN A RAPID W CULT CONF [RM] Stat Lab 05/20/18 20:33 Results Albuterol/Ipratropium [DuoNeb 3.0-0.5 MG/3 ML] Med 05/20/18 20:19 Active 3 ml NEB QID PRN Medication Orders Albuterol/Ipratropium (Duoneb 3.0-0.5 Mg/3 Ml) 3 ml NEB QID PRN PRN Reason: Shortness of Breath Last Admin: 05/20/18 20:38 Dose: 3 ml Labs: Laboratory Tests 05/20/18 05/20/18 Range/Units 20:55 20:55 WBC 8.93 (3.98-10.04) K/mm3 RBC 5.02 (3.98-5.22) M/mm3 Hgb 13.7 (11.2-15.7) gm/L Hct 40.6 (34.1-44.9) % MCV 80.9 (79.4-94.8) fl MCH 27.3 (25.6-32.2) pg MCHC 33.7 (32.2-35.5) g/dl RDW Std Deviation 43.1 (36.4-46.3) fL Plt Count 250 (182-369) K/mm3 MPV 9.4 (9.4-12.3) fl Neut % (Auto) 77.5 H (34.0-71.1) % Lymph % (Auto) 15.2 L (19.3-51.7) % [place] % (Auto) 5.3 (4.7-12.5) % Eos % (Auto) 1.7 (0.7-5.8) Baso % (Auto) 0.2 (0.1-1.2) % Neut # (Auto) 6.92 H (1.56-6.13) K/mm3 Lymph # (Auto) 1.36 (1.18-3.74) K/mm3 [place] # (Auto) 0.47 H (0.24-0.36) K/mm3 Eos # (Auto) 0.15 (0.04-0.36) K/mm3 Baso # (Auto) 0.02 (0.01-0.08) K/mm3 Sodium 140 (136-145) mEq/L Potassium 2.9 L (3.5-5.1) mEq/L Chloride 107 (98-107) mEq/L Carbon Dioxide 19 L (21-32) mEq/L Anion Gap 16.9 H (5-15) BUN 16 (7-18) mg/dL Creatinine 1.1 H (0.55-1.02) mg/dL Est Cr Clr Drug Dosing 69.27 mL/min Estimated GFR (MDRD) > 60 (>60) mL/min BUN/Creatinine Ratio 14.5 (14-18) Glucose 172 H (74-106) mg/dL Calcium 8.4 L (8.5-10.1) mg/dL Total Bilirubin 0.6 (0.2-1.0) mg/dL AST 15 (15-37) U/L ALT 30 (14-59) U/L Alkaline Phosphatase 102 (46-116) U/L C-Reactive Protein 2.8 H* (<1.0) mg/dL Total Protein 7.0 (6.4-8.2) g/dl Albumin 3.6 (3.4-5.0) g/dl Globulin 3.4 gm/dL Albumin/Globulin Ratio 1.1 (1-2) Mycoplasma pneumon IgM Positive H (NEGATIVE) Meds: Medications Generic Name Dose Route Start Last Admin Trade Name Freq PRN Reason Stop Dose Admin Albuterol/Ipratropium 3 ml 05/20/18 20:19 05/20/18 20:38 Duoneb 3.0-0.5 Mg/3 Ml NEB 3 ml QID PRN Administration Shortness of Breath Discontinued Medications Generic Name Dose Route Start Last Admin Trade Name Freq PRN Reason Stop Dose Admin Albuterol 2.5 mg 05/20/18 20:38 Proventil Neb Soln NEB Q2H PRN Shortness Of Breath/wheezing Albuterol 2.5 mg 05/20/18 20:50 05/20/18 20:58 Proventil Neb Soln NEB 05/20/18 20:51 2.5 mg ONETIME ONE Administration Albuterol 2.5 mg 05/20/18 21:22 05/20/18 21:33 Proventil Neb Soln NEB 05/20/18 21:23 2.5 mg ONETIME ONE Administration Albuterol/Ipratropium 3 ml 05/20/18 19:27 05/20/18 20:31 Duoneb 3.0-0.5 Mg/3 Ml NEB 3 ml QID PRN Administration Shortness of Breath Methylprednisolone Sodium Succinate 125 mg 05/20/18 19:27 05/20/18 19:38 Solu-Medrol IVPUSH 05/20/18 19:28 125 mg ONETIME ONE Administration - Re-Assessments/Exams Free Text/Narrative Re-Assessment/Exam: 05/20/18 19:28 CBC, CMP, CRP, CXR, Influenza, Strep ordered, Mycoplasma Solumedrol 125 IV push and Duoneb treatment ordered 05/20/18 20:19 Little response to original Duoneb- will order another Duoneb treatment 05/20/18 20:53 Slight improvement, but still in distress- will order Albuterol nebulizer 05/20/18 21:23 Slight improvement- will order another Albuterol nebulizer CXR reviewed by myself and Dr. Ballesteros, nothing acute seen. Mycoplasma is positive, but CXR is negative, so likely not pneumonia. 05/20/18 22:00 Pt states she is feeling much better. She is no longer in respiratory distress, wheezing has improved and she is able to carry a conversation. She would like to go home. I will send her home with Prednisone for 4 days with close follow up with primary care provider. Departure - Departure Time of Disposition: 22:02 Disposition: Home, Self-Care 01 Condition: Good Clinical Impression: Asthma exacerbation, Viral URI with cough - Discharge Information *PRESCRIPTION DRUG MONITORING PROGRAM REVIEWED*: Not Applicable *COPY OF PRESCRIPTION DRUG MONITORING REPORT IN PATIENT ROE: Not Applicable Prescriptions: predniSONE [Prednisone] 20 mg PO DAILY #4 tablet Instructions: Cool Mist Vaporizer, Shortness of Breath, Adult, [id number], Viral Respiratory Infection, [id number], Upper Respiratory Infection, Adult, [id number], Asthma, Adult, [id number] Referrals: Dixie Savage MD [Physician] - Forms: ED Department Discharge Additional Instructions: You were seen in the ED today for asthma exacerbation likely due to viral upper respiratory infection. You received steroid treatment while here, as well as 4 nebulizing treatments with improvement. Your influenza and strep were negative. You were not found to have an ear infection, rather you have congestion causing irritation. At this time, it is recommended you continue using your inhaler and nebulizer at home as needed, and you will be sent home with prednisone 20mg for 4 days. Also recommend over the counter decongestant for your nasal congestion and ear pain. Recommend close follow up with a primary care provider within the week. You can call to set up an appointment with a primary care provider such as Dr. Dixie Hagen. Please return to ED if new or worsening symptoms. - My Orders Last 24 Hours: My Active Orders 05/20/18 19:27 RT Aerosol Therapy [RC] ASDIRECTED 05/20/18 20:19 Albuterol/Ipratropium [DuoNeb 3.0-0.5 MG/3 ML] 3 ml NEB QID PRN 05/20/18 20:33 CULTURE STREP A CONFIRMATION [RM] Stat STREP SCRN A RAPID W CULT CONF [RM] Stat 05/20/18 20:47 CXR [Chest 2V] [CR] Stat 05/20/18 21:23 RT Aerosol Therapy [RC] ASDIRECTED - Assessment/Plan Last 24 Hours: My Active Orders 05/20/18 19:27 RT Aerosol Therapy [RC] ASDIRECTED 05/20/18 20:19 Albuterol/Ipratropium [DuoNeb 3.0-0.5 MG/3 ML] 3 ml NEB QID PRN 05/20/18 20:33 CULTURE STREP A CONFIRMATION [RM] Stat STREP SCRN A RAPID W CULT CONF [RM] Stat 05/20/18 20:47 CXR [Chest 2V] [CR] Stat 05/20/18 21:23 RT Aerosol Therapy [RC] ASDIRECTED
[2018-05-20] MEDS ORDERED: Albuterol/Ipratropium 3.0-0.5 MG/3 ML Neb Soln NEB PRN (20:19)
[2018-05-20] MEDS ORDERED: Albuterol 0.083% 2.5 MG/3 ML Neb Soln NEB PRN (20:38)
[2018-05-20] MEDS ORDERED: Albuterol 0.083% 2.5 MG/3 ML Neb Soln NEB ONE ×2 (20:50→21:22)
--- NOTE | 2018-05-21 13:07 | CR ---
Chest: Two views of the chest were obtained. Comparison: Previous chest x-ray of 02/17/14. Heart size and mediastinum are normal. Lungs are clear. Bony structures are unremarkable. Impression: 1. Nothing acute is seen on two-view chest x-ray. Diagnostic code #1
== END 2018-05-20 22:23 | disposition home or self-care (01) ==
LOC: JD.ED 19:18
DX: J45.901 Unspecified asthma with (acute) exacerbation (principal); J06.9 Acute upper respiratory infection, unspecified; E66.9 Obesity, unspecified; Z91.041 Radiographic dye allergy status; Z91.048 Other nonmedicinal substance allergy status
CPT/HCPCS: 36415; 71046; 80053; 85025; 86140; 86738; 87081; 87430; 87804; 94640; 96374; 99285; J2930; 99284; J7620-GY

== ENCOUNTER 2018-07-12 12:35 | Emergency (ER) | payer OTHER ==
[2018-07-12 12:50] VITALS: BP 80/50
[2018-07-12] MEDS ORDERED: Metoclopramide 10 MG/2 ML SDV IVPUSH ONE (12:55)
[2018-07-12] MEDS ORDERED: diphenhydrAMINE 50 MG/ML SDV IVPUSH ONE (12:55)
[2018-07-12] MEDS ORDERED: Sodium Chloride 0.9% 1,000 ML IV ONE (12:55)
[2018-07-12] MEDS ORDERED: Ketorolac 30 MG/ML SDV IVPUSH ONE (12:55)
[2018-07-12] MEDS ORDERED: Sodium Chloride 0.9% 10 ML Syringe FLUSH PRN (12:55)
[2018-07-12] MEDS ORDERED: Orphenadrine 100 MG Tab.ER PO ONE (13:03)
--- NOTE | 2018-07-12 13:09 | EDM.PDOC ---
ED HPI GENERAL MEDICAL PROBLEM - General Chief Complaint: Back Pain or Injury Stated Complaint: BACK PAIN AND HEADACHE Time Seen by Provider: 07/12/18 12:54 Source of Information: Reports: Patient, RN Notes Reviewed History Limitations: Reports: No Limitations - History of Present Illness INITIAL COMMENTS - FREE TEXT/NARRATIVE: Patient is a 23-year-old female who presents to the ED for evaluation of back pain and a headache. The patient states that this pain has been present since Tuesday, and has been worsening since then. She states she has a history of migraine headaches, however this one is more intense than in times past. She states normally her migraines involve squeezing type pain around her head, but today she is noticed some sharp stabbing type pains directly behind her eyes and into her temples. She normally gets ringing in her ears with her migraine as well. She states that her back pain is similar to her back pain in the past , stabbing pain in nature. This does not radiate anywhere the patient notes that she does have a history of disc issues in her back. She has been taking 1000 mg of Tylenol every 6 hours as directed, and this is not been provided much relief. The patient also feels nauseated at this time. She denies any chance that she be . Her medications include Topamax daily for migraine prophylaxis, she does not have anything for abortive migraine measures at home. Her primary care provider is Enedelia Valiente. Her blood pressure at time of exam is 80/50, and 95/76. Treatments GANG RIDER: Reports: Other (see below) Other Treatments GANG RIDER: tylenol Middle Back Pain Score (Numeric/FACES): 9 Frontal Headache Pain Score (Numeric/FACES): 7 - Related Data Allergies Allergy/AdvReac Type Severity Reaction Status Date / Time red dye AdvReac Headache Verified 08/31/17 16:45 cigarette smoke Allergy Bronchospas Uncoded 08/31/17 16:45 ms mosquitos Allergy Rash Uncoded 08/31/17 16:45 red dye 40 AdvReac Headache Uncoded 08/31/17 16:45 Home Meds: Home Meds Levothyroxine 75 mcg PO ACBREAKFAST 04/09/17 [History] Albuterol Sulfate 1 applic INH ASDIRECTED 05/20/18 [History] Albuterol Sulfate [Albuterol Sulfate Hfa] 1 puff INH ASDIRECTED 05/20/18 [ History] Orphenadrine [Norflex] 100 mg PO BID PRN #20 tab 07/12/18 [Rx] Past Medical History - Past Health History Medical/Surgical History: Denies Medical/Surgical History Cardiovascular History: Reports: Other (See Below) Respiratory History: Reports: Asthma Other Respiratory History: exercise induced 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 LEAD History: Reports: Polycystic Ovaries, , Spontaneous Neurological History: Reports: Migraines Psychiatric History: Reports: Depression Endocrine/Metabolic History: Reports: Hypothyroidism, Obesity/BMI 30+ Hematologic History: 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 Other Hematologic History: Factor V Leiden heterozygote - Past Surgical History HEENT Surgical History: Reports: Oral Surgery, Tonsillectomy Female Surgical History: Reports: D&C Musculoskeletal Surgical History: Reports: Arthroscopic Knee Social & Family History - Family History Family Medical History: Noncontributory - Tobacco Use Smoking Status *Q: Never Smoker - Caffeine Use Caffeine Use: Reports: Coffee, Soda Caffeine Use Comment: once per week - Recreational Drug Use Recreational Drug Use: No - Living Situation & Occupation Living situation: Reports: , with Spouse, with Family (1 son) Occupation: Unemployed ED ROS GENERAL - Review of Systems Review Of Systems: See Below Constitutional: Reports: No Symptoms HEENT: Reports: No Symptoms Respiratory: Reports: No Symptoms Cardiovascular: Reports: No Symptoms Endocrine: Reports: No Symptoms GI/Abdominal: Reports: No Symptoms : Reports: No Symptoms Musculoskeletal: Reports: Back Pain (mid back pain with muscle spasms) Skin: Reports: No Symptoms Neurological: Reports: Headache Psychiatric: Reports: No Symptoms Hematologic/Lymphatic: Reports: No Symptoms ED EXAM,LOWER BACK PAIN/INJURY - Physical Exam Exam: See Below Exam Limited By: No Limitations General Appearance: Alert, WD/WN, No Apparent Distress (Patient is lying in a darkened room) Eye Exam: Bilateral Eye: EOMI, Normal Inspection, PERRL Ears: Normal External Exam, Normal TMs Nose: Normal Inspection Throat/Mouth: Normal Inspection, Normal Oropharynx Head: Atraumatic, Normocephalic Neck: Normal Inspection, Supple, Non-Tender, Full Range of Motion Respiratory/Chest: No Respiratory Distress, Lungs Clear, Normal Breath Sounds, No Accessory Muscle Use, Chest Non-Tender Cardiovascular: Normal Peripheral Pulses, Regular Rate, Rhythm, No Murmur GI/Abdominal: Normal Bowel Sounds, Soft, Non-Tender, No Distention, No Mass Back Exam: Normal Inspection, Muscle Spasm (mid back) Extremities: Normal Inspection, Normal Capillary Refill Neurological: Alert, Normal Mood/Affect, Normal Dorsiflexion, Normal Plantar Flexion, Normal Gait, Normal Reflexes, No Motor/Sensory Deficits, Oriented x 3 Psychiatric: Normal Affect, Normal Mood Skin Exam: Warm, Dry, Intact, Normal Color, No Rash Course - Vital Signs Last Recorded V/S: Last Vital Signs Temp 98.7 F 07/12/18 12:48 Pulse 87 07/12/18 12:48 Resp 20 07/12/18 12:48 BP 80/50 L 07/12/18 12:48 Pulse Ox 98 07/12/18 12:48 - Orders/Labs/Meds Orders: Active Orders 24 hr Category Date Time Status Peripheral IV Care [RC] . DIRECTED Care 07/12/18 12:55 Ordered Sodium Chloride 0.9% [Saline Flush] Med 07/12/18 12:55 Ordered 10 ml FLUSH ASDIRECTED PRN Peripheral IV Insertion Adult [OM.PC] Routine Oth 07/12/18 12:55 Ordered Medication Orders Sodium Chloride (Saline Flush) 10 ml FLUSH ASDIRECTED PRN PRN Reason: Keep Vein Open Last Admin: 07/12/18 13:46 Dose: 10 ml Meds: Medications Generic Name Dose Route Start Last Admin Trade Name Freq PRN Reason Stop Dose Admin Sodium Chloride 10 ml 07/12/18 12:55 07/12/18 13:46 Saline Flush FLUSH 10 ml ASDIRECTED PRN Administration Keep Vein Open Discontinued Medications Generic Name Dose Route Start Last Admin Trade Name Freq PRN Reason Stop Dose Admin Diphenhydramine HCl 25 mg 07/12/18 12:55 07/12/18 13:45 Benadryl IVPUSH 07/12/18 12:56 25 mg ONETIME ONE Administration Sodium Chloride 1,000 mls @ 999 mls/hr 07/12/18 12:55 07/12/18 13:46 Normal Saline IV 07/12/18 13:55 999 mls/hr ASDIRECTED ONE Administration Ketorolac Tromethamine 30 mg 07/12/18 12:55 07/12/18 13:45 Toradol IVPUSH 07/12/18 12:56 30 mg ONETIME ONE Administration Metoclopramide HCl 10 mg 07/12/18 12:55 07/12/18 13:45 Reglan IVPUSH 07/12/18 12:56 10 mg ONETIME ONE Administration Orphenadrine Citrate 100 mg 07/12/18 13:03 07/12/18 13:46 Norflex PO 07/12/18 13:04 100 mg BEDTIME ONE Administration - Re-Assessments/Exams Free Text/Narrative Re-Assessment/Exam: 07/12/18 13:09 History presents to the ED for back pain and a headache. I have ordered an IV bolus of fluids, 10 mg Reglan, 30 mg Toradol, 25 mg Benadryl, and 100 mg PO Norflex for initial management. 07/12/18 13:55 Patient's IV bolus has just been started, she is gotten a minimal amount of fluids at this time. She states however that the medications have helped and that she feels better than when she was initially assessed. I will let the IV fluids run in and reevaluate after the fluids are done. 07/12/18 14:35 Patient was reassessed and states she feels much better after the bolus of fluids and medications. We'll discharge her home with a prescription for Norflex and general recommendations. Departure - Departure Time of Disposition: 14:35 Disposition: Home, Self-Care 01 Condition: Fair Clinical Impression: Back pain Qualifiers: Back pain location: back pain in other location Chronicity: acute Qualified Code(s): M54.9 - Dorsalgia, unspecified Headache Qualifiers: Headache type: unspecified Headache chronicity pattern: acute headache Intractability: not intractable Qualified Code(s): R51 - Headache - Discharge Information *PRESCRIPTION DRUG MONITORING PROGRAM REVIEWED*: No *COPY OF PRESCRIPTION DRUG MONITORING REPORT IN PATIENT ROE: No Prescriptions: Orphenadrine [Norflex] 100 mg PO BID PRN #20 tab PRN Reason: Spasms Instructions: Back Injury Prevention, [id number], Migraine Headache, Easy-to- Read Referrals: Enedelia Valiente MD [Primary Care Provider] - Forms: ED Department Discharge Additional Instructions: You have been evaluated in the ED for your back pain and headache. Please use ice/heat as tolerated to the affected area. You may take tylenol 500 mg or ibuprofen 600mg q6 hrs for pain relief. Please do so until you have a tolerable level of pain with activity. Do not exceed 4000mg tylenol, Do not exceed 3200mg ibuprofen in a 24 hour time period. You have been provided with prescription for Norflex, a muscle relaxer, please take one tab 2 times daily for muscle spasms. [facility]. Please return to ED if your symptoms should change or worsen. - My Orders Last 24 Hours: My Active Orders 07/12/18 12:55 Peripheral IV Care [RC] . DIRECTED Sodium Chloride 0.9% [Saline Flush] 10 ml FLUSH ASDIRECTED PRN Peripheral IV Insertion Adult [OM.PC] Routine - Assessment/Plan Last 24 Hours: My Active Orders 07/12/18 12:55 Peripheral IV Care [RC] . DIRECTED Sodium Chloride 0.9% [Saline Flush] 10 ml FLUSH ASDIRECTED PRN Peripheral IV Insertion Adult [OM.PC] Routine
== END 2018-07-12 14:47 | disposition home or self-care (01) ==
LOC: JD.ED 12:35
DX: M54.9 Dorsalgia, unspecified (principal); R51 Headache; J45.909 Unspecified asthma, uncomplicated; Z91.02 Food additives allergy status; Z79.899 Other long term (current) drug therapy
CPT/HCPCS: 96361; 96374; 96375; 99283; A9270; J1200; J1885; J2765; J7040; 99284

== ENCOUNTER → 2018-11-23 | Day surgery (SDC) | payer OTHER ==
[~2018-11-23] MED LIST: Dexamethasone 4 MG/ML 5 ML MDV ONE; EPINEPHrine 1 MG/ML 30 ML MDV SCH; FLU Vacc QS2019-20(6MOS+)/PF 60 MCG/0.5 ML SYRINGE IM ONE; Ketorolac 30 MG/ML SDV ONE; Lactated Ringers 0 ML ONE; Lactated Ringers 1,000 ML IV SCH; Lidocaine 1% 0 ML ONE; Lidocaine 1%/Sod Bicarbonate in NS 8.4% 1 ML Syringe IDERM PRN; Midazolam 1 MG/ML 2 ML SDV ONE; Ondansetron 4 MG/2 ML SDV ONE; Propofol 200 MG/20 ML SDV ONE; Sodium Chloride 0.9% 10 ML Syringe FLUSH PRN; ceFAZolin 1 GM Vial ONE; fentaNYL 250 MCG/5 ML SDV ONE
[2018-11-23 12:24] VITALS: BP 123/87; PULSE 70
== END | disposition home or self-care (01) ==
LOC: JD.SDS 08:45
PROVIDERS: ATTEND Orthopaedic Surgery
DX: M25.311 Other instability, right shoulder (principal); Z53.8 Procedure and treatment not carried out for other reasons; Z23 Encounter for immunization
CPT/HCPCS: 81025; 82962; 87641; 90686; J0690; J1100; J1885; J2001; J2250; J2405; J2704; J3010; J7120

== ENCOUNTER 2018-12-14 06:25 | Day surgery (SDC) | payer OTHER ==
--- NOTE | 2018-12-13 10:50 | PCM.PREANE ---
Preanesthetic Assessment - Anesthesia/Transfusion/Family Hx Anesthesia History: Prior Anesthesia Without Reaction Family History of Anesthesia Reaction: No Transfusion History: No Prior Transfusion(s) Intubation History: Unknown - Review of Systems General: No Symptoms Pulmonary: No Symptoms (Asthma: Exercise induced-last used inhaler=3 years ago) Cardiovascular: No Symptoms Gastrointestinal: No Symptoms Neurological: No Symptoms (DDD in lower back) Other: Reports: None (History of Factor V leiden deficiency), Diabetes (AM blood sugar=86 @ 0650), Thyroid Problems (hypothyroid), Depression (PTSD-on Prazosin .), Anxiety - Physical Assessment NPO Status Date: 12/13/18 NPO Status Time: 22:00 Vital Signs: HR: 91 Sat: 97% BP:117/73 Resp: 16 Temp 97.7F Height: 1.63 m Weight: 108 kg ASA Class: 2 Mental Status: Alert & Oriented x3 Airway Class: Mallampati = 2 Dentition: Reports: Normal Dentition, Caries Thyro-Mental Finger Breadths: 3 Mouth Opening Finger Breadths: 3 ROM/Head Extension: Full Lungs: Clear to Auscultation, Normal Respiratory Effort Cardiovascular: Regular Rate, Regular Rhythm, No Murmurs - Lab Values: All labs reviewed and noted and within acceptable ranges to proceed with scheduled procedure. - Allergies Allergies/Adverse Reactions: Allergies Allergy/AdvReac Type Severity Reaction Status Date / Time cigarette smoke Allergy Bronchospas Verified 12/13/18 15:15 ms red dye AdvReac Headache Verified 12/13/18 15:15 mosquitos Allergy Rash Uncoded 12/13/18 15:15 - Anesthesia Plan Pre-Op Medication Ordered: None - Acknowledgements Anesthesia Type Planned: General Anesthesia (Right ISB with US guidance for post operative pain control requested by Dr. 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: Polycystic Ovaries, , Spontaneous Neurological History: Reports: Migraines, Other (See Below) Other Neuro History: thoracic degenerative disc disease Psychiatric History: Reports: Depression, PTSD Endocrine/Metabolic History: Reports: Hypothyroidism, Obesity/BMI 30+ Hematologic History: 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 Other Hematologic History: Factor V Leiden heterozygote Immunologic History: Reports: None Oncologic (Cancer) History: Reports: None Dermatologic History: Reports: None - Past Surgical History Head Surgeries/Procedures: Reports: None HEENT Surgical History: Reports: Adenoidectomy, Oral Surgery, Tonsillectomy Cardiovascular Surgical History: Reports: None Respiratory Surgical History: Reports: None GI Surgical History: Reports: None Female Surgical History: Reports: D&C Endocrine Surgical History: Reports: None Neurological Surgical History: Reports: None Musculoskeletal Surgical History: Reports: Arthroscopic Knee Oncologic Surgical History: Reports: None Dermatological Surgical History: Reports: None - HOME MEDS Home Medications: Home Meds Levothyroxine 75 mcg PO ACBREAKFAST 04/09/17 [History] Albuterol [Proventil HFA] 2 puff INH Q4H PRN 11/22/18 [History] Albuterol [Proventil] 1 dose NEB QID PRN 11/22/18 [History] Celecoxib 200 mg PO DAILY 11/22/18 [History] Desvenlafaxine [Desvenlafaxine ER] 50 mg PO DAILY 11/22/18 [History] Metoclopramide HCl 5 - 10 mg PO QID PRN 11/22/18 [History] Prazosin [Minpress] 3 mg PO BEDTIME 11/22/18 [History] Rizatriptan Benzoate [Rizatriptan] 5 mg PO ASDIRECTED PRN 11/22/18 [History] lamoTRIgine [Lamotrigine] 25 mg PO DAILY 11/22/18 [History] lamoTRIgine [Lamotrigine] 100 mg PO DAILY 11/22/18 [History] metFORMIN HCl [Metformin HCl ER] 500 mg PO DAILY 11/22/18 [History] traZODone HCl [Trazodone HCl] 50 mg PO BEDTIME 11/22/18 [History] Acetaminophen/HYDROcodone [[place] 325-5 MG] 1 - 2 tab PO Q6H PRN #40 tablet 12/14 [Rx] Aspirin 325 mg PO DAILY #40 tab 12/14/18 [Rx] - CURRENT (IN HOUSE) MEDS Current Meds: Current Medications Albuterol (Proventil Neb Soln) 2.5 mg NEB ONETIME PRN PRN Reason: bronchodilation Stop: 12/14/18 18:00 Lactated Ringer's (Ringers, Lactated) 1,000 mls @ 125 mls/hr IV ASDIRECTED LUCAS Stop: 12/14/18 23:00 Lidocaine/Sodium Bicarbonate (Buffered Lidocaine 1% In Ns 8.4%) 0.25 ml IDERM ONETIME PRN PRN Reason: Prior to IV Start Stop: 12/14/18 18:00 Sodium Chloride (Saline Flush) 10 ml FLUSH ASDIRECTED PRN PRN Reason: Keep Vein Open Stop: 12/14/18 18:00
[~2018-12-14 06:25] MED LIST changes: +Albuterol 0.083% 2.5 MG/3 ML Neb Soln NEB PRN; -Dexamethasone 4 MG/ML 5 ML MDV ONE; -EPINEPHrine 1 MG/ML 30 ML MDV SCH; -FLU Vacc QS2019-20(6MOS+)/PF 60 MCG/0.5 ML SYRINGE IM ONE; -Ketorolac 30 MG/ML SDV ONE; -Lactated Ringers 0 ML ONE; -Lactated Ringers 1,000 ML IV SCH; -Lidocaine 1% 0 ML ONE; -Midazolam 1 MG/ML 2 ML SDV ONE; -Ondansetron 4 MG/2 ML SDV ONE; -Propofol 200 MG/20 ML SDV ONE; -ceFAZolin 1 GM Vial ONE; -fentaNYL 250 MCG/5 ML SDV ONE
[2018-12-14] MEDS ORDERED: Lidocaine 1% 2 ML ONE (06:26)
[2018-12-14] MEDS ORDERED: EPINEPHrine 1 MG/ML SDV ONE (06:26)
[2018-12-14] MEDS ORDERED: Ropivacaine 0.5% 5 MG/ML 30 ML SDV ONE (06:26)
[2018-12-14] MEDS ORDERED: Dexamethasone 4 MG/ML 5 ML MDV ONE (06:46)
[2018-12-14] MEDS ORDERED: Ketorolac 30 MG/ML SDV ONE (06:46)
[2018-12-14] MEDS ORDERED: Rocuronium 50 MG/5 ML Vial ONE (06:46)
[2018-12-14] MEDS ORDERED: Lidocaine 1% 6 ML ONE (06:46)
[2018-12-14] MEDS ORDERED: Ondansetron 4 MG/2 ML SDV ONE (06:46)
[2018-12-14] MEDS ORDERED: ceFAZolin 1 GM Vial ONE (06:46)
[2018-12-14] MEDS ORDERED: Lactated Ringers 1,000 ML ONE (06:46)
[2018-12-14] MEDS ORDERED: Propofol 200 MG/20 ML SDV ONE (06:47)
[2018-12-14] MEDS ORDERED: Midazolam 1 MG/ML 2 ML SDV ONE (06:47)
[2018-12-14] MEDS ORDERED: fentaNYL 250 MCG/5 ML SDV ONE (06:47)
[2018-12-14] MEDS ORDERED: EPINEPHrine 1 MG/ML 30 ML MDV IVPUSH SCH (07:35)
[2018-12-14] MEDS ORDERED: EPINEPHrine 1 MG/ML 30 ML MDV SCH (07:37)
[2018-12-14] MEDS: Lactated Ringers 1,000 ML IV SCH ×2 (07:45→07:46)
--- NOTE | 2018-12-14 07:45 | PCM.SN ---
- Free Text/Narrative Note: Anesthesia Note: (Right Interscalene Block Note) Date: 12/14/2018 Time Out: 722 Start: 722 Stop: 732 Surgical Procedure: Right SVA with Bankart Repair Diagnosis Right shoulder Instability Current Procedure: Right interscalene block under US guidance for postoperative pain control requested by Dr. Mercedes. Patient chart reviewed, risk/benefits discussed with patient, consent obtained. Patient positioned supine, monitors/alarms on, oxygen placed via nasal cannula at 2 LPM. IV sedation administered: Versed 2mg IV, Fentanyl 100 mcg IV given in prior to block placement. Right shoulder prepped with two chloropreps. Sterile drapes placed with aseptic technique noted. Under US guidance, right subclavian artery visualized along with the right brachial plexus. Plexus followed up to C6 cricoid level, and area localized with 2mls of 1% lidocaine. 22gauge 2 inch stimiplex needle advanced under US with 0.6mV with stimulation of biceps noted. Good stimulation noted with decreased voltage and absent at 0.2mVs. 1ml of Normal Saline injected with loss of stimulation noted to confirm needle not placed intraneurally. Incremental dosing of 5mls with negative aspiration noted prior to each injection of 0.5% ropivacaine with 1:200,000 epinephrine. Total volume=30mls. Please refer to nurses noted for vital signs. Alexandra Juárez CRNA
[2018-12-14] MEDS ORDERED: Albuterol 6.7 GM Inhaler INH ONE (08:10)
[2018-12-14] MEDS ORDERED: diphenhydrAMINE 50 MG/ML SDV IVPUSH PRN (08:28)
[2018-12-14] MEDS ORDERED: Midazolam 1 MG/ML 2 ML SDV IVPUSH PRN (08:28)
[2018-12-14] MEDS ORDERED: HYDROmorphone 0.5 MG/0.5 ML Syringe IVPUSH PRN (08:28)
[2018-12-14] MEDS ORDERED: ePHEDrine 50 MG/ML SDV IVPUSH PRN (08:28)
[2018-12-14] MEDS ORDERED: fentaNYL 100 MCG/2 ML SDV IVPUSH PRN (08:28)
[2018-12-14] MEDS ORDERED: Albuterol 0.083% 2.5 MG/3 ML Neb Soln NEB PRN (08:28)
[2018-12-14] MEDS ORDERED: Ondansetron 4 MG/2 ML SDV IVPUSH PRN (08:28)
[2018-12-14] MEDS ORDERED: Neostigmine Methylsulfate 1 MG/ML 5 ML Syringe ONE (08:51)
--- NOTE | 2018-12-14 09:36 | PCM.POSTAN ---
POST ANESTHESIA ASSESSMENT - MENTAL STATUS Mental Status: Alert - VITAL SIGNS Vital Signs: Last Vital Signs Temp 97.1f 12/14/18929 Pulse 104 12/14/18929 Resp 23 12/14/18929 BP 119/70 12/14/18929 Pulse Ox 95 12/14/18929 - RESPIRATORY Respiratory Status: Respiratory Rate WNL, Airway Patent, O2 Saturation Stable, Supplemental Oxygen - CARDIOVASCULAR CV Status: Pulse Rate WNL, Blood Pressure Stable - GASTROINTESTINAL GI Status: No Symptoms - POST OP HYDRATION Hydration Status: Adequate & Stable
--- NOTE | 2018-12-14 10:26 | PCM48HPAN ---
Post Anesthesia Note - EVALUATION WITHIN 48HRS OF ANESTHETIC Vital Signs in Normal Range: Yes Patient Participated in Evaluation: Yes Respiratory Function Stable: Yes Airway Patent: Yes Cardiovascular Function Stable: Yes Hydration Status Stable: Yes Pain Control Satisfactory: Yes Nausea and Vomiting Control Satisfactory: Yes Mental Status Recovered: Yes Vital Signs: Last Vital Signs Temp 36.7 C 12/14/18 10:00 Pulse 72 12/14/18 10:06 Resp 16 12/14/18 10:06 BP 105/64 12/14/18 10:06 Pulse Ox 92 L 12/14/18 10:06
[2018-12-14 11:07] VITALS: BP 102/60; PULSE 81
--- NOTE | 2018-12-19 16:20 | PCM.OPNOTE ---
- General Post-Op/Procedure Note Date of Surgery/Procedure: 12/14/18 Operative Procedure(s): right shoulder anterior bankart repair with limited debridement Pre Op Diagnosis: right shoulder anterior instability Post-Op Diagnosis: Same Anesthesia Technique: General ET Tube, Regional Block Primary Surgeon: Darci Mercedes Anesthesia Provider: Alexandra Juárez Pullman Conductor: Georgina Sawant EBL in mLs: 5 Complications: None Condition: Good
--- NOTE | 2018-12-19 17:16 | OR ---
DATE OF OPERATION: 12/14/2018 SURGEON: Darci Mercedes MD PREOPERATIVE DIAGNOSIS: Right shoulder anterior Bankart repair with limited debridement. PREOPERATIVE DIAGNOSIS: Right shoulder anterior instability. POSTOPERATIVE DIAGNOSIS: Right shoulder anterior instability. ANESTHESIA: General endotracheal intubation with regional interscalene block. ANESTHESIA PROVIDER: Alexandra Juárez CRNA TAXONOMIST: Georgina Sawant PA-C ESTIMATED BLOOD LOSS: Less than 5 mL. COMPLICATIONS: None. CONDITION: Stable. DESCRIPTION OF PROCEDURE: The patient was identified in the preop holding area. Proper site was marked and identified by the surgeon. The patient was taken back to the operating theater where after adequate anesthesia, the patient was placed in a lazy left lateral decubitus position. The patient was secured to the table. All bony prominences were well padded. Right upper extremity was then sterilely prepped and draped in the usual sterile fashion. OR time-out was performed. The patient received 2 g of IV Ancef. At this time, 12 pounds of traction was applied to the right upper extremity. Standard posterior incision was made. Scope trocar was introduced through the glenohumeral joint. At this time, with an outside-inside technique, an anterior portal was created as well. The patient was noted to have significant irritation and inflammation as well as feeling that the capsule was in anterior labrum, noted in the 12 to 3 o'clock position. After that, it had good bumper effect but it had not positioned and did have significant erythema. At this time, a rasp was used to roughen the edge of the glenoid, and elevator was used to free the capsule and superior glenohumeral ligament and labrum complex. At this time, starting at the 3 o'clock position, an Arthrex 2.9 mm PushLock labral anchor was placed after the suture was passed through the labral capsular junction. This was then tensioned and was noted to have a good bumper effect, and the anchor was impacted into place with good watertight repair. At this time, another one was placed at the roughly the 1:30 position, and there was good hindu of the bumper effect to the anterior shoulder at this time. At this time, there were no bicipital changes. No irritation or erythema noted at biceps but she did have significant synovitis in the anterior shoulder as well as near the bicipital complex, but the biceps tendon itself showed no erythema. A limited debridement was then done of this area. I did look subacromial. The rotator cuff was intact. At this time, excess saline was drained from the shoulder. A 3-0 nylon shoes were used for closure of the portals. The patient was sent to PACU in stable condition in a sterile soft dressing and a pillow sling. OPERATION PERFORMED: DAMI /[id number]
== END 2018-12-14 10:51 | disposition home or self-care (01) ==
LOC: JD.SDS 06:25
PROVIDERS: ATTEND Orthopaedic Surgery
DX: M25.311 Other instability, right shoulder (principal); E11.9 Type 2 diabetes mellitus without complications; E03.9 Hypothyroidism, unspecified; G43.909 Migraine, unspecified, not intractable, without status migrainosus; F32.9 Major depressive disorder, single episode, unspecified; F41.9 Anxiety disorder, unspecified; E66.9 Obesity, unspecified; Z68.39 Body mass index [BMI] 39.0-39.9, adult; Z91.038 Other insect allergy status; Z91.02 Food additives allergy status; Z79.1 Long term (current) use of non-steroidal anti-inflammatories (NSAID); Z79.84 Long term (current) use of oral hypoglycemic drugs; Z91.048 Other nonmedicinal substance allergy status
CPT/HCPCS: 29806; 29822; 81025; 82962; A9270; C1713; J0171; J0690; J1100; J1885; J2001; J2250; J2405; J2704; J2710; J2795; J3010; J7120; 01630; 64415

== ENCOUNTER 2019-04-01 00:23 | Emergency (ER) | payer OTHER ==
[2019-04-01 01:18] VITALS: BP 125/75; PULSE 126
--- NOTE | 2019-04-01 02:34 | EDM.PDOC ---
ED HPI GENERAL MEDICAL PROBLEM - General Chief Complaint: Lower Extremity Injury/Pain Stated Complaint: RIGHT FOOT INJURY Time Seen by Provider: 04/01/19 01:35 Source of Information: Reports: Patient History Limitations: Reports: No Limitations - History of Present Illness INITIAL COMMENTS - FREE TEXT/NARRATIVE: This is a 24-year-old female. She was outside this evening and slipped on some ice and twisted her right ankle. She complains of pain on the lateral side of the ankle and also foot pain. She denies any other bodily injury from the fall. - Related Data Allergies Allergy/AdvReac Type Severity Reaction Status Date / Time cigarette smoke Allergy Bronchospas Verified 01/13/19 18:43 ms red dye AdvReac Headache Verified 01/13/19 18:43 mosquitos Allergy Rash Uncoded 01/13/19 18:43 Home Meds: Home Meds Levothyroxine 75 mcg PO ACBREAKFAST 04/09/17 [History] Albuterol [Proventil HFA] 2 puff INH Q4H PRN 11/22/18 [History] Albuterol [Proventil] 1 dose NEB QID PRN 11/22/18 [History] Celecoxib 200 mg PO DAILY 11/22/18 [History] Desvenlafaxine [Desvenlafaxine ER] 50 mg PO DAILY 11/22/18 [History] Metoclopramide HCl 5 - 10 mg PO QID PRN 11/22/18 [History] Prazosin [Minpress] 3 mg PO BEDTIME 11/22/18 [History] Rizatriptan Benzoate [Rizatriptan] 5 mg PO ASDIRECTED PRN 11/22/18 [History] lamoTRIgine [Lamotrigine] 125 mg PO DAILY 11/22/18 [History] metFORMIN HCl [Metformin HCl ER] 500 mg PO DAILY 11/22/18 [History] Dicyclomine [Bentyl] 20 mg PO Q6H PRN #20 tab 01/13/19 [Rx] Etonogestrel [Nexplanon] 68 mg SQ ASDIRECTED 01/13/19 [History] Ondansetron [Zofran] 4 mg PO Q6H PRN #20 tab 01/13/19 [Rx] Past Medical History - Past Health History Medical/Surgical History: Denies Medical/Surgical History HEENT History: Reports: Impaired Vision Cardiovascular History: Reports: None Respiratory History: Reports: Asthma Other Respiratory History: exercise induced Gastrointestinal History: Reports: None Genitourinary History: Reports: None 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: Polycystic Ovaries, , Spontaneous Neurological History: Reports: Migraines, Other (See Below) Other Neuro History: thoracic degenerative disc disease Psychiatric History: Reports: Depression, PTSD Endocrine/Metabolic History: Reports: Hypothyroidism, Obesity/BMI 30+ Hematologic History: 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 Other Hematologic History: Factor V Leiden heterozygote Immunologic History: Reports: None Oncologic (Cancer) History: Reports: None Dermatologic History: Reports: None - Infectious Disease History Infectious Disease History: Reports: None - Past Surgical History Head Surgeries/Procedures: Reports: None HEENT Surgical History: Reports: Adenoidectomy, Oral Surgery, Tonsillectomy Cardiovascular Surgical History: Reports: None Respiratory Surgical History: Reports: None GI Surgical History: Reports: None Female Surgical History: Reports: D&C Endocrine Surgical History: Reports: None Neurological Surgical History: Reports: None Musculoskeletal Surgical History: Reports: Arthroscopic Knee, Shoulder Surgery Oncologic Surgical History: Reports: None Dermatological Surgical History: Reports: None Social & Family History - Family History Family Medical History: Noncontributory - Tobacco Use Smoking Status *Q: Never Smoker - Caffeine Use Caffeine Use: Reports: None Caffeine Use Comment: once per week - Living Situation & Occupation Living situation: Reports: , with Spouse, with Family (1 son) Occupation: Unemployed Review of Systems - Review of Systems Review Of Systems: See Below Constitutional: Denies: Chills, Fever Eyes: Reports: No Symptoms Ears: Reports: No Symptoms Nose: Reports: No Symptoms Mouth/Throat: Reports: No Symptoms Respiratory: Denies: Shortness of Breath, Cough Cardiovascular: Reports: No Symptoms GI/Abdominal: Reports: No Symptoms Genitourinary: Reports: No Symptoms Musculoskeletal: Reports: Foot Pain, Other (Ankle pain) Skin: Reports: No Symptoms Neurological: Reports: No Symptoms Psychiatric: Reports: No Symptoms ED EXAM, GENERAL - Physical Exam Exam: See Below Exam Limited By: No Limitations General Appearance: Alert, WD/WN, No Apparent Distress Eye Exam: Bilateral Eye: Normal Inspection Ears: Normal External Exam Nose: Normal Inspection Throat/Mouth: Normal Lips, Normal Voice, No Airway Compromise Head: Normocephalic Neck: Supple Respiratory/Chest: No Respiratory Distress Back Exam: Full Range of Motion Extremities: Other (She is very tender on the lateral malleolus with some swelling noted. The medial malleolus is minimally tender, across the forefoot she has swelling and tenderness noted, neurovascular is grossly intact in on 5 digits, she has no right knee or proximal fibula tenderness. Her left lower extremity is atraumatic.) Neurological: Alert, Oriented Psychiatric: Normal Affect, Normal Mood Skin Exam: Warm, Dry Course - Vital Signs Last Recorded V/S: Last Vital Signs Temp 98.8 F 04/01/19 01:09 Pulse 126 H 04/01/19 01:09 Resp 16 04/01/19 01:09 BP 125/75 04/01/19 01:09 Pulse Ox 96 04/01/19 01:09 - Orders/Labs/Meds Orders: Active Orders 24 hr Category Date Time Status Ankle Min 3V Rt [CR] Stat Exams 04/01/19 01:39 Taken Foot Comp Min 3V Rt [CR] Stat Exams 04/01/19 01:41 Taken DME for Discharge [COMM] Stat Oth 04/01/19 02:29 Ordered - Radiology Interpretation Free Text/Narrative:: Trays of the right ankle and the right foot do not reveal any acute fractures, there is some distance between the base of the first and the second metatarsals but this could be normal versus widened. I am awaiting for the radiologist review. - Re-Assessments/Exams Free Text/Narrative Re-Assessment/Exam: 04/01/19 02:32 Oh to the patient regarding the x-ray results. I indicated that if the radiologist sees anything different than what I am telling her as far as no fractures then we will give her a call. In the meantime I am going to put an Tamir wrap on her ankle and foot and put her on crutches and she is to be nonweightbearing until she follows up with her family doctor. Departure - Departure Time of Disposition: 02:32 Disposition: Home, Self-Care 01 Condition: Good Clinical Impression: Right ankle sprain Qualifiers: Encounter type: initial encounter Involved ligament of ankle: tibiofibular ligament Qualified Code(s): S93.431A - Sprain of tibiofibular ligament of right ankle, initial encounter Sprain of right foot Qualifiers: Encounter type: initial encounter Qualified Code(s): S93.601A - Unspecified sprain of right foot, initial encounter - Discharge Information *PRESCRIPTION DRUG MONITORING PROGRAM REVIEWED*: Not Applicable *COPY OF PRESCRIPTION DRUG MONITORING REPORT IN PATIENT ROE: Not Applicable Instructions: Ankle Sprain, [id number], Foot Sprain Referrals: Enedelia Valiente MD [Primary Care Provider] - Forms: ED Department Discharge, ED Return to Work/School Form Additional Instructions: Stay on the crutches with nonweightbearing until you follow-up with your family doctor, keep it iced and elevated over the next 24 hours, use Tylenol ibuprofen or Aleve as needed for the soreness in the throbbing, if the radiologist sees something different or any problems with the ankle or the foot then we will call you, return to the ER if needed Sepsis Event Note - Evaluation Sepsis Screening Result: No Definite Risk - Focused Exam Vital Signs: Vital Signs Temp Pulse Resp BP Pulse Ox 04/01/19 01:09 98.8 F 126 H 16 125/75 96 Date Exam was Performed: 04/01/19 Time Exam was Performed: 02:29 - My Orders Last 24 Hours: My Active Orders 04/01/19 01:39 Ankle Min 3V Rt [CR] Stat 04/01/19 01:41 Foot Comp Min 3V Rt [CR] Stat 04/01/19 02:29 DME for Discharge [COMM] Stat - Assessment/Plan Last 24 Hours: My Active Orders 04/01/19 01:39 Ankle Min 3V Rt [CR] Stat 04/01/19 01:41 Foot Comp Min 3V Rt [CR] Stat 04/01/19 02:29 DME for Discharge [COMM] Stat
--- NOTE | 2019-04-01 08:37 | CR ---
Right ankle: 4 views of the right ankle were obtained. Comparison: No prior right ankle exam. Ankle mortise is symmetric. No fracture, dislocation or other bony abnormality is seen. Impression: 1. No abnormality is identified on right ankle exam. Diagnostic code #1 This report was dictated in [place] Standard Time
--- NOTE | 2019-04-01 08:42 | CR ---
Right foot: 4 views of the right foot were obtained. Comparison: No prior foot exam is available. Soft tissue swelling is identified. The alignment of the tarsometatarsal joints within the 1st and 2nd digit appear slightly abnormal. Difficult to exclude a minimal Lisfranc injury. In addition, there is slightly irregular distal 1st cuneiform bone being seen and difficult to exclude distal cuneiform bone fracture. No additional abnormality is appreciated. Impression: 1. Soft tissue swelling. 2. Equivocal minimal Lisfranc injury. 3. Slight irregularity of the distal 1st cuneiform bone and difficult to exclude fracture. Note: Please correlate with patient's symptoms, if any further questions remain, CT would be helpful. Diagnostic code #3 This report was dictated in [place] Standard Time
== END 2019-04-01 02:55 | disposition home or self-care (01) ==
LOC: JD.ED 00:23
DX: S92.211A Displaced fracture of cuboid bone of right foot, initial encounter for closed fracture (principal); S92.321A Displaced fracture of second metatarsal bone, right foot, initial encounter for closed fracture; S92.221A Displaced fracture of lateral cuneiform of right foot, initial encounter for closed fracture; J45.909 Unspecified asthma, uncomplicated; E03.9 Hypothyroidism, unspecified; F32.9 Major depressive disorder, single episode, unspecified; E66.9 Obesity, unspecified; Z68.42 Body mass index [BMI] 45.0-49.9, adult; Z91.048 Other nonmedicinal substance allergy status; Z79.899 Other long term (current) drug therapy; W00.0XXA Fall on same level due to ice and snow, initial encounter
CPT/HCPCS: 29515; 73610-26-RT; 73610-RT; 73630-26-RT; 73630-RT; 99283; 99283-25

== ENCOUNTER 2019-06-06 20:01 | Emergency (ER) | payer OTHER ==
--- NOTE | 2019-06-06 20:09 | EDM.PDOC ---
ED HPI GENERAL MEDICAL PROBLEM - General Chief Complaint: Headache Stated Complaint: MIGRAINE Time Seen by Provider: 06/06/19 20:04 Source of Information: Reports: Patient History Limitations: Reports: No Limitations - History of Present Illness INITIAL COMMENTS - FREE TEXT/NARRATIVE: TRIAGE NOTE -- pt presents to ER with c/o of a headache. pt states that she has had a migraine "for 2 weeks" pt states that it has been constant. the pain is a frontal pain that radiates to the right side of head. c/o nausea and light sensitivity denies vomitting. deneis recent illness. denies fever chills and boidy aches. c/o "bluury vision when i walk but if im sitting im fine" As above. Says she has had a migraine for 2 weeks. She has known migraine headaches. She has had full and complete evaluations for this in the past and saw her neurologist as recently as 2 days ago. There has been nausea but no vomiting. Photophobia is noted. She has taken Maxalt without relief. Also some Tylenol. Neurologist recommended Maxalt as well as Tylenol and this is not relieve the headache. There has been no fever. No other symptom of acute medical illness otherwise. She has taken her medications she uses chronically to moderate her headaches as well as other PRN medications per medication list without help. Headache Pain Score (Numeric/FACES): 8 - Related Data Allergies Allergy/AdvReac Type Severity Reaction Status Date / Time cigarette smoke Allergy Bronchospas Verified 06/06/19 20:15 ms red dye AdvReac Headache Verified 06/06/19 20:15 mosquitos Allergy Rash Uncoded 01/13/19 18:43 Home Meds: Home Meds Levothyroxine 75 mcg PO ACBREAKFAST 04/09/17 [History] Albuterol [Proventil HFA] 2 puff INH Q4H PRN 11/22/18 [History] Albuterol [Proventil] 1 dose NEB QID PRN 11/22/18 [History] Celecoxib 200 mg PO DAILY 11/22/18 [History] Desvenlafaxine [Desvenlafaxine ER] 50 mg PO DAILY 11/22/18 [History] Metoclopramide HCl 5 - 10 mg PO QID PRN 11/22/18 [History] Rizatriptan Benzoate [Rizatriptan] 5 mg PO ASDIRECTED PRN 11/22/18 [History] lamoTRIgine [Lamotrigine] 125 mg PO DAILY 11/22/18 [History] metFORMIN HCl [Metformin HCl ER] 500 mg PO DAILY 11/22/18 [History] Etonogestrel [Nexplanon] 68 mg SQ ASDIRECTED 01/13/19 [History] Past Medical History - Past Health History Medical/Surgical History: Denies Medical/Surgical History HEENT History: Reports: Impaired Vision Cardiovascular History: Reports: None Respiratory History: Reports: Asthma Other Respiratory History: exercise induced Gastrointestinal History: Reports: None Genitourinary History: Reports: None [employer] History: Reports: Polycystic Ovaries, , Spontaneous Neurological History: Reports: Migraines, Other (See Below) Other Neuro History: thoracic degenerative disc disease Psychiatric History: Reports: Depression, PTSD Endocrine/Metabolic History: Reports: Hypothyroidism, Obesity/BMI 30+ Hematologic History: 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 Other Hematologic History: Factor V Leiden heterozygote Immunologic History: Reports: None Oncologic (Cancer) History: Reports: None Dermatologic History: Reports: None - Infectious Disease History Infectious Disease History: Reports: None - Past Surgical History Head Surgeries/Procedures: Reports: None HEENT Surgical History: Reports: Adenoidectomy, Oral Surgery, Tonsillectomy Cardiovascular Surgical History: Reports: None Respiratory Surgical History: Reports: None GI Surgical History: Reports: None Female Surgical History: Reports: D&C Endocrine Surgical History: Reports: None Neurological Surgical History: Reports: None Musculoskeletal Surgical History: Reports: Arthroscopic Knee, Shoulder Surgery Oncologic Surgical History: Reports: None Dermatological Surgical History: Reports: None Social & Family History - Family History Family Medical History: Noncontributory - Tobacco Use Smoking Status *Q: Never Smoker - Caffeine Use Caffeine Use: Reports: None Caffeine Use Comment: once per week - Living Situation & Occupation Living situation: Reports: , with Spouse, with Family (1 son) Occupation: Unemployed ED ROS GENERAL - Review of Systems Review Of Systems: Comprehensive ROS is negative, except as noted in HPI. - Physical Exam Exam: See Below Exam Limited By: No Limitations General Appearance: Alert, WD/WN, No Apparent Distress Eye Exam: Bilateral Eye: EOMI, PERRL Ears: Normal External Exam Nose: Normal Inspection Throat/Mouth: Normal Inspection Head Exam: Atraumatic, Normocephalic Neck: Normal Inspection, Supple, Non-Tender Respiratory/Chest: No Respiratory Distress, Lungs Clear, Normal Breath Sounds, No Accessory Muscle Use, Chest Non-Tender Cardiovascular: Regular Rate, Rhythm, No Edema GI/Abdominal: Soft, Non-Tender Neuro Exam (Abbreviated): Alert, Oriented, Normal Cognition, No Motor/Sensory Deficits Back Exam: Normal Inspection Extremities: Normal Inspection, Non-Tender, Other (Foot and ankle boot right lower extremity from recent surgery) Psychiatric: Normal Affect Skin Exam: Warm, Dry Course - Vital Signs Last Recorded V/S: Last Vital Signs Temp 36.6 C 06/06/19 20:10 Pulse 100 06/06/19 20:10 Resp 18 06/06/19 20:10 BP 111/82 06/06/19 20:10 Pulse Ox 99 06/06/19 20:10 - Orders/Labs/Meds Labs: Laboratory Tests 06/06/19 06/06/19 Range/Units 20:48 21:01 POC Glucose 101 (70-105) mg/dL Urine HCG, Qual Negative (NEGATIVE) Meds: Medications Discontinued Medications Generic Name Dose Route Start Last Admin Trade Name Freq PRN Reason Stop Dose Admin Diphenhydramine HCl 25 mg 06/06/19 22:10 06/06/19 22:14 Benadryl IVPUSH 06/06/19 22:11 25 mg ONETIME ONE Administration Sodium Chloride 1,000 mls @ 1,000 mls/hr 06/06/19 20:50 06/06/19 21:09 Normal Saline IV 06/06/19 21:49 1,000 mls/hr ONETIME ONE Administration Methylprednisolone Sodium Succinate 60 mg 06/06/19 22:53 Solu-Medrol IVPUSH 06/06/19 22:54 ONETIME ONE Metoclopramide HCl 10 mg 06/06/19 21:37 06/06/19 21:41 Reglan IVPUSH 06/06/19 21:38 10 mg ONETIME ONE Administration Metoclopramide HCl 10 mg 06/06/19 22:10 06/06/19 22:14 Reglan IVPUSH 06/06/19 22:11 10 mg ONETIME ONE Administration - Re-Assessments/Exams Free Text/Narrative Re-Assessment/Exam: 06/06/19 22:54 The patient has received IV fluids, 2 doses of Reglan IV, a dose of IV Benadryl , and headache has been relieved by this. The patient feels well and is ready to go home. We will give her a dose of Solu-Medrol prior to departure as this may help prevent recurrence of the headache. She is to report this to her neurologist in the morning. Precautions for return to ER. Departure - Departure Time of Disposition: 22:56 Disposition: Home, Self-Care 01 Condition: Good Clinical Impression: Migraine Qualifiers: Migraine type: other Status migrainosus presence: without status migrainosus Intractability: not intractable Qualified Code(s): G43.809 - Other migraine, not intractable, without status migrainosus - Discharge Information Referrals: Enedelia Valiente MD [Primary Care Provider] - Forms: ED Department Discharge Additional Instructions: Your migraine headache has been treated in the emergency department and there was good resolution after administration of Reglan 10 mg, 2 doses, 25 mg of Benadryl IV, a liter of normal saline IV fluids, and prior to departure 60 mg of Solu-Medrol IV which should help prevent recurrence of the migraine. Report this visit to your neurologist in the morning. Return to ER for recurrence of a severe headache especially if associated with fever and return for any balwinder symptoms of any other troubling illness or condition. Also report this visit to your primary. Sepsis Event Note - Focused Exam Vital Signs: Vital Signs Temp Pulse Resp BP Pulse Ox 06/06/19 20:10 36.6 C 100 18 111/82 99 Date Exam was Performed: 06/06/19 Time Exam was Performed: 22:54
[2019-06-06 20:15] VITALS: BP 111/82; PULSE 100
[2019-06-06] MEDS ORDERED: Sodium Chloride 0.9% 1,000 ML IV ONE (20:50)
[2019-06-06] MEDS ORDERED: Metoclopramide 10 MG/2 ML SDV IVPUSH ONE ×2 (21:37→22:10)
[2019-06-06] MEDS ORDERED: diphenhydrAMINE 50 MG/ML SDV IVPUSH ONE (22:10)
[2019-06-06] MEDS ORDERED: methylPREDNISolone Sodium Succinate 40 MG/1 ML SDV IVPUSH ONE (22:53)
== END 2019-06-06 23:19 | disposition home or self-care (01) ==
LOC: JD.ED 20:01
DX: G43.809 Other migraine, not intractable, without status migrainosus (principal); J45.909 Unspecified asthma, uncomplicated; F32.9 Major depressive disorder, single episode, unspecified; F43.10 Post-traumatic stress disorder, unspecified; E03.9 Hypothyroidism, unspecified; E66.9 Obesity, unspecified; Z68.41 Body mass index [BMI] 40.0-44.9, adult; Z91.048 Other nonmedicinal substance allergy status; Z79.899 Other long term (current) drug therapy
CPT/HCPCS: 81025; 82962; 96361; 96374; 96375; 96376; 99284; 99284-25; J1200; J2765; J2920; J7030

== ENCOUNTER 2019-06-07 15:05 | Emergency (ER) | payer OTHER ==
[2019-06-07] MEDS ORDERED: Sodium Chloride 0.9% 10 ML Syringe FLUSH PRN (15:24)
[2019-06-07] MEDS ORDERED: diphenhydrAMINE 50 MG/ML SDV IVPUSH ONE (15:24)
[2019-06-07] MEDS ORDERED: Ketorolac 30 MG/ML SDV IVPUSH ONE (15:24)
[2019-06-07] MEDS ORDERED: Prochlorperazine 10 MG/2 ML SDV IVPUSH ONE (15:24)
--- NOTE | 2019-06-07 16:14 | EDM.PDOC ---
ED HPI GENERAL MEDICAL PROBLEM - General Chief Complaint: Headache Stated Complaint: MIGRAINE Time Seen by Provider: 06/07/19 15:14 Source of Information: Reports: Patient History Limitations: Reports: No Limitations - History of Present Illness INITIAL COMMENTS - FREE TEXT/NARRATIVE: The patient presents with a headache. She has a history of migraines and she sees neurology. She says this headache has been going on for about 2 weeks. She was seen here last night and she did feel a little better but now today it is much worse. She says this is the worst headache she ever had. She has nausea and photophobia. She has no fever, chills, cough, congestion, runny nose , chest pain, shortness of breath, abdominal pain, or vomiting. She has no blurred vision or double vision. She has no numbness or weakness. Onset: Gradual Duration: Week(s): (2) Location: Reports: Head Quality: Reports: Sharp Severity: Severe Improves with: Reports: None Worsens with: Reports: None Associated Symptoms: Reports: Headaches, Nausea/Vomiting. Denies: Chest Pain, Cough, Fever/Chills, Shortness of Breath Headache Pain Score (Numeric/FACES): 9 - Related Data Allergies Allergy/AdvReac Type Severity Reaction Status Date / Time cigarette smoke Allergy Bronchospas Verified 06/06/19 20:15 ms red dye AdvReac Headache Verified 06/06/19 20:15 mosquitos Allergy Rash Uncoded 01/13/19 18:43 Home Meds: Home Meds Levothyroxine 75 mcg PO ACBREAKFAST 04/09/17 [History] Albuterol [Proventil HFA] 2 puff INH Q4H PRN 11/22/18 [History] Albuterol [Proventil] 1 dose NEB QID PRN 11/22/18 [History] Celecoxib 200 mg PO DAILY 11/22/18 [History] Desvenlafaxine [Desvenlafaxine ER] 50 mg PO DAILY 11/22/18 [History] Metoclopramide HCl 5 - 10 mg PO QID PRN 11/22/18 [History] Rizatriptan Benzoate [Rizatriptan] 5 mg PO ASDIRECTED PRN 11/22/18 [History] lamoTRIgine [Lamotrigine] 125 mg PO DAILY 11/22/18 [History] metFORMIN HCl [Metformin HCl ER] 500 mg PO DAILY 11/22/18 [History] Etonogestrel [Nexplanon] 68 mg SQ ASDIRECTED 01/13/19 [History] Ketorolac [Toradol] 10 mg PO Q6H PRN #20 tab 06/07/19 [Rx] Past Medical History - Past Health History Medical/Surgical History: Denies Medical/Surgical History HEENT History: Reports: Impaired Vision Cardiovascular History: Reports: None Respiratory History: Reports: Asthma Other Respiratory History: exercise induced Gastrointestinal History: Reports: None Genitourinary History: Reports: None [employer] History: Reports: Polycystic Ovaries, , Spontaneous Neurological History: Reports: Migraines, Other (See Below) Other Neuro History: thoracic degenerative disc disease Psychiatric History: Reports: Depression, PTSD Endocrine/Metabolic History: Reports: Hypothyroidism, Obesity/BMI 30+ Hematologic History: 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 Other Hematologic History: Factor V Leiden heterozygote Immunologic History: Reports: None Oncologic (Cancer) History: Reports: None Dermatologic History: Reports: None - Infectious Disease History Infectious Disease History: Reports: None - Past Surgical History Head Surgeries/Procedures: Reports: None HEENT Surgical History: Reports: Adenoidectomy, Oral Surgery, Tonsillectomy Cardiovascular Surgical History: Reports: None Respiratory Surgical History: Reports: None GI Surgical History: Reports: None Female Surgical History: Reports: D&C Endocrine Surgical History: Reports: None Neurological Surgical History: Reports: None Musculoskeletal Surgical History: Reports: Arthroscopic Knee, Shoulder Surgery Oncologic Surgical History: Reports: None Dermatological Surgical History: Reports: None Social & Family History - Family History Family Medical History: Noncontributory - Tobacco Use Smoking Status *Q: Never Smoker - Caffeine Use Caffeine Use: Reports: Coffee Caffeine Use Comment: once per week - Recreational Drug Use Recreational Drug Use: No - Living Situation & Occupation Living situation: Reports: , with Spouse, with Family (1 son) Occupation: Unemployed ED ROS GENERAL - Review of Systems Review Of Systems: See Below Constitutional: Reports: No Symptoms HEENT: Reports: No Symptoms Respiratory: Reports: No Symptoms Cardiovascular: Reports: No Symptoms Endocrine: Reports: No Symptoms GI/Abdominal: Reports: Nausea. Denies: Abdominal Pain, Vomiting : Reports: No Symptoms Musculoskeletal: Reports: No Symptoms Neurological: Reports: Headache - Physical Exam Exam: See Below Exam Limited By: No Limitations General Appearance: Alert, No Apparent Distress Ears: Normal External Exam Nose: Normal Inspection Head Exam: Atraumatic, Normocephalic Neck: Normal Inspection Respiratory/Chest: No Respiratory Distress, Lungs Clear, Normal Breath Sounds Cardiovascular: Regular Rate, Rhythm, No Edema, No Murmur GI/Abdominal: Soft, Non-Tender, No Organomegaly, No Mass Neuro Exam (Abbreviated): Alert, Oriented, No Motor/Sensory Deficits Course - Vital Signs Last Recorded V/S: Last Vital Signs Temp 97.7 F 06/07/19 15:20 Pulse 105 H 06/07/19 15:20 Resp 20 06/07/19 15:20 BP 117/66 06/07/19 15:20 Pulse Ox 97 06/07/19 15:20 - Orders/Labs/Meds Orders: Active Orders 24 hr Category Date Time Status Peripheral IV Care [RC] . DIRECTED Care 06/07/19 15:24 Active Sodium Chloride 0.9% [Saline Flush] Med 06/07/19 15:24 Active 10 ml FLUSH ASDIRECTED PRN Peripheral IV Insertion Adult [OM.PC] Routine Oth 06/07/19 15:24 Ordered Medication Orders Sodium Chloride (Saline Flush) 10 ml FLUSH ASDIRECTED PRN PRN Reason: Keep Vein Open Last Admin: 06/07/19 15:55 Dose: 10 ml Meds: Medications Generic Name Dose Route Start Last Admin Trade Name Freq PRN Reason Stop Dose Admin Sodium Chloride 10 ml 06/07/19 15:24 06/07/19 15:55 Saline Flush FLUSH 10 ml ASDIRECTED PRN Administration Keep Vein Open Discontinued Medications Generic Name Dose Route Start Last Admin Trade Name Freq PRN Reason Stop Dose Admin Diphenhydramine HCl 50 mg 06/07/19 15:24 06/07/19 15:55 Benadryl IVPUSH 06/07/19 15:25 50 mg ONETIME ONE Administration Ketorolac Tromethamine 30 mg 06/07/19 15:24 06/07/19 15:55 Toradol IVPUSH 06/07/19 15:25 30 mg ONETIME ONE Administration Prochlorperazine Edisylate 10 mg 06/07/19 15:24 06/07/19 15:56 Compazine IVPUSH 06/07/19 15:25 10 mg ONETIME ONE Administration - Re-Assessments/Exams Free Text/Narrative Re-Assessment/Exam: 06/07/19 16:15 I ordered an IV saline lock, toradol 30mg IV, compazine 10mg IV, benadryl 50mg IV and a CT of her head. 06/07/19 16:[address] shows nothing acute. She is feeling better and would like to go home. Departure - Departure Time of Disposition: 16:55 Disposition: Home, Self-Care 01 Condition: Good Clinical Impression: Migraine - Discharge Information *PRESCRIPTION DRUG MONITORING PROGRAM REVIEWED*: Not Applicable *COPY OF PRESCRIPTION DRUG MONITORING REPORT IN PATIENT ROE: Not Applicable Prescriptions: Ketorolac [Toradol] 10 mg PO Q6H PRN #20 tab PRN Reason: Pain Referrals: Enedelia Valiente MD [Primary Care Provider] - 1 Week Forms: ED Department Discharge Additional Instructions: Go home and rest. Take the toradol as needed for pain. Do not take any other antiinflammatory such as motrin, aleve or celocoxib. Please return if you are worse. Sepsis Event Note - Evaluation Sepsis Screening Result: No Definite Risk - Focused Exam Vital Signs: Vital Signs Temp Pulse Resp BP Pulse Ox 06/07/19 15:20 97.7 F 105 H 20 117/66 97 Date Exam was Performed: 06/07/19 Time Exam was Performed: 16:52 - My Orders Last 24 Hours: My Active Orders 06/07/19 15:24 Peripheral IV Care [RC] . DIRECTED Sodium Chloride 0.9% [Saline Flush] 10 ml FLUSH ASDIRECTED PRN Peripheral IV Insertion Adult [OM.PC] Routine - Assessment/Plan Last 24 Hours: My Active Orders 06/07/19 15:24 Peripheral IV Care [RC] . DIRECTED Sodium Chloride 0.9% [Saline Flush] 10 ml FLUSH ASDIRECTED PRN Peripheral IV Insertion Adult [OM.PC] Routine
--- NOTE | 2019-06-07 16:33 | CT ---
Head CT Technique: Multiple axial sections through the brain were obtained. Intravenous contrast was not utilized. Comparison: No prior intracranial imaging is available. Findings: Ventricles along with basal cisterns and sulci over the convexities appear within normal limits for the patient's age. No abnormal parenchymal densities are seen. No evidence of intracranial hemorrhage. No midline shift or mass effect is seen. Bone window settings were reviewed. No acute calvarial abnormality is appreciated. Visualized paranasal sinuses show nothing acute. Impression: 1. Nothing acute is appreciated on noncontrast head CT exam. Diagnostic code #1 Study was dictated in MDT
[2019-06-07 17:07] VITALS: BP 114/70; PULSE 67
== END 2019-06-07 17:05 | disposition home or self-care (01) ==
LOC: JD.ED 15:05
DX: G43.909 Migraine, unspecified, not intractable, without status migrainosus (principal); J45.909 Unspecified asthma, uncomplicated; F32.9 Major depressive disorder, single episode, unspecified; E03.9 Hypothyroidism, unspecified; E66.9 Obesity, unspecified; Z79.899 Other long term (current) drug therapy; Z68.39 Body mass index [BMI] 39.0-39.9, adult; Z91.041 Radiographic dye allergy status
CPT/HCPCS: 70450; 96374; 96375; 99284; J0780; J1200; J1885; 99283

== ENCOUNTER 2019-06-21 16:06 | Emergency (ER) | payer OTHER ==
[2019-06-21 16:32] VITALS: BP 122/79; PULSE 102
[2019-06-21] MEDS ORDERED: Ketorolac 60 MG/2 ML SDV IM ONE (17:36)
[2019-06-21] MEDS: Ketorolac 30 MG/ML SDV ONE ×2 (17:47→17:48)
--- NOTE | 2019-06-21 17:59 | EDM.PDOC ---
ED HPI GENERAL MEDICAL PROBLEM - General Chief Complaint: Lower Extremity Injury/Pain Stated Complaint: FELL DOWN STAIR, ANKLE BROKE Time Seen by Provider: 06/21/19 16:30 Source of Information: Reports: Patient History Limitations: Reports: No Limitations - History of Present Illness Onset: Today Onset Date: 06/21/19 Onset Time: 14:00 Duration: Getting Worse Location: Reports: Lower Extremity, Left Quality: Reports: Throbbing Severity: Mild Improves with: Reports: None Worsens with: Reports: Movement Context: Reports: Other (tripped going down stairs fell 4 down 4 steps) Associated Symptoms: Denies: Confusion, Chest Pain, Shortness of Breath, Weakness Left Ankle Pain Score (Numeric/FACES): 8 - Related Data Allergies Allergy/AdvReac Type Severity Reaction Status Date / Time cigarette smoke Allergy Bronchospas Verified 06/21/19 16:32 ms red dye AdvReac Headache Verified 06/21/19 16:32 mosquitos Allergy Rash Uncoded 06/21/19 16:32 Home Meds: Home Meds Levothyroxine 75 mcg PO ACBREAKFAST 04/09/17 [History] Albuterol [Proventil HFA] 2 puff INH Q4H PRN 11/22/18 [History] Albuterol [Proventil] 1 dose NEB QID PRN 11/22/18 [History] Celecoxib 200 mg PO DAILY 11/22/18 [History] Desvenlafaxine [Desvenlafaxine ER] 50 mg PO DAILY 11/22/18 [History] Metoclopramide HCl 5 - 10 mg PO QID PRN 11/22/18 [History] Rizatriptan Benzoate [Rizatriptan] 5 mg PO ASDIRECTED PRN 11/22/18 [History] lamoTRIgine [Lamotrigine] 125 mg PO DAILY 11/22/18 [History] metFORMIN HCl [Metformin HCl ER] 500 mg PO DAILY 11/22/18 [History] Etonogestrel [Nexplanon] 68 mg SQ ASDIRECTED 01/13/19 [History] Ketorolac [Toradol] 10 mg PO Q6H PRN #20 tab 06/07/19 [Rx] Past Medical History - Past Health History Medical/Surgical History: Denies Medical/Surgical History HEENT History: Reports: Impaired Vision Cardiovascular History: Reports: None Respiratory History: Reports: Asthma Other Respiratory History: exercise induced Gastrointestinal History: Reports: None Genitourinary History: Reports: None 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: Reports: Polycystic Ovaries, , Spontaneous Neurological History: Reports: Migraines, Other (See Below) Other Neuro History: thoracic degenerative disc disease Psychiatric History: Reports: Depression, PTSD Endocrine/Metabolic History: Reports: Hypothyroidism, Obesity/BMI 30+ Hematologic History: 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 Other Hematologic History: Factor V Leiden heterozygote Immunologic History: Reports: None Oncologic (Cancer) History: Reports: None Dermatologic History: Reports: None - Infectious Disease History Infectious Disease History: Reports: None - Past Surgical History Head Surgeries/Procedures: Reports: None HEENT Surgical History: Reports: Adenoidectomy, Oral Surgery, Tonsillectomy Cardiovascular Surgical History: Reports: None Respiratory Surgical History: Reports: None GI Surgical History: Reports: None Female Surgical History: Reports: D&C Endocrine Surgical History: Reports: None Neurological Surgical History: Reports: None Musculoskeletal Surgical History: Reports: Arthroscopic Knee, Shoulder Surgery, Other (See Below) Other Musculoskeletal Surgeries/Procedures:: L foot fx surgery Oncologic Surgical History: Reports: None Dermatological Surgical History: Reports: None Social & Family History - Family History Family Medical History: Noncontributory - Tobacco Use Smoking Status *Q: Never Smoker Second Hand Smoke Exposure: No - Caffeine Use Caffeine Use: Reports: None Caffeine Use Comment: once per week - Recreational Drug Use Recreational Drug Use: No - Living Situation & Occupation Living situation: Reports: , with Spouse, with Family (1 son) Occupation: Unemployed Review of Systems - Review of Systems Review Of Systems: Comprehensive ROS is negative, except as noted in HPI. Ears: Denies: Dizziness Respiratory: Denies: Shortness of Breath Cardiovascular: Denies: Chest Pain GI/Abdominal: Denies: Abdominal Pain Musculoskeletal: Reports: Foot Pain, Joint Swelling. Denies: Neck Pain, Back Pain Skin: Denies: Bruising Neurological: Denies: Confusion, Dizziness, Headache Psychiatric: Reports: No Symptoms ED EXAM, GENERAL - Physical Exam Exam: See Below Exam Limited By: No Limitations General Appearance: Alert, WD/WN, No Apparent Distress Eye Exam: Bilateral Eye: EOMI, PERRL Ears: Normal External Exam, Normal Canal, Hearing Grossly Normal, Normal TMs Nose: Normal Inspection, Normal Mucosa, No Blood Head: Atraumatic, Normocephalic Neck: Normal Inspection, Supple, Non-Tender, Full Range of Motion Respiratory/Chest: No Respiratory Distress, Lungs Clear, Normal Breath Sounds, No Accessory Muscle Use, Chest Non-Tender Cardiovascular: Normal Peripheral Pulses, Regular Rate, Rhythm, No Gallop, No JVD, No Murmur, No Rub Back Exam: Normal Inspection, Full Range of Motion Extremities: Normal Capillary Refill, Joint Swelling, Limited Range of Motion, Other (left lateral malleus swelling.) Psychiatric: Normal Affect, Normal Mood Skin Exam: Warm, Dry, Intact, Normal Color, No Rash Lymphatic: No Adenopathy Course - Vital Signs Text/Narrative:: Alma Dimas is a 24-year-old female who presents the emergency room chief complaints of left ankle pain. She reports earlier today will going down stairs she turned to see if her son was found her lost her balance and fell 4 steps landing on her left ankle. She denies any neck pain headache and is on no blood thinners. She currently is wearing a walking boot on her right foot for a previous injury 2 months ago. Last Recorded V/S: Last Vital Signs Temp 98.0 F 06/21/19 16:29 Pulse 102 H 06/21/19 16:29 Resp 20 06/21/19 16:29 BP 122/79 06/21/19 16:29 Pulse Ox 99 06/21/19 16:29 - Orders/Labs/Meds Orders: Active Orders 24 hr Category Date Time Status POCTesting [POC Labs] [RC] ASDIRECTED Care 06/21/19 17:25 Inactive Ankle Min 3V Lt [CR] Stat Exams 06/21/19 17:12 Taken Labs: Laboratory Tests 06/21/19 Range/Units 17:17 Urine HCG, Qual Negative (NEGATIVE) Meds: Medications Discontinued Medications Generic Name Dose Route Start Last Admin Trade Name Freq PRN Reason Stop Dose Admin Ketorolac Tromethamine 60 mg 06/21/19 17:36 06/21/19 17:48 Toradol IM 06/21/19 17:37 60 mg ONETIME ONE Administration Ketorolac Tromethamine Confirm 06/21/19 17:43 06/21/19 17:48 Toradol Administered 06/21/19 17:44 Not Given Dose 60 mg .ROUTE .STK-MED ONE - Re-Assessments/Exams Free Text/Narrative Re-Assessment/Exam: 06/21/19 18:28 hCG is negative. Patient reports she feels better after receiving Toradol for pain. Preliminary x-ray reveals no fracture or dislocation. If there is a change after radiologist reads as I will contact the patient. Will discharge home with Tamir wrap and ankle stirrup. Instructed patient to take Tylenol ibuprofen as needed for pain. Instructed patient to use ice more than 20 minutes at a time. I offered crutches but patient refused states that she has a pair at home. Patient to follow-up with orthopedic as needed. Instructed patient to return to the emergency room for any new or increasing symptoms. Patient verbalized understanding and is comfortable plan for discharge. Patient is stable at time of discharge. Departure - Departure Time of Disposition: 18:31 Disposition: Home, Self-Care 01 Condition: Good Clinical Impression: Sprain and strain of ankle - Discharge Information Instructions: How to Use Cold Therapy, [id number], Ankle Sprain Referrals: Enedelia Valiente MD [Primary Care Provider] - Forms: ED Department Discharge Additional Instructions: Your seen and evaluated today for left ankle pain. Preliminary x-ray reveals no fracture or dislocation. However if after the radiologist reads it and there is a change I will contact you. Take Tylenol or ibuprofen as needed for pain. Elevate your ankle. Use ice more than 20 minutes at a time. Follow-up with your orthopedic as needed. Return to emergency room for any new or acute worsening symptoms. Sepsis Event Note - Evaluation Sepsis Screening Result: No Definite Risk - Focused Exam Vital Signs: Vital Signs Temp Pulse Resp BP Pulse Ox 06/21/19 16:29 98.0 F 102 H 20 122/79 99 Date Exam was Performed: 06/21/19 Time Exam was Performed: 18:32 - My Orders Last 24 Hours: My Active Orders 06/21/19 17:12 Ankle Min 3V Lt [CR] Stat 06/21/19 17:25 POCTesting [POC Labs] [RC] ASDIRECTED - Assessment/Plan Last 24 Hours: My Active Orders 06/21/19 17:12 Ankle Min 3V Lt [CR] Stat 06/21/19 17:25 POCTesting [POC Labs] [RC] ASDIRECTED
--- NOTE | 2019-06-22 09:54 | CR ---
Left ankle: 4 views left ankle were obtained. Comparison: No prior left ankle exam. Soft tissue swelling is identified. No acute fracture or other bony abnormality is identified. Impression: 1. Soft tissue swelling. 2. No acute bony abnormality is appreciated on left ankle exam. Diagnostic code #2 This report was dictated in MDT
== END 2019-06-21 19:09 | disposition home or self-care (01) ==
LOC: JD.ED 16:06
DX: S96.912A Strain of unspecified muscle and tendon at ankle and foot level, left foot, initial encounter (principal); S93.402A Sprain of unspecified ligament of left ankle, initial encounter; J45.909 Unspecified asthma, uncomplicated; F32.9 Major depressive disorder, single episode, unspecified; E03.9 Hypothyroidism, unspecified; E66.9 Obesity, unspecified; Z68.41 Body mass index [BMI] 40.0-44.9, adult; G43.909 Migraine, unspecified, not intractable, without status migrainosus; Z79.84 Long term (current) use of oral hypoglycemic drugs; Z79.899 Other long term (current) drug therapy; Z91.09 Other allergy status, other than to drugs and biological substances; Z91.041 Radiographic dye allergy status; W10.9XXA Fall (on) (from) unspecified stairs and steps, initial encounter
CPT/HCPCS: 73610; 81025; 96372; 99283; J1885

== ENCOUNTER 2019-11-25 03:09 | Emergency (ER) | payer OTHER ==
[2019-11-25 03:15] VITALS: BP 126/94; PULSE 129
[2019-11-25] MEDS ORDERED: LORazepam 2 MG/ML SDV IVPUSH ONE (03:24)
[2019-11-25] MEDS ORDERED: Albuterol/Ipratropium 3.0-0.5 MG/3 ML Neb Soln NEB ONE (03:25)
--- NOTE | 2019-11-25 04:12 | EDM.PDOC ---
ED HPI GENERAL MEDICAL PROBLEM - General Chief Complaint: Asthma Stated Complaint: SOB Time Seen by Provider: 11/25/19 03:17 Source of Information: Reports: Patient History Limitations: Reports: No Limitations - History of Present Illness INITIAL COMMENTS - FREE TEXT/NARRATIVE: This is a 24-year-old female. Apparently she was out tonight drinking and she had sudden onset of shortness of breath and shaking and she comes to the ER stating she is having an asthma attack. She also has a history of panic attacks. When she comes in she has a difficult time talking due to her r espiratory heaving when I was finally able to talk with her her sentences were interrupted by her gasping and breathing yet she was not having any wheezing or difficulty in inspiration or expiration. She denies any fever or chills she denies any cough or congestion. The patient indicates to me that he she does not normally drink. - Related Data Allergies Allergy/AdvReac Type Severity Reaction Status Date / Time cigarette smoke Allergy Bronchospas Verified 06/21/19 16:32 ms red dye AdvReac Headache Verified 06/21/19 16:32 mosquitos Allergy Rash Uncoded 06/21/19 16:32 Home Meds: Home Meds Levothyroxine 75 mcg PO ACBREAKFAST 04/09/17 [History] Albuterol [Proventil HFA] 2 puff INH Q4H PRN 11/22/18 [History] Albuterol [Proventil] 1 dose NEB QID PRN 11/22/18 [History] Celecoxib 200 mg PO DAILY 11/22/18 [History] Desvenlafaxine [Desvenlafaxine ER] 50 mg PO DAILY 11/22/18 [History] Metoclopramide HCl 5 - 10 mg PO QID PRN 11/22/18 [History] Rizatriptan Benzoate [Rizatriptan] 5 mg PO ASDIRECTED PRN 11/22/18 [History] lamoTRIgine [Lamotrigine] 125 mg PO DAILY 11/22/18 [History] metFORMIN HCl [Metformin HCl ER] 500 mg PO DAILY 11/22/18 [History] Etonogestrel [Nexplanon] 68 mg SQ ASDIRECTED 01/13/19 [History] Ketorolac [Toradol] 10 mg PO Q6H PRN #20 tab 04/16/20 [Rx] Past Medical History - Past Health History Medical/Surgical History: Denies Medical/Surgical History HEENT History: Reports: Impaired Vision Cardiovascular History: Reports: None Respiratory History: Reports: Asthma Other Respiratory History: exercise induced Gastrointestinal History: Reports: None Genitourinary History: Reports: None 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: Reports: Polycystic Ovaries, , Spontaneous Neurological History: Reports: Migraines, Other (See Below) Other Neuro History: thoracic degenerative disc disease Psychiatric History: Reports: Depression, PTSD Endocrine/Metabolic History: Reports: Hypothyroidism, Obesity/BMI 30+ Hematologic History: 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 Other Hematologic History: Factor V Leiden heterozygote Immunologic History: Reports: None Oncologic (Cancer) History: Reports: None Dermatologic History: Reports: None - Infectious Disease History Infectious Disease History: Reports: None - Past Surgical History HEENT Surgical History: Reports: Adenoidectomy, Oral Surgery, Tonsillectomy Female Surgical History: Reports: D&C Endocrine Surgical History: Reports: None Musculoskeletal Surgical History: Reports: Arthroscopic Knee, Shoulder Surgery, Other (See Below) Other Musculoskeletal Surgeries/Procedures:: L foot fx surgery Social & Family History - Family History Family Medical History: Noncontributory - Tobacco Use Smoking Status *Q: Unknown Ever Smoked - Caffeine Use Caffeine Use: Reports: None Caffeine Use Comment: once per week - Living Situation & Occupation Living situation: Reports: , with Spouse, with Family (1 son) Occupation: Unemployed ED ROS GENERAL - Review of Systems Review Of Systems: See Below Constitutional: Denies: Fever, Chills HEENT: Reports: No Symptoms Respiratory: Reports: Shortness of Breath. Denies: Wheezing, Cough Cardiovascular: Reports: No Symptoms Endocrine: Reports: No Symptoms GI/Abdominal: Reports: No Symptoms : Reports: No Symptoms Musculoskeletal: Reports: No Symptoms Skin: Reports: No Symptoms Neurological: Reports: No Symptoms Psychiatric: Reports: No Symptoms Hematologic/Lymphatic: Reports: No Symptoms ED EXAM, GENERAL - Physical Exam Exam: See Below Exam Limited By: No Limitations General Appearance: Alert, WD/WN, Moderate Distress Eye Exam: Bilateral Eye: Normal Inspection Ears: Normal External Exam Nose: Normal Inspection Throat/Mouth: Normal Voice, No Airway Compromise, Other (He is gasping for breathing and that interrupts her speech but she has a normal voice is just quivering) Head: Normocephalic Neck: Supple Respiratory/Chest: Lungs Clear, Other (And though she is breathing rapidly she really has no wheezing and no prolonged expiratory phase) Cardiovascular: Regular Rate, Rhythm, No Murmur, Tachycardia GI/Abdominal: Soft Back Exam: Full Range of Motion Extremities: Normal Inspection, Normal Range of Motion Neurological: Alert, Oriented Psychiatric: Anxious Skin Exam: Warm, Dry Course - Vital Signs Last Recorded V/S: Last Vital Signs Temp 98.5 F 11/25/19 03:13 Pulse 129 H 11/25/19 03:13 Resp 40 H 11/25/19 03:13 BP 126/94 H 11/25/19 03:13 Pulse Ox 100 11/25/19 03:34 - Orders/Labs/Meds Orders: Active Orders 24 hr Category Date Time Status RT Aerosol Therapy [RC] ASDIRECTED Care 11/25/19 03:25 Active Meds: Medications Discontinued Medications Generic Name Dose Route Start Last Admin Trade Name Freq PRN Reason Stop Dose Admin Albuterol/Ipratropium 3 ml 11/25/19 03:25 11/25/19 03:29 Duoneb 3.0-0.5 Mg/3 Ml NEB 11/25/19 03:26 3 ml ONETIME ONE Administration Lorazepam 1 mg 11/25/19 03:24 11/25/19 03:30 Ativan IVPUSH 11/25/19 03:25 1 mg ONETIME ONE Administration - Re-Assessments/Exams Free Text/Narrative Re-Assessment/Exam: 11/25/19 05:34 The patient has been sleeping peacefully after we gave her the Ativan. She is easily awakened. She says she feels fine now she is not short of breath and she wants to go home. Departure - Departure Time of Disposition: 05:34 Disposition: Home, Self-Care 01 Condition: Good Clinical Impression: Anxiety reaction, Panic attack - Discharge Information *PRESCRIPTION DRUG MONITORING PROGRAM REVIEWED*: Not Applicable *COPY OF PRESCRIPTION DRUG MONITORING REPORT IN PATIENT ROE: Not Applicable Instructions: Panic Attack, [id number] Referrals: Enedelia Valiente MANUFACTURING DESIGN ENGINEER [Primary Care Provider] - Forms: ED Department Discharge Additional Instructions: Drinking can frequently cause your mind to not be inhibited which can cause a panic attack to occur, I believe that what experienced this morning was a panic attack not related to your asthma, I would encourage you not to drink alcohol, follow-up with your family doctor this week for recheck and return to the ER if needed Sepsis Event Note (ED) - Evaluation Sepsis Screening Result: No Definite Risk - Focused Exam Vital Signs: Vital Signs Temp Pulse Resp BP Pulse Ox Pulse Ox 11/25/19 03:34 100 11/25/19 03:13 98.5 F 129 H 40 H 126/94 H 100 - My Orders Last 24 Hours: My Active Orders 11/25/19 03:25 RT Aerosol Therapy [RC] ASDIRECTED - Assessment/Plan Last 24 Hours: My Active Orders 11/25/19 03:25 RT Aerosol Therapy [RC] ASDIRECTED
== END 2019-11-25 05:49 | disposition home or self-care (01) ==
LOC: JD.ED 03:09
DX: F41.0 Panic disorder [episodic paroxysmal anxiety] (principal); J45.909 Unspecified asthma, uncomplicated; F32.9 Major depressive disorder, single episode, unspecified; E03.9 Hypothyroidism, unspecified; E66.9 Obesity, unspecified; Z91.048 Other nonmedicinal substance allergy status; Z91.018 Allergy to other foods; Z79.899 Other long term (current) drug therapy
CPT/HCPCS: 94640; 96374; 99284; J2060; 99283; J7620-GY

== ENCOUNTER 2020-08-03 18:16 | Emergency (ER) | payer OTHER ==
[2020-08-03 18:38] VITALS: BP 127/77; PULSE 101
[2020-08-03] MEDS ORDERED: Lidocaine 1% with EPINEPHrine 1:100,000 10 ML MDV INJECT ONE (18:58)
[2020-08-03] MEDS ORDERED: Diphtheria,Pertussis(Acell),Tetanus Vaccine 0.5 ML Syringe IM ONE (19:13)
[2020-08-03] MEDS ORDERED: Amoxicillin/Clavulanate K 875-125 MG Tab PO ONE (19:13)
--- NOTE | 2020-08-03 20:41 | EDM.PDOC ---
ED HPI GENERAL MEDICAL PROBLEM - General Chief Complaint: Bite:Animal, Insect Stated Complaint: DOG BITE/LEFT LEG Time Seen by Provider: 08/03/20 18:37 Source of Information: Reports: Patient, RN Notes Reviewed History Limitations: Reports: No Limitations - History of Present Illness INITIAL COMMENTS - FREE TEXT/NARRATIVE: Patient is a 25-year-old female who presents to the ER for the evaluation of a dog bite on her left calf. There are multiple lacerations to the patient's posterior left calf. Bleeding is well controlled at this time. Notes that she was bitten by her new puppy which is a blue healer, and the puppy is up-to-date on vaccinations. She does not believe she is up-to-date on her tetanus vaccine. She is not having too much pain into her left calf. Patient denies any other sick-like symptoms, fever/chills, cough/shortness of breath, nausea/vomiting/diarrhea. Left Leg Pain Score (Numeric/FACES): 4 - Related Data Allergies Allergy/AdvReac Type Severity Reaction Status Date / Time cigarette smoke Allergy Bronchospas Verified 08/03/20 18:34 ms red dye AdvReac Headache Verified 08/03/20 18:34 mosquitos Allergy Rash Uncoded 08/03/20 18:34 Home Meds: Home Meds Amoxicillin/Clavulanate K [Augmentin 875-125 MG] 1 tab PO BID #14 tablet 08/03/20 [Rx] FLUoxetine [PROzac] 40 mg PO DAILY 08/03/20 [History] Galcanezumab-Gnlm [Emgality] 120 mg SQ Q30D 08/03/20 [History] Levothyroxine [Synthroid] 88 mcg PO ACBREAKFAST 08/03/20 [History] Nortriptyline HCl [Pamelor] 25 mg PO BID 08/03/20 [History] Topiramate [Topamax] 50 mg PO BID 08/03/20 [History] lamoTRIgine [Lamictal] 100 mg PO DAILY 08/03/20 [History] metFORMIN [Glucophage XR] 500 mg PO DAILY 08/03/20 [History] Past Medical History - Past Health History Medical/Surgical History: Denies Medical/Surgical History HEENT History: Reports: Impaired Vision Cardiovascular History: Reports: None Respiratory History: Reports: Asthma Other Respiratory History: exercise induced Gastrointestinal History: Reports: None Genitourinary History: Reports: None 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: Polycystic Ovaries, , Spontaneous Neurological History: Reports: Migraines, Other (See Below) Other Neuro History: thoracic degenerative disc disease Psychiatric History: Reports: Anxiety, Depression, PTSD Endocrine/Metabolic History: Reports: Hypothyroidism, Obesity/BMI 30+ Hematologic History: 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 Other Hematologic History: Factor V Leiden heterozygote Immunologic History: Reports: None Oncologic (Cancer) History: Reports: None Dermatologic History: Reports: None - Infectious Disease History Infectious Disease History: Reports: None - Past Surgical History HEENT Surgical History: Reports: Adenoidectomy, Oral Surgery, Tonsillectomy Cardiovascular Surgical History: Reports: None GI Surgical History: Reports: Cholecystectomy Female Surgical History: Reports: D&C Musculoskeletal Surgical History: Reports: Arthroscopic Knee, Shoulder Surgery, Other (See Below) Other Musculoskeletal Surgeries/Procedures:: L foot fx surgery Oncologic Surgical History: Reports: None Social & Family History - Family History Family Medical History: No Pertinent Family History - Tobacco Use Tobacco Use Status *Q: Never Tobacco User - Caffeine Use Caffeine Use: Reports: Coffee Caffeine Use Comment: once per week - Recreational Drug Use Recreational Drug Use: No - Living Situation & Occupation Living situation: Reports: , with Spouse, with Family (1 son) Occupation: Unemployed ED ROS GENERAL - Review of Systems Review Of Systems: Comprehensive ROS is negative, except as noted in HPI. ED EXAM, ANIMAL BITE - Physical Exam Exam: See Below Exam Limited By: No Limitations General Appearance: Alert, WD/WN, No Apparent Distress Respiratory/Chest: No Respiratory Distress, Lungs Clear, Normal Breath Sounds, No Accessory Muscle Use, Chest Non-Tender Cardiovascular: Normal Peripheral Pulses, Regular Rate, Rhythm, No Edema Peripheral Pulses: 2+: Radial (L), Radial (R) GI/Abdominal: Normal Bowel Sounds, Soft, Non-Tender, No Distention, No Mass Extremities: Normal Inspection, Normal Capillary Refill Neurological: Alert, Oriented, Normal Cognition, No Motor/Sensory Deficits Psychiatric: Normal Affect, Normal Mood Skin Exam: Normal Color, Warm/Dry, Other (Multiple lacerations of various lengths on the patient's left posterior calf, I believe that I counted 3.) ED ANIMAL BITE PROCEDURES - Laceration/Wound Repair Left Posterior Leg Lac/Wound Length In cm: 1 Appearance: Subcutaneous, Linear, Mildly Contaminated Distal NVT: Neuro & Vascular Intact, No Tendon Injury Anesthetic Type: Local Local Anesthesia - Lidocaine (Xylocaine): 1% with EPI Local Anesthetic Volume: 5cc Skin Prep: Chlorhexidine (Hibiciens), Saline Exploration/Debridement/Repair: Wound Explored, In a Bloodless Field, Explored to Base, No Foreign Material Found Closed With: Sutures Suture Size: 4-0 Suture Type: Prolene, Interrupted, Simple Sterile Dressing Applied: Nurse Tetanus Status Addressed: Yes Complications: No Progress/Comments: There were 3 wounds on the patient's posterior leg, that needed repair, 2 were 2 cm and one was 1 cm. One laceration received 4 sutures, the other 2 cm laceration received 3 sutures, and a 1 cm laceration received 2 sutures. There was a triangle wound as well, that had no skin to repair over it, so this is going to be left open to heal by secondary intention. Patient verbalized understanding of this. Course - Vital Signs Last Recorded V/S: Last Vital Signs Temp 97.5 F 08/03/20 18:35 Pulse 101 H 08/03/20 18:35 Resp 14 08/03/20 18:35 BP 127/77 08/03/20 18:35 Pulse Ox 100 08/03/20 18:35 - Orders/Labs/Meds Meds: Medications Discontinued Medications Generic Name Dose Route Start Last Admin Trade Name Abbie PRN Reason Stop Dose Admin Lidocaine/Epinephrine 10 ml 08/03/20 18:58 08/03/20 19:06 Lidocaine 1% With Epinephrine 1:100,000 10 Ml Mdv INJECT 08/03/20 18:59 10 ml ONETIME ONE Administration Departure - Departure Time of Disposition: 20:42 Disposition: Home, Self-Care 01 Condition: Good Clinical Impression: Dog bite of calf Qualifiers: Encounter type: initial encounter Laterality: left Qualified Code(s): S81.852A - Open bite, left lower leg, initial encounter; W54.0XXA - Bitten by dog, initial encounter - Discharge Information *PRESCRIPTION DRUG MONITORING PROGRAM REVIEWED*: No *COPY OF PRESCRIPTION DRUG MONITORING REPORT IN PATIENT ROE: No Instructions: Animal Bite, Adult, [id number] Referrals: Enedelia Valiente CYBER SECURITY SPECIALIST [Primary Care Provider] - Forms: ED Department Discharge, ED Return to Work/School Form Additional Instructions: You have been evaluated in the ED for your dog bite wounds. Sutures will need to stay in for 10 to 14 days. You may return to the ED or any clinic for removal. There was one wound, that is triangular in shape, that was not repaired with sutures, and is left to heal by his own intention. Please keep this area clean and dry, you may cleanse with regular soap and water. No vigorous scrubbing. Please try to avoid submerging the affected area in water for prolonged periods of time until the sutures are removed. You have been started on an antibiotic called Augmentin, due to these wounds being dog bites. Please take 1 tablet 2 times a day for 7 days, or until gone. This medication was electronically sent to the [facility] located near [facility]. You may try 500 mg Tylenol or 600 mg ibuprofen every 6 hours as needed for further pain relief. Please return to ED if your symptoms change or worsen. Sepsis Event Note (ED) - Evaluation Sepsis Screening Result: No Definite Risk - Focused Exam Vital Signs: Vital Signs Temp Pulse Resp BP Pulse Ox 08/03/20 18:35 97.5 F 101 H 14 127/77 100
== END 2020-08-03 21:05 | disposition home or self-care (01) ==
LOC: JD.ED 18:16
DX: S81.852A Open bite, left lower leg, initial encounter (principal); Z23 Encounter for immunization; E03.9 Hypothyroidism, unspecified; E66.9 Obesity, unspecified; Z68.30 Body mass index [BMI] 30.0-30.9, adult; Z79.899 Other long term (current) drug therapy; Z91.048 Other nonmedicinal substance allergy status; Z91.09 Other allergy status, other than to drugs and biological substances; W54.0XXA Bitten by dog, initial encounter
CPT/HCPCS: 12002; 90471; 90715; 99283; A9270

== ENCOUNTER 2021-05-09 20:35 | Emergency (ER) | payer OTHER ==
[2021-05-09 20:59] VITALS: BP 139/83; PULSE 109
[2021-05-09] MEDS ORDERED: Sodium Chloride 0.9% 1,000 ML IV STA (21:11)
[2021-05-09] MEDS ORDERED: Ondansetron 4 MG/2 ML SDV IVPUSH ONE (21:11)
[2021-05-09] MEDS ORDERED: HYDROmorphone 0.5 MG/0.5 ML Syringe IVPUSH ONE (21:11)
[2021-05-10 00:33] LABS: C. TRACHOMATIS BY PCR NOT DETECTED; N. GONORRHOEAE BY PCR NOT DETECTED
== END 2021-05-09 23:00 | disposition home or self-care (01) ==
LOC: JD.ED 20:35
DX: R10.2 Pelvic and perineal pain (principal); E03.9 Hypothyroidism, unspecified; E66.9 Obesity, unspecified; Z68.36 Body mass index [BMI] 36.0-36.9, adult; Z91.041 Radiographic dye allergy status; Z91.048 Other nonmedicinal substance allergy status; Z79.899 Other long term (current) drug therapy
CPT/HCPCS: 36415; 76830; 80053; 81001; 81025; 85025; 86140; 87491; 87591; 96374; 96375; 99284; J1170; J2405; J7030

== ENCOUNTER 2021-12-03 15:03 | Emergency (ER) | payer OTHER ==
[2021-12-03 15:22] VITALS: BP 137/97; PULSE 88
[2021-12-03] MEDS ORDERED: Ketorolac 30 MG/ML SDV IVPUSH ONE (15:49)
[2021-12-03] MEDS ORDERED: Ondansetron 4 MG/2 ML SDV IVPUSH ONE (15:49)
[2021-12-03] MEDS ORDERED: Lactated Ringers 1,000 ML IV ONE (15:49)
[2021-12-03] MEDS ORDERED: diphenhydrAMINE 50 MG/ML SDV IVPUSH ONE (15:49)
[2021-12-03] MEDS ORDERED: Ketorolac 30 MG/ML SDV IM ONE (16:50)
[2021-12-03] MEDS ORDERED: Ondansetron 4 MG Tab.DIS PO ONE (16:50)
[2021-12-03] MEDS ORDERED: diphenhydrAMINE 25 MG Cap PO ONE (16:57)
[2021-12-03] MEDS ORDERED: Metoclopramide 10 MG/2 ML SDV IM ONE (17:28)
== END 2021-12-03 19:19 | disposition home or self-care (01) ==
LOC: JD.ED 15:03
DX: G43.009 Migraine without aura, not intractable, without status migrainosus (principal); E66.9 Obesity, unspecified; Z68.37 Body mass index [BMI] 37.0-37.9, adult; Z79.899 Other long term (current) drug therapy; Z91.041 Radiographic dye allergy status; Z91.09 Other allergy status, other than to drugs and biological substances; Z91.048 Other nonmedicinal substance allergy status
CPT/HCPCS: 96372; 99283; A9270; J1885; J2765

== ENCOUNTER 2022-01-27 12:04 | Day surgery (SDC) | payer OTHER ==
[~2022-01-27 12:04] MED LIST changes: -Albuterol 0.083% 2.5 MG/3 ML Neb Soln NEB PRN; +Lactated Ringers 1,000 ML IV SCH; +Sodium Chloride 0.9% 10 ML Syringe FLUSH SCH
[2022-01-27] MEDS ORDERED: Propofol 200 MG/20 ML SDV ONE ×2 (12:37→13:20)
[2022-01-27] MEDS ORDERED: Lidocaine 1% 4 ML ONE (12:39)
[2022-01-27] MEDS ORDERED: diphenhydrAMINE 50 MG/ML SDV ONE (12:43)
[2022-01-27] MEDS ORDERED: Ondansetron 4 MG/2 ML SDV ONE (12:45)
[2022-01-27] MEDS ORDERED: Lactated Ringers 1,000 ML ONE (13:23)
[2022-01-27] MEDS ORDERED: Ondansetron 4 MG/2 ML SDV IVPUSH PRN (13:46)
[2022-01-27 14:17] VITALS: BP 102/64; PULSE 55
== END 2022-01-27 14:16 | disposition home or self-care (01) ==
LOC: JD.SDS 12:04
PROVIDERS: ATTEND Surgery
DX: K29.70 Gastritis, unspecified, without bleeding (principal); K21.9 Gastro-esophageal reflux disease without esophagitis; F41.9 Anxiety disorder, unspecified; E66.9 Obesity, unspecified; G43.909 Migraine, unspecified, not intractable, without status migrainosus; F31.81 Bipolar II disorder; E07.9 Disorder of thyroid, unspecified; J45.909 Unspecified asthma, uncomplicated; Z80.0 Family history of malignant neoplasm of digestive organs; Z98.890 Other specified postprocedural states; Z90.49 Acquired absence of other specified parts of digestive tract; Z79.899 Other long term (current) drug therapy; Z68.38 Body mass index [BMI] 38.0-38.9, adult; Z91.048 Other nonmedicinal substance allergy status; Z91.011 Allergy to milk products; Z79.84 Long term (current) use of oral hypoglycemic drugs
CPT/HCPCS: 43239; 45378; 81025; J1200; J2405; J2704; J7120

== ENCOUNTER 2022-02-12 20:21 | Emergency (ER) | payer OTHER ==
[2022-02-12 20:37] VITALS: BP 131/79; PULSE 72
[2022-02-12] MEDS ORDERED: Sodium Chloride 0.9% 1,000 ML IV STA (20:52)
[2022-02-12] MEDS ORDERED: Ondansetron 4 MG/2 ML SDV IVPUSH ONE (20:52)
[2022-02-12] MEDS ORDERED: HYDROmorphone 0.5 MG/0.5 ML Syringe IVPUSH ONE (20:53)
[2022-02-12] MEDS ORDERED: diphenhydrAMINE 50 MG/ML SDV IVPUSH ONE (20:53)
[2022-02-12] MEDS ORDERED: Ketorolac 30 MG/ML SDV IVPUSH ONE (22:28)
== END 2022-02-12 23:03 | disposition home or self-care (01) ==
LOC: JD.ED 20:21
DX: S09.90XA Unspecified injury of head, initial encounter (principal); M54.2 Cervicalgia; M54.6 Pain in thoracic spine; E03.9 Hypothyroidism, unspecified; E66.9 Obesity, unspecified; Z68.34 Body mass index [BMI] 34.0-34.9, adult; Z91.011 Allergy to milk products; Z91.018 Allergy to other foods; Z88.8 Allergy status to other drugs, medicaments and biological substances; Z91.041 Radiographic dye allergy status; Z79.899 Other long term (current) drug therapy; W00.0XXA Fall on same level due to ice and snow, initial encounter
CPT/HCPCS: 72128; 96361; 96374; 96375; 99283; J1170; J1200; J1885; J2405; J7030; 70450; 70450-26; 72125; 72125-26

== ENCOUNTER 2023-02-22 18:50 | Emergency (ER) | payer OTHER ==
[2023-02-22] MEDS ORDERED: Sodium Chloride 0.9% 10 ML Syringe FLUSH PRN (19:31)
[2023-02-22 20:10] LABS: APPEARANCE,URINE CLOUDY (Clear); BILIRUBIN,URINE NEGATIVE (Negative); COLOR,URINE YELLOW (Yellow); GLUCOSE,URINE NEGATIVE (Negative); KETONES,URINE NEGATIVE (Negative); LEUKOCYTE ESTERASE,URINE NEGATIVE (Negative); NITRITE,URINE NEGATIVE (Negative); OCCULT BLOOD,URINE TRACE-INTACT (Negative); PH,URINE 7.5 (5.0-8.0); PROTEIN,URINE NEGATIVE (Negative)
[2023-02-22 20:17] LABS: BASOPHILS ABSOLUTE AUTO 0.1 K/mm3 (0.0-0.2); BASOPHILS PERCENT AUTO 0.7 % (0.0-1.0); EOSINOPHILS ABSOLUTE AUTO 0.2 K/mm3 (0.0-0.4); EOSINOPHILS PERCENT AUTO 2.6 % (0.0-6.0); HEMATOCRIT 41.4 % (37.0-47.0); HEMOGLOBIN 14.2 gm/dl (12.0-16.0); IMMATURE GRAN ABSOLUTE AUTO 0.02 K/mm3 (0.00-0.05); IMMATURE GRAN PERCENT AUTO 0.2 % (0.0-0.4); LYMPHOCYTES ABSOLUTE AUTO 2.6 K/mm3 (1.0-4.8); LYMPHOCYTES PERCENT AUTO 31.4 % (24.0-44.0); MEAN CORPUSCULAR HEMOGLOBIN 29.7 pg (28.0-32.0); MEAN CORPUSCULAR HGB CONC 34.3 g/dl (32.0-36.0); MEAN CORPUSCULAR VOLUME 86.6 fl (83.0-99.0); MONOCYTES ABSOLUTE AUTO 0.6 K/mm3 (0.0-0.8); MONOCYTES PERCENT AUTO 7.1 % (0.0-8.0); NEUTROPHILS ABSOLUTE AUTO 4.9 K/mm3 (1.8-7.7); PLATELET COUNT,PLT 278 K/mm3 (150-400); RED BLOOD CELL COUNT 4.78 M/mm3 (4.10-5.30); WHITE BLOOD CELL COUNT,WBC 8.41 K/mm3 (3.9-11.3)
[2023-02-22 20:18] LABS: AMORPHOUS SEDIMENT,URINE MANY /hpf (NOT SEEN); BACTERIA,URINE FEW /hpf (FEW); MUCUS,URINE FEW /hpf (FEW); RBC,URINE 0-5 /hpf (0-5); WBC,URINE 0-5 /hpf (0-5)
[2023-02-22 20:41] LABS: A/G RATIO 1.2 (1-2); ALANINE AMINOTRANSFERASE,ALT 20 U/L (14-59); ALBUMIN 3.7 g/dl (3.4-5.0); ALKALINE PHOSPHATASE 69 U/L (46-116); ANION GAP 14.6 (5-15); ASPARTATE AMNIOTRANSFERASE,AST 13 U/L (15-37); BILIRUBIN TOTAL 0.7 mg/dL (0.2-1.0); BLOOD UREA NITROGEN,BUN 9 mg/dL (7-18); CALCIUM 8.9 mg/dL (8.5-10.1); CARBON DIOXIDE,CO2 22 mEq/L (21-32); CHLORIDE,CL 108 mEq/L (98-107); CREATININE 0.9 mg/dL (0.55-1.02); EST CRCL DRUG DOSING (CG) 81.08 mL/min; ESTIMATED GFR 90 mL/min (>60); GLUCOSE RANDOM 93 mg/dL (70-99); MAGNESIUM 1.9 mg/dL (1.8-2.4); POTASSIUM,K 3.6 mEq/L (3.5-5.1); PROTEIN TOTAL,TP 6.9 g/dl (6.4-8.2); SODIUM,NA 141 mEq/L (136-145)
[2023-02-22 20:42] LABS: TROPONIN I HIGH SENSITIVITY < 4 pg/mL (<=51)
[2023-02-22] MEDS ORDERED: Lactated Ringers 1,000 ML IV ONE (21:06)
[2023-02-23 01:57] VITALS: BP 132/85; PULSE 42
== END 2023-02-23 01:45 | disposition home or self-care (01) ==
LOC: JD.ED 18:50
DX: R00.1 Bradycardia, unspecified (principal); E03.9 Hypothyroidism, unspecified; E66.9 Obesity, unspecified; Z68.39 Body mass index [BMI] 39.0-39.9, adult; Z91.011 Allergy to milk products; Z88.8 Allergy status to other drugs, medicaments and biological substances; Z91.048 Other nonmedicinal substance allergy status; Z91.018 Allergy to other foods; Z91.041 Radiographic dye allergy status; Z79.899 Other long term (current) drug therapy; Z90.49 Acquired absence of other specified parts of digestive tract
CPT/HCPCS: 36415; 71046; 71046-26; 80053; 81001; 83735; 84484; 85025; 93005; 93010; 99284; J3490; J7120

== ENCOUNTER 2023-04-18 17:41 | Emergency (ER) | payer OTHER ==
[2023-04-18 18:57] LABS: BASOPHILS ABSOLUTE AUTO 0.1 K/mm3 (0.0-0.2); BASOPHILS PERCENT AUTO 0.8 % (0.0-1.0); EOSINOPHILS ABSOLUTE AUTO 0.2 K/mm3 (0.0-0.4); HEMATOCRIT 42.7 % (37.0-47.0); HEMOGLOBIN 14.7 gm/dl (12.0-16.0); IMMATURE GRAN ABSOLUTE AUTO 0.02 K/mm3 (0.00-0.05); IMMATURE GRAN PERCENT AUTO 0.3 % (0.0-0.4); LYMPHOCYTES ABSOLUTE AUTO 2.4 K/mm3 (1.0-4.8); LYMPHOCYTES PERCENT AUTO 30.1 % (24.0-44.0); MEAN CORPUSCULAR HEMOGLOBIN 29.8 pg (28.0-32.0); MEAN CORPUSCULAR HGB CONC 34.4 g/dl (32.0-36.0); MEAN CORPUSCULAR VOLUME 86.6 fl (83.0-99.0); MONOCYTES ABSOLUTE AUTO 0.6 K/mm3 (0.0-0.8); MONOCYTES PERCENT AUTO 7.7 % (0.0-8.0); NEUTROPHILS ABSOLUTE AUTO 4.7 K/mm3 (1.8-7.7); NEUTROPHILS PERCENT AUTO 59.1 % (41.0-71.0); PLATELET COUNT,PLT 311 K/mm3 (150-400); RED BLOOD CELL COUNT 4.93 M/mm3 (4.10-5.30); WHITE BLOOD CELL COUNT,WBC 7.94 K/mm3 (3.9-11.3)
[2023-04-18] MEDS ORDERED: Sodium Chloride 0.9% 100 ML IV SCH (19:00)
[2023-04-18] MEDS: Sodium Chloride 0.9% 10 ML Syringe FLUSH PRN (19:22)
[2023-04-18] MEDS: Iopamidol 755 Mg/ML 100 ML Bottle IVPUSH ONE (19:30)
[2023-04-18 19:32] LABS: A/G RATIO 1.3 (1-2); ALBUMIN 3.7 g/dl (3.4-5.0); ANION GAP 15.8 (5-15); BILIRUBIN TOTAL 0.6 mg/dL (0.2-1.0); CALCIUM 8.7 mg/dL (8.5-10.1); CREATININE 0.7 mg/dL (0.55-1.02); EST CRCL DRUG DOSING (CG) 104.24 mL/min; POTASSIUM,K 3.8 mEq/L (3.5-5.1); PROTEIN TOTAL,TP 6.5 g/dl (6.4-8.2)
[2023-04-18 19:39] LABS: CORONAVIRUS COVID-19 NAA NEGATIVE (NEGATIVE); INFLUENZA A NAA NEGATIVE (NEGATIVE); RESPIRATORY SYNCYTIAL VIR NAA NEGATIVE (NEGATIVE)
[2023-04-18] MEDS ORDERED: predniSONE 20 MG Tab PO ONE (21:11)
[2023-04-18 21:24] VITALS: BP 113/78; PULSE 46
== END 2023-04-18 21:24 | disposition home or self-care (01) ==
LOC: JD.ED 17:41
DX: R07.89 Other chest pain (principal); J45.909 Unspecified asthma, uncomplicated; E03.9 Hypothyroidism, unspecified; E66.9 Obesity, unspecified; Z79.899 Other long term (current) drug therapy; Z79.84 Long term (current) use of oral hypoglycemic drugs; Z91.018 Allergy to other foods; Z91.048 Other nonmedicinal substance allergy status; Z91.011 Allergy to milk products; Z88.8 Allergy status to other drugs, medicaments and biological substances; Z68.39 Body mass index [BMI] 39.0-39.9, adult
CPT/HCPCS: 0241U; 36415; 71275; 80053; 84484; 85025; 93005; 99285; J3490; Q9967

== ENCOUNTER 2023-06-21 12:35 | Emergency (ER) | payer OTHER ==
[2023-06-21] MEDS: HYDROmorphone 1 MG/ML Syringe IM ONE (14:15)
[2023-06-21] MEDS: HYDROmorphone 1 MG/ML Syringe IVPUSH ONE (14:17)
[2023-06-21 15:24] VITALS: BP 121/75; PULSE 58
== END 2023-06-21 15:15 | disposition home or self-care (01) ==
LOC: JD.ED 12:35
DX: S06.0X0A Concussion without loss of consciousness, initial encounter (principal); M54.2 Cervicalgia; E03.9 Hypothyroidism, unspecified; E66.9 Obesity, unspecified; Z68.37 Body mass index [BMI] 37.0-37.9, adult; Z91.048 Other nonmedicinal substance allergy status; Z91.011 Allergy to milk products; Z88.8 Allergy status to other drugs, medicaments and biological substances; Z91.041 Radiographic dye allergy status; Z91.018 Allergy to other foods; Z79.899 Other long term (current) drug therapy; Z79.84 Long term (current) use of oral hypoglycemic drugs; Z90.49 Acquired absence of other specified parts of digestive tract; W01.10XA Fall on same level from slipping, tripping and stumbling with subsequent striking against unspecified object, initial encounter
CPT/HCPCS: 70450; 72125; 96374; 99285; J1170; 99283

== ENCOUNTER 2023-08-10 14:57 | Emergency (ER) | payer OTHER ==
[2023-08-10] MEDS: Ketorolac 30 MG/ML SDV IVPUSH ONE (15:46)
[2023-08-10] MEDS: Sodium Chloride 0.9% 10 ML Syringe FLUSH PRN (15:47)
[2023-08-10 15:58] LABS: BASOPHILS ABSOLUTE AUTO 0.1 K/mm3 (0.0-0.2); BASOPHILS PERCENT AUTO 0.9 % (0.0-1.0); EOSINOPHILS ABSOLUTE AUTO 0.2 K/mm3 (0.0-0.4); HEMATOCRIT 42.8 % (37.0-47.0); HEMOGLOBIN 14.5 gm/dl (12.0-16.0); IMMATURE GRAN ABSOLUTE AUTO 0.02 K/mm3 (0.00-0.05); IMMATURE GRAN PERCENT AUTO 0.3 % (0.0-0.4); LYMPHOCYTES ABSOLUTE AUTO 2.3 K/mm3 (1.0-4.8); LYMPHOCYTES PERCENT AUTO 32.1 % (24.0-44.0); MEAN CORPUSCULAR HEMOGLOBIN 29.2 pg (28.0-32.0); MEAN CORPUSCULAR HGB CONC 33.9 g/dl (32.0-36.0); MEAN CORPUSCULAR VOLUME 86.1 fl (83.0-99.0); MEAN PLATELET VOLUME 9.4 fl (9.4-12.3); MONOCYTES ABSOLUTE AUTO 0.6 K/mm3 (0.0-0.8); MONOCYTES PERCENT AUTO 8.1 % (0.0-8.0); NEUTROPHILS ABSOLUTE AUTO 3.9 K/mm3 (1.8-7.7); NEUTROPHILS PERCENT AUTO 55.6 % (41.0-71.0); PLATELET COUNT,PLT 318 K/mm3 (150-400); RED BLOOD CELL COUNT 4.97 M/mm3 (4.10-5.30)
[2023-08-10 16:27] LABS: A/G RATIO 1.2 (1-2); ALANINE AMINOTRANSFERASE,ALT 19 U/L (14-59); ALBUMIN 3.6 g/dl (3.4-5.0); ALKALINE PHOSPHATASE 69 U/L (46-116); ANION GAP 13.9 (5-15); ASPARTATE AMNIOTRANSFERASE,AST 11 U/L (15-37); BILIRUBIN TOTAL 0.7 mg/dL (0.2-1.0); BLOOD UREA NITROGEN,BUN 9 mg/dL (7-18); C-REACTIVE PROTEIN 0.09 mg/dL (<0.30); CARBON DIOXIDE,CO2 22 mEq/L (21-32); CHLORIDE,CL 106 mEq/L (98-107); CREATININE 0.9 mg/dL (0.55-1.02); EST CRCL DRUG DOSING (CG) 81.08 mL/min; ESTIMATED GFR 90 mL/min (>60); GLUCOSE RANDOM 97 mg/dL (70-99); POTASSIUM,K 3.9 mEq/L (3.5-5.1); PROTEIN TOTAL,TP 6.7 g/dl (6.4-8.2); SODIUM,NA 138 mEq/L (136-145)
[2023-08-10 16:34] LABS: TROPONIN I HIGH SENSITIVITY < 4 pg/mL (<=51)
[2023-08-10] MEDS: predniSONE 10 MG Tab PO ONE (17:40)
[2023-08-10 19:24] VITALS: BP 111/71; PULSE 47
== END 2023-08-10 17:42 | disposition home or self-care (01) ==
LOC: JD.ED 14:57
DX: R07.89 Other chest pain (principal); E03.9 Hypothyroidism, unspecified; J45.909 Unspecified asthma, uncomplicated; E66.9 Obesity, unspecified; Z79.899 Other long term (current) drug therapy; Z79.84 Long term (current) use of oral hypoglycemic drugs; Z79.01 Long term (current) use of anticoagulants; Z91.048 Other nonmedicinal substance allergy status; Z91.018 Allergy to other foods; Z91.011 Allergy to milk products; Z91.014 Allergy to mammalian meats; Z68.38 Body mass index [BMI] 38.0-38.9, adult
CPT/HCPCS: 36415; 71046; 80053; 84484; 84703; 85025; 85379; 86140; 93005; 96374; 99285; J1885; J3490; J7512

== ENCOUNTER 2024-02-14 19:48 | Emergency (ER) | payer OTHER ==
[2024-02-14 20:09] VITALS: BP 126/82; PULSE 74
[2024-02-14 20:33] LABS: BASOPHILS ABSOLUTE AUTO 0.1 K/mm3 (0.0-0.2); BASOPHILS PERCENT AUTO 0.8 % (0.0-1.0); EOSINOPHILS ABSOLUTE AUTO 0.2 K/mm3 (0.0-0.4); EOSINOPHILS PERCENT AUTO 2.2 % (0.0-6.0); HEMOGLOBIN 14.6 gm/dl (12.0-16.0); IMMATURE GRAN ABSOLUTE AUTO 0.02 K/mm3 (0.00-0.05); IMMATURE GRAN PERCENT AUTO 0.2 % (0.0-0.4); LYMPHOCYTES ABSOLUTE AUTO 3.1 K/mm3 (1.0-4.8); LYMPHOCYTES PERCENT AUTO 35.4 % (24.0-44.0); MEAN CORPUSCULAR HEMOGLOBIN 29.7 pg (28.0-32.0); MEAN CORPUSCULAR HGB CONC 33.2 g/dl (32.0-36.0); MEAN CORPUSCULAR VOLUME 89.4 fl (83.0-99.0); MEAN PLATELET VOLUME 9.4 fl (9.4-12.3); MONOCYTES ABSOLUTE AUTO 0.7 K/mm3 (0.0-0.8); NEUTROPHILS ABSOLUTE AUTO 4.6 K/mm3 (1.8-7.7); NEUTROPHILS PERCENT AUTO 53.4 % (41.0-71.0); PLATELET COUNT,PLT 311 K/mm3 (150-400); RED BLOOD CELL COUNT 4.92 M/mm3 (4.10-5.30)
[2024-02-14 20:58] LABS: A/G RATIO 1.2 (1-2); ALBUMIN 3.8 g/dl (3.4-5.0); ANION GAP 16.7 (5-15); BILIRUBIN TOTAL 0.5 mg/dL (0.2-1.0); CALCIUM 8.4 mg/dL (8.5-10.1); CREATININE 0.9 mg/dL (0.55-1.02); EST CRCL DRUG DOSING (CG) 80.36 mL/min; MAGNESIUM 1.9 mg/dL (1.8-2.4); POTASSIUM,K 3.7 mEq/L (3.5-5.1); PROTEIN TOTAL,TP 6.9 g/dl (6.4-8.2)
[2024-02-14] MEDS: Sodium Chloride 0.9% 1,000 ML IV ONE (21:15)
[2024-02-14] MEDS: Ondansetron 4 MG/2 ML SDV IVPUSH ONE (21:20)
[2024-02-14] MEDS: diphenhydrAMINE 50 MG/ML SDV IVPUSH ONE (21:21)
[2024-02-14] MEDS: SUMAtriptan 6 MG/0.5 ML SDV SUBCUT ONE (23:11)
== END 2024-02-14 23:45 | disposition home or self-care (01) ==
LOC: JD.ED 19:48
DX: R51.9 Headache, unspecified (principal); J45.909 Unspecified asthma, uncomplicated; E03.9 Hypothyroidism, unspecified; E66.9 Obesity, unspecified; Z90.49 Acquired absence of other specified parts of digestive tract; Z88.8 Allergy status to other drugs, medicaments and biological substances; Z91.011 Allergy to milk products; Z91.048 Other nonmedicinal substance allergy status; Z91.041 Radiographic dye allergy status; Z79.84 Long term (current) use of oral hypoglycemic drugs; Z79.51 Long term (current) use of inhaled steroids; Z79.01 Long term (current) use of anticoagulants; Z79.890 Hormone replacement therapy; Z79.899 Other long term (current) drug therapy; Z68.38 Body mass index [BMI] 38.0-38.9, adult
CPT/HCPCS: 36415; 70450; 70450-26; 80053; 83735; 85025; 96361; 96372; 96374; 96375; 99284-25; J1200; J2405; J3030; J7030

== ENCOUNTER 2024-05-10 17:06 | Emergency (ER) | payer BC, OTHER ==
[2024-05-10] MEDS: diphenhydrAMINE 50 MG/ML SDV IVPUSH ONE (18:18)
[2024-05-10] MEDS: Sodium Chloride 0.9% 10 ML Syringe FLUSH PRN (18:20)
[2024-05-10] MEDS: droPERidol 2.5 MG/ML SDV IV ONE (18:21)
[2024-05-10] MEDS: Sodium Chloride 0.9% 1,000 ML IV ONE (18:24)
[2024-05-10 18:44] LABS: BASOPHILS ABSOLUTE AUTO 0.1 K/mm3 (0.0-0.2); BASOPHILS PERCENT AUTO 0.9 % (0.0-1.0); EOSINOPHILS ABSOLUTE AUTO 0.2 K/mm3 (0.0-0.4); EOSINOPHILS PERCENT AUTO 2.3 % (0.0-6.0); HEMATOCRIT 46.4 % (37.0-47.0); HEMOGLOBIN 15.6 gm/dl (12.0-16.0); IMMATURE GRAN ABSOLUTE AUTO 0.03 K/mm3 (0.00-0.05); IMMATURE GRAN PERCENT AUTO 0.3 % (0.0-0.4); LYMPHOCYTES ABSOLUTE AUTO 2.6 K/mm3 (1.0-4.8); LYMPHOCYTES PERCENT AUTO 27.5 % (24.0-44.0); MEAN CORPUSCULAR HEMOGLOBIN 29.5 pg (28.0-32.0); MEAN CORPUSCULAR HGB CONC 33.6 g/dl (32.0-36.0); MEAN CORPUSCULAR VOLUME 87.7 fl (83.0-99.0); MEAN PLATELET VOLUME 9.6 fl (9.4-12.3); MONOCYTES ABSOLUTE AUTO 0.5 K/mm3 (0.0-0.8); MONOCYTES PERCENT AUTO 5.8 % (0.0-8.0); NEUTROPHILS ABSOLUTE AUTO 5.9 K/mm3 (1.8-7.7); NEUTROPHILS PERCENT AUTO 63.2 % (41.0-71.0); PLATELET COUNT,PLT 246 K/mm3 (150-400); RED BLOOD CELL COUNT 5.29 M/mm3 (4.10-5.30); WHITE BLOOD CELL COUNT,WBC 9.39 K/mm3 (3.9-11.3)
[2024-05-10 19:11] LABS: A/G RATIO 1.1 (1-2); ALBUMIN 3.9 g/dl (3.4-5.0); ANION GAP 14.8 (5-15); CALCIUM 8.7 mg/dL (8.5-10.1); EST CRCL DRUG DOSING (CG) 72.32 mL/min; PROTEIN TOTAL,TP 7.4 g/dl (6.4-8.2)
[2024-05-10 19:14] VITALS: BP 113/78; PULSE 80
[2024-05-10 19:17] LABS: POTASSIUM,K 3.8 mEq/L (3.5-5.1)
== END 2024-05-10 19:38 | disposition home or self-care (01) ==
LOC: JD.ED 17:06
DX: M79.10 Myalgia, unspecified site (principal); R51.9 Headache, unspecified; J45.909 Unspecified asthma, uncomplicated; E03.9 Hypothyroidism, unspecified; E66.9 Obesity, unspecified; Z68.38 Body mass index [BMI] 38.0-38.9, adult; Z91.018 Allergy to other foods; Z88.8 Allergy status to other drugs, medicaments and biological substances; Z91.048 Other nonmedicinal substance allergy status; Z79.899 Other long term (current) drug therapy
CPT/HCPCS: 36415; 80053; 84703; 85025; 87428-QW; 96361; 96374; 96375; 99283; 99283-25; J1200; J1790; J7030

== ENCOUNTER 2024-08-08 16:13 | Emergency (ER) | payer OTHER ==
[2024-08-08] MEDS: Sodium Chloride 0.9% 100 ML IV SCH (17:38)
[2024-08-08] MEDS: Iopamidol 755 Mg/ML 100 ML Bottle IVPUSH ONE (17:38)
[2024-08-08 17:42] LABS: BASOPHILS ABSOLUTE AUTO 0.1 K/mm3 (0.0-0.2); BASOPHILS PERCENT AUTO 0.5 % (0.0-1.0); EOSINOPHILS ABSOLUTE AUTO 0.6 K/mm3 (0.0-0.4); EOSINOPHILS PERCENT AUTO 6.3 % (0.0-6.0); HEMATOCRIT 43.8 % (37.0-47.0); IMMATURE GRAN ABSOLUTE AUTO 0.03 K/mm3 (0.00-0.05); IMMATURE GRAN PERCENT AUTO 0.3 % (0.0-0.4); LYMPHOCYTES ABSOLUTE AUTO 2.3 K/mm3 (1.0-4.8); LYMPHOCYTES PERCENT AUTO 23.2 % (24.0-44.0); MEAN CORPUSCULAR HEMOGLOBIN 29.4 pg (28.0-32.0); MEAN CORPUSCULAR HGB CONC 34.2 g/dl (32.0-36.0); MEAN CORPUSCULAR VOLUME 85.7 fl (83.0-99.0); MEAN PLATELET VOLUME 10.2 fl (9.4-12.3); MONOCYTES ABSOLUTE AUTO 0.6 K/mm3 (0.0-0.8); MONOCYTES PERCENT AUTO 6.3 % (0.0-8.0); NEUTROPHILS ABSOLUTE AUTO 6.3 K/mm3 (1.8-7.7); NEUTROPHILS PERCENT AUTO 63.4 % (41.0-71.0); PLATELET COUNT,PLT 206 K/mm3 (150-400); RED BLOOD CELL COUNT 5.11 M/mm3 (4.10-5.30); WHITE BLOOD CELL COUNT,WBC 9.93 K/mm3 (3.9-11.3)
[2024-08-08] MEDS: Albuterol/Ipratropium 3.0-0.5 MG/3 ML Neb Soln NEB ONE (18:16)
[2024-08-08 18:22] LABS: ALBUMIN 3.5 g/dl (3.4-5.0); ALKALINE PHOSPHATASE 88 U/L (46-116); SODIUM,NA 140 mEq/L (136-145)
[2024-08-08] MEDS: Sodium Chloride 0.9% 1,000 ML IV SCH (19:00)
[2024-08-08 19:12] LABS: A/G RATIO 1.1 (1-2); ALANINE AMINOTRANSFERASE,ALT 20 U/L (14-59); ANION GAP 14.3 (5-15); ASPARTATE AMNIOTRANSFERASE,AST 12 U/L (15-37); BILIRUBIN TOTAL 0.5 mg/dL (0.2-1.0); BLOOD UREA NITROGEN,BUN 13 mg/dL (7-18); BUN/CREATININE RATIO 14.4 (14-18); CARBON DIOXIDE,CO2 23 mEq/L (21-32); CHLORIDE,CL 106 mEq/L (98-107); CREATININE 0.9 mg/dL (0.55-1.02); EST CRCL DRUG DOSING (CG) 80.36 mL/min; ESTIMATED GFR 89 mL/min (>60); GLUCOSE RANDOM 84 mg/dL (70-99); POTASSIUM,K 3.3 mEq/L (3.5-5.1); PROTEIN TOTAL,TP 6.7 g/dl (6.4-8.2); TROPONIN I HIGH SENSITIVITY < 4 pg/mL (<=51)
[2024-08-08] MEDS: Apixaban 5 MG Tab PO ONE (19:25)
[2024-08-08 19:33] VITALS: BP 111/59; PULSE 58
== END 2024-08-08 19:32 | disposition home or self-care (01) ==
LOC: JD.ED 16:13
DX: R06.02 Shortness of breath (principal); D68.51 Activated protein C resistance; J45.909 Unspecified asthma, uncomplicated; E66.9 Obesity, unspecified; E03.9 Hypothyroidism, unspecified; Z79.899 Other long term (current) drug therapy; Z79.84 Long term (current) use of oral hypoglycemic drugs; Z79.890 Hormone replacement therapy; Z91.048 Other nonmedicinal substance allergy status; Z91.018 Allergy to other foods; Z91.011 Allergy to milk products; Z88.8 Allergy status to other drugs, medicaments and biological substances
CPT/HCPCS: 36415; 71275; 71275-26; 80053; 84484; 85025; 93005; 93010; 94640; 99284; 99285; A9270-GY; J7030; Q9967

== ENCOUNTER 2024-11-01 20:19 | Inpatient (IN) | payer OTHER ==
[2024-11-01 20:49] LABS: BASOPHILS ABSOLUTE AUTO 0.1 K/mm3 (0.0-0.2); BASOPHILS PERCENT AUTO 0.8 % (0.0-1.0); EOSINOPHILS ABSOLUTE AUTO 0.3 K/mm3 (0.0-0.4); EOSINOPHILS PERCENT AUTO 3.6 % (0.0-6.0); IMMATURE GRAN ABSOLUTE AUTO 0.03 K/mm3 (0.00-0.05); IMMATURE GRAN PERCENT AUTO 0.3 % (0.0-0.4); LYMPHOCYTES ABSOLUTE AUTO 3.1 K/mm3 (1.0-4.8); LYMPHOCYTES PERCENT AUTO 34.7 % (24.0-44.0); MEAN PLATELET VOLUME 9.3 fl (9.4-12.3); MONOCYTES ABSOLUTE AUTO 0.7 K/mm3 (0.0-0.8); MONOCYTES PERCENT AUTO 7.8 % (0.0-8.0); NEUTROPHILS ABSOLUTE AUTO 4.8 K/mm3 (1.8-7.7); NEUTROPHILS PERCENT AUTO 52.8 % (41.0-71.0); NRBC ABSOLUTE 0.00 (0.00-0.02); NRBC PERCENT 0.0 % (0.0-0.2); PLATELET COUNT,PLT 345 K/mm3 (150-400); RED BLOOD CELL COUNT 5.05 M/mm3 (4.10-5.30); WHITE BLOOD CELL COUNT,WBC 9.06 K/mm3 (3.9-11.3)
[2024-11-01] MEDS: Iopamidol 755 Mg/ML 100 ML Bottle IVPUSH ONE (21:01)
[2024-11-01] MEDS: Sodium Chloride 0.9% 10 ML Syringe FLUSH ONE (21:01)
[2024-11-01 21:10] LABS: INR 0.93
[2024-11-01 21:11] LABS: A/G RATIO 1.1 (1-2); ALANINE AMINOTRANSFERASE,ALT 24 U/L (14-59); ASPARTATE AMNIOTRANSFERASE,AST 11 U/L (15-37); BILIRUBIN TOTAL 0.4 mg/dL (0.2-1.0); BLOOD UREA NITROGEN,BUN 12 mg/dL (7-18); CARBON DIOXIDE,CO2 25 mEq/L (21-32); CHLORIDE,CL 109 mEq/L (98-107); CREATININE 0.8 mg/dL (0.55-1.02); EST CRCL DRUG DOSING (CG) 90.41 mL/min; ESTIMATED GFR 103 mL/min (>60); GLUCOSE RANDOM 98 mg/dL (70-99); POTASSIUM,K 3.8 mEq/L (3.5-5.1); PROTEIN TOTAL,TP 6.9 g/dl (6.4-8.2); SODIUM,NA 144 mEq/L (136-145)
[2024-11-01 21:12] LABS: HCG QUANTITATIVE < 1.0 mIU/mL; TROPONIN I HIGH SENSITIVITY < 4 pg/mL (<=51)
[2024-11-01] MEDS: Ondansetron 4 MG/2 ML SDV IVPUSH ONE (21:15)
[2024-11-01] MEDS: diphenhydrAMINE 50 MG/ML SDV IVPUSH ONE (21:51)
[2024-11-01 22:18] LABS: APPEARANCE,URINE CLEAR (Clear); GLUCOSE,URINE NEGATIVE (Negative); OCCULT BLOOD,URINE NEGATIVE (Negative)
[2024-11-01 22:27] LABS: EPITHELIAL CELLS,URINE 0-5 /hpf (0-5)
[2024-11-02] MEDS ORDERED: Naloxone 0.4 MG/ML SDV IVPUSH PRN (01:27)
[2024-11-02] MEDS: Ondansetron 4 MG/2 ML SDV IV PRN (03:04)
[2024-11-02 04:12] LABS: BASOPHILS ABSOLUTE AUTO 0.1 K/mm3 (0.0-0.2); BASOPHILS PERCENT AUTO 0.8 % (0.0-1.0); EOSINOPHILS ABSOLUTE AUTO 0.3 K/mm3 (0.0-0.4); EOSINOPHILS PERCENT AUTO 3.2 % (0.0-6.0); IMMATURE GRAN ABSOLUTE AUTO 0.03 K/mm3 (0.00-0.05); IMMATURE GRAN PERCENT AUTO 0.4 % (0.0-0.4); LYMPHOCYTES ABSOLUTE AUTO 2.8 K/mm3 (1.0-4.8); LYMPHOCYTES PERCENT AUTO 33.3 % (24.0-44.0); MEAN PLATELET VOLUME 9.2 fl (9.4-12.3); MONOCYTES ABSOLUTE AUTO 0.8 K/mm3 (0.0-0.8); MONOCYTES PERCENT AUTO 9.5 % (0.0-8.0); NEUTROPHILS ABSOLUTE AUTO 4.5 K/mm3 (1.8-7.7); NEUTROPHILS PERCENT AUTO 52.8 % (41.0-71.0); NRBC ABSOLUTE 0.00 (0.00-0.02); NRBC PERCENT 0.0 % (0.0-0.2); PLATELET COUNT,PLT 296 K/mm3 (150-400); RED BLOOD CELL COUNT 4.46 M/mm3 (4.10-5.30); WHITE BLOOD CELL COUNT,WBC 8.45 K/mm3 (3.9-11.3)
[2024-11-02 04:46] LABS: BLOOD UREA NITROGEN,BUN 12.0 mg/dL (7-18); CARBON DIOXIDE,CO2 28.0 mEq/L (21-32); CHLORIDE,CL 109.0 mEq/L (98-107); CHOLESTEROL HDL 39.0 mg/dL (40-59); CHOLESTEROL LDL DIRECT 149.0 mg/dL (<100); CHOLESTEROL TOTAL 207.0 mg/dL (<200); CREATININE 1.0 mg/dL (0.55-1.02); EST CRCL DRUG DOSING (CG) 72.32 mL/min; ESTIMATED GFR 79.0 mL/min (>60); GLUCOSE RANDOM 99.0 mg/dL (70-99); POTASSIUM,K 4.1 mEq/L (3.5-5.1); SODIUM,NA 141.0 mEq/L (136-145); TSH 5.349 uIU/mL (0.358-3.74)
[2024-11-02 05:29] LABS: T4 FREE 0.73 ng/dL (0.76-1.46)
[2024-11-02] MEDS: SUMAtriptan 6 MG/0.5 ML SDV SUBCUT ONE (10:21)
[2024-11-03 10:07] VITALS: BP 111/76; PULSE 70
== END 2024-11-02 13:45 | disposition home or self-care (01) | DRG 103 ==
LOC: JD.ED 20:19 → JD.ICU 11-02 00:55
PROVIDERS: ADMIT Family Medicine; ATTEND Family Medicine
DX: G43.109 Migraine with aura, not intractable, without status migrainosus (principal); D68.51 Activated protein C resistance; Z68.41 Body mass index [BMI] 40.0-44.9, adult; H54.7 Unspecified visual loss; J45.909 Unspecified asthma, uncomplicated; F41.9 Anxiety disorder, unspecified; F32.A Depression, unspecified; E03.9 Hypothyroidism, unspecified; E66.9 Obesity, unspecified; E78.00 Pure hypercholesterolemia, unspecified; I10 Essential (primary) hypertension; Z91.011 Allergy to milk products; Z88.8 Allergy status to other drugs, medicaments and biological substances; Z86.718 Personal history of other venous thrombosis and embolism; Z91.018 Allergy to other foods; Z91.041 Radiographic dye allergy status; Z79.899 Other long term (current) drug therapy; Z79.84 Long term (current) use of oral hypoglycemic drugs; Z90.89 Acquired absence of other organs; Z90.49 Acquired absence of other specified parts of digestive tract; Z98.890 Other specified postprocedural states; Z79.52 Long term (current) use of systemic steroids; Z79.890 Hormone replacement therapy; Z79.01 Long term (current) use of anticoagulants
CPT/HCPCS: 36415; 70450; 70450-26; 70496; 70496-26; 70498; 70498-26; 70551; 70551-26; 71045; 71045-26; 80048; 80053; 80061; 81001; 82947; 83036; 84439; 84443; 84484; 84702; 85025; 85610; 85730; 93005; 96365; 96375; 99285-25; A9270-GY; J0780; J1171; J1200; J2405; J3030; Q9967

== ENCOUNTER 2024-11-03 00:02 | Emergency (ER) | payer OTHER ==
[2024-11-03 00:12] VITALS: PULSE 102
[2024-11-03 00:49] VITALS: BP 121/80
== END 2024-11-03 00:40 | disposition home or self-care (01) ==
LOC: JD.ED 00:02
DX: G43.909 Migraine, unspecified, not intractable, without status migrainosus (principal); E03.9 Hypothyroidism, unspecified; R00.0 Tachycardia, unspecified; Z91.048 Other nonmedicinal substance allergy status; Z91.011 Allergy to milk products; Z91.041 Radiographic dye allergy status; Z91.038 Other insect allergy status; Z79.899 Other long term (current) drug therapy; Z79.01 Long term (current) use of anticoagulants; Z90.49 Acquired absence of other specified parts of digestive tract
CPT/HCPCS: 99284

== ENCOUNTER 2024-12-25 13:53 | Emergency (ER) | payer OTHER ==
[2024-12-25 14:46] VITALS: PULSE 62
[2024-12-25] MEDS ORDERED: Sodium Chloride 0.9% 10 ML Syringe FLUSH PRN (14:57)
[2024-12-25 15:04] LABS: BASOPHILS ABSOLUTE AUTO 0.1 K/mm3 (0.0-0.2); BASOPHILS PERCENT AUTO 0.8 % (0.0-1.0); EOSINOPHILS ABSOLUTE AUTO 0.2 K/mm3 (0.0-0.4); EOSINOPHILS PERCENT AUTO 2.2 % (0.0-6.0); IMMATURE GRAN ABSOLUTE AUTO 0.01 K/mm3 (0.00-0.05); IMMATURE GRAN PERCENT AUTO 0.1 % (0.0-0.4); LYMPHOCYTES ABSOLUTE AUTO 2.4 K/mm3 (1.0-4.8); LYMPHOCYTES PERCENT AUTO 32.6 % (24.0-44.0); MEAN PLATELET VOLUME 9.2 fl (9.4-12.3); MONOCYTES ABSOLUTE AUTO 0.6 K/mm3 (0.0-0.8); MONOCYTES PERCENT AUTO 8.1 % (0.0-8.0); NEUTROPHILS ABSOLUTE AUTO 4.1 K/mm3 (1.8-7.7); NEUTROPHILS PERCENT AUTO 56.2 % (41.0-71.0); NRBC ABSOLUTE 0.00 (0.00-0.02); NRBC PERCENT 0.0 % (0.0-0.2); PLATELET COUNT,PLT 333 K/mm3 (150-400); RED BLOOD CELL COUNT 5.15 M/mm3 (4.10-5.30); WHITE BLOOD CELL COUNT,WBC 7.24 K/mm3 (3.9-11.3)
[2024-12-25 15:33] LABS: A/G RATIO 1.2 (1-2); ALANINE AMINOTRANSFERASE,ALT 22.0 U/L (14-59); ASPARTATE AMNIOTRANSFERASE,AST 16.0 U/L (15-37); BILIRUBIN TOTAL 0.6 mg/dL (0.2-1.0); BLOOD UREA NITROGEN,BUN 13.0 mg/dL (7-18); CARBON DIOXIDE,CO2 27.0 mEq/L (21-32); CHLORIDE,CL 109.0 mEq/L (98-107); CREATININE 1.1 mg/dL (0.55-1.02); EST CRCL DRUG DOSING (CG) 65.75 mL/min; ESTIMATED GFR 70.0 mL/min (>60); GLUCOSE RANDOM 89.0 mg/dL (70-99); POTASSIUM,K 3.6 mEq/L (3.5-5.1); PROTEIN TOTAL,TP 7.4 g/dl (6.4-8.2); SODIUM,NA 144.0 mEq/L (136-145)
[2024-12-25] MEDS ORDERED: Sodium Chloride 0.9% 10 ML Syringe FLUSH ONE (16:45)
[2024-12-25] MEDS ORDERED: Iopamidol 755 Mg/ML 100 ML Bottle IVPUSH ONE (16:45)
[2024-12-25] MEDS: Iopamidol 755 Mg/ML 100 ML Bottle IVPUSH ONE (16:48)
[2024-12-25] MEDS: Sodium Chloride 0.9% 10 ML Syringe FLUSH ONE (16:48)
[2024-12-25 17:55] VITALS: BP 130/82
== END 2024-12-25 17:50 | disposition home or self-care (01) ==
LOC: JD.ED 13:53
DX: J21.9 Acute bronchiolitis, unspecified (principal); E66.9 Obesity, unspecified; E03.9 Hypothyroidism, unspecified; Z91.09 Other allergy status, other than to drugs and biological substances; Z91.048 Other nonmedicinal substance allergy status; Z79.890 Hormone replacement therapy; Z79.84 Long term (current) use of oral hypoglycemic drugs; Z79.899 Other long term (current) drug therapy; Z90.49 Acquired absence of other specified parts of digestive tract; Z68.39 Body mass index [BMI] 39.0-39.9, adult
CPT/HCPCS: 36415; 71275; 80053; 84703; 85025; 93005; 99285; Q9967; 99283